=== PATIENT | female | born 1995 | race Caucasian/White ===

== ENCOUNTER 2022-05-08 18:12 | Observation (INO) | payer OTHER, SELFPAY ==
--- NOTE | 2022-05-08 16:06 | ECG_ITS ---
Measurements Intervals [place] Rate: 97 P: 42 FL: 131 QRS: 25 QRSD: 74 T: 20 QT: 316 QTc: 402 Interpretive Statements SINUS RHYTHM NORMAL ECG NO PREVIOUS ECG AVAILABLE FOR COMPARISON Electronically Signed On 05-08-2022 20:11:09 BLOOD BANK TECHNICIAN by Arian Hylton D.O.
[2022-05-08 16:32] VITALS: BP 130/77; PULSE 95; RESP 16; TEMP 36.9; O2SAT 99
[2022-05-08 16:59] LABS: Basophils Absolute Auto 0.1 K/mm3 (0.0-0.1); Basophils Percent Auto 0.6 % (0.2-1.2); Eosinophils Absolute Auto 0.1 K/mm3 (0-0.3); Eosinophils Percent Auto 0.9 % (0-4.4); Hematocrit 36.5 % (37.0-47.0); Hemoglobin 12.2 g/dL (12.0-15.0); Lymphocytes Absolute Auto 2.65 K/mm3 (0.9-3.2); Lymphocytes Percent Auto 27.7 % (18.3-44.2); Mean Corpuscular HGB Conc 33.4 g/dl (32-36); Mean Corpuscular Hemoglobin 27.8 pg (26-34); Mean Corpuscular Volume 83.1 fl (80-100); Mean Platelet Volume 10.2 fl (7.4-10.4); Monocytes Absolute Auto 0.6 K/mm3 (0.1-0.6); Monocytes Percent Auto 6.3 % (2.6-8.5); Neutrophils Absolute Auto 6.1 K/mm3 (1.3-6.7); Neutrophils Percent Auto 63.5 % (45.5-73.1); Platelet Count Result 309 k/mm3 (150-375); Red Blood Count 4.39 M/mm3 (4.2-5.4); Red Cell Distribution Width 12.6 % (11.5-14.5); White Blood Count 9.6 K/mm3 (4.5-10.0)
[2022-05-08 17:10] LABS: Potassium 4.2 mmol/L (3.4-5.0)
[2022-05-08 17:12] LABS: Appearance Urine Clear (Clear); Bilirubin Urine 1+ (Negative); Blood Urine Negative (Negative); Color Urine Yellow (Yellow); Glucose Urine UA Negative (Negative); Ketones Urine 1+ mg/dL (Negative); Leukocyte Esterase Ur Negative LEU/UL (Negative); Nitrate Urine Negative (Negative); Protein Urine 1+ mg/dL (Negative); Specific Grav Ur >= 1.030 (1.001-1.035); Urobilinogen Urine >=8.0 mg/dL (<2.0); pH Urine 5.5 (5.0-9.0)
[2022-05-08 17:12] LABS: Alanine Aminotransferase 29 U/L (6-35); Albumin Level 3.7 g/dL (3.5-5.1); Alkaline Phosphatase 167 U/L (38-126); Anion Gap 8 mmol/L (8-16); Aspartate Amino Transferase 26 U/L (14-36); Bilirubin,Total 0.4 mg/dL (0.2-1.3); Blood Urea Nitrogen 9 mg/dL (7-17); Calcium 9.3 mg/dL (8.4-10.2); Carbon Dioxide 22 mmol/L (22-30); Chloride 105 mmol/L (98-107); Estimated CRCL calculation 153 ml/min; Estimated Glomerular Filt Rate > 60; Glucose 92 mg/dL (65-110); Sodium 135 mmol/L (137-145)
[2022-05-08 17:18] LABS: Bacteria Urine Trace /hpf; Calcium Oxalate Crystals Urine Many /hpf; Mucus Urine Few /lpf; Squamous Epithelial Cell Urine Occasional /hpf (Few); WBC Urine 0-3 /hpf
[2022-05-08 17:28] LABS: Add Urine Microscopic? YES
[2022-05-08 18:27] VITALS: BP 123/71; PULSE 94
[2022-05-08 18:31] VITALS: BP 124/74; PULSE 93
[2022-05-08 18:46] VITALS: BP 127/78; PULSE 86
[2022-05-08] MEDS: LACTATED RINGERS 1,000 ML 999 ML IV CONT ×2 (19:02→20:40)
[2022-05-08 19:11] VITALS: BMI 36.1
--- NOTE | 2022-05-08 19:12 | OBADM ---
This patient, Luana Marrero, admitted to the OB room OB Post 113 for observation. Patient/family oriented to hospital policies and general routines including ID bracelet, bed and alarms, visiting hours, pain management, procedures, bathroom and other care routines, personal items, smoking policy, room service/diet, and visiting hours. Patient/Family are encouraged to report perceived risks to care and to ask questions if they do not understand what they are told or what they should do.
--- NOTE | 2022-05-08 19:16 | PC.NURSE ---
PT CAME FROM ER WITH C/O BEING DIZZY, LIGHTHEADED, ABDOMINAL CRAMPING-NO BLEEDING, RUQ PAIN, NO HEADACHE TODAY AND FOR THE LAST COUPLE DAYS. PT STATES THAT SHE HASN'T EATEN SINCE THIS AM AND HASN'T DRANK ALOT TODAY. 1841- SPOKE WITH DR. PAN IN L&D DEPT. INFORMED OF PT ADMISSION- LABS REVIEWED. VITALS REVIEWED. FHT REVIEWED. ORDER RECEIVED TO GIVE LR BOLUS AND MONITOR AND NST. WILL CONTINUE TO MONITOR PT AND CALL IF QUESTIONS/CONCERNS.
[2022-05-08 19:20] VITALS: PULSE 95
--- NOTE | 2022-05-08 20:24 | PC.NURSE ---
Called Dr. Wheeler- updated on pt status. UOP of 100 after 1 liter LR and 1 liter po fluids. order received to give another LR 500mL bolus and reevaluate after fluids are in . will continue to monitor and call if questions/concerns.
[2022-05-08 20:42] VITALS: TEMP 36.1
--- NOTE | 2022-05-08 21:19 | PC.NURSE ---
called Dr. Wheeler- after IV and po fluids and food pt states that she feels alot better and is wanting to d/c home. order received to d/c home with instructions on when to return to l&d.
--- NOTE | 2022-05-24 09:53 | PM.OBTRLD ---
OB - Triage/Final Diagnosis Visit Information Comments/Additional reasons for admission: I have assessed the risk for this patient, Luana Guevara, and determined that she would benefit from observation care. Evaluation Laboratory results: Laboratory Tests 05/08/22 05/08/22 05/08/22 16:50 16:50 17:03 WBC 9.6 RBC 4.39 Hgb 12.2 Hct 36.5 L MCV 83.1 MCH 27.8 MCHC 33.4 RDW 12.6 Plt Count 309 MPV 10.2 Immature Gran % (Auto) 1.0 H Neut % (Auto) 63.5 Lymph % (Auto) 27.7 [place] % (Auto) 6.3 Eos % (Auto) 0.9 Baso % (Auto) 0.6 Lymph # (Auto) 2.65 [place] # (Auto) 0.6 Eos # (Auto) 0.1 Baso # (Auto) 0.1 Abs Immat Gran (auto) 0.10 H Absolute Neuts (auto) 6.1 Absolute Nucleated RBC 0.0 Nucleated RBC % 0.0 Sodium 135 L Potassium 4.2 Chloride 105 Carbon Dioxide 22 Anion Gap 8 BUN 9 Creatinine 0.60 L Estim Creat Clear Calc 153 Estimated GFR > 60 Glucose 92 Calcium 9.3 Total Bilirubin 0.4 AST 26 ALT 29 Alkaline Phosphatase 167 H Total Protein 7.0 Albumin 3.7 Urine Color Yellow Urine Appearance Clear Urine pH 5.5 Ur Specific [place] >= 1.030 Urine Protein 1+ H Urine Glucose (UA) Negative Urine Ketones 1+ H Ur Blood (Man) Negative Urine Nitrate Negative Urine Bilirubin 1+ H Urine Urobilinogen >=8.0 Leukocyte Esterase Rfl Negative Urine RBC 6-10 H Urine WBC 0-3 Ur Squamous Epith Cells Occasional Calcium Oxalate Crystal Many Urine Bacteria Trace Urine Mucus Few H Final Diagnosis (1) Dizziness: Code(s): R42 - Dizziness and giddiness Status: Acute
== END 2022-05-08 21:36 | disposition home or self-care (01) ==
PROVIDERS: Emergency Medicine; Admitting Provider Obstetrics & Gynecology; Visit Provider Obstetrics & Gynecology
DX: O26.893 Other specified pregnancy related conditions, third trimester (principal); R42 Dizziness and giddiness; Z3A.34 34 weeks gestation of pregnancy
CPT/HCPCS: 36415; 59025; 80053; 81001; 85025; 93005; 96360; 96361; G0378; G0379; J7120

== ENCOUNTER 2022-05-12 19:53 | Observation (INO) | payer OTHER, SELFPAY ==
[2022-05-12] VITALS (12 sets, daily range): BP systolic 111; BP diastolic 73; PULSE 78–93; O2SAT 96–97
--- NOTE | 2022-05-12 20:00 | PC.NURSE ---
Pt arrived to unit with c/o lower back pain and pelvic pain that feels like strong period cramps . Pt denies any vaginal bleeding, leaking of fluid, or sexual intercourse in 24 hours and states she has been feeling movement. Pt states she has had 3 jugs of water to drink today and last ate at 1730 tonight.
[2022-05-12 20:41] LABS: Appearance Urine Clear (Clear); Bilirubin Urine Negative (Negative); Blood Urine Negative (Negative); Color Urine Yellow (Yellow); Glucose Urine UA Negative (Negative); Ketones Urine Negative (Negative); Leukocyte Esterase Ur Trace LEU/UL (Negative); Nitrate Urine Negative (Negative); Protein Urine Negative (Negative); Urobilinogen Urine 0.2 mg/dL (<2.0)
[2022-05-12 20:46] LABS: Amorphous Sediment Urine Few; Bacteria Urine 1+ /hpf; Mucus Urine Rare /lpf; RBC Urine 0-2 /hpf (0-2); Squamous Epithelial Cell Urine Occasional /hpf (Few)
[2022-05-12 20:47] LABS: Add Urine Microscopic? YES
--- NOTE | 2022-05-12 21:00 | PC.NURSE ---
Dr. Sinha called via freelance copywriter and informed of patient arrival and c/o strong period cramps, CAT1 tracing and no contractions on monitor with active movement. UA results given to MD. Orders received to discharge patient to home.
--- NOTE | 2022-05-17 07:17 | PM.OBTRLD ---
OB - Triage/Final Diagnosis Visit Information Comments/Additional reasons for admission: I have assessed the risk for this patient, Luana Guevara, and determined that she would benefit from observation care. Evaluation Laboratory results: Laboratory Tests 05/12/22 20:19 Urine Color Yellow Urine Appearance Clear Urine pH 7.0 Ur Specific [place] 1.010 Urine Protein Negative Urine Glucose (UA) Negative Urine Ketones Negative Ur Blood (Man) Negative Urine Nitrate Negative Urine Bilirubin Negative Urine Urobilinogen 0.2 Leukocyte Esterase Rfl Trace H Urine RBC 0-2 Urine WBC 4-6 H Ur Squamous Epith Cells Occasional Amorphous Sediment Few H Urine Bacteria 1+ H Urine Mucus Rare Final Diagnosis (1) contractions: Code(s): O47.00 - False labor before 37 completed weeks of gestation, unspecified trimester Status: Acute
== END 2022-05-12 21:20 | disposition home or self-care (01) ==
PROVIDERS: Admitting Provider Obstetrics & Gynecology; Visit Provider Obstetrics & Gynecology
DX: O47.00 False labor before 37 completed weeks of gestation, unspecified trimester (principal); Z3A.00 Weeks of gestation of pregnancy not specified
CPT/HCPCS: 59025; 81001; G0378; G0379

== ENCOUNTER 2022-06-06 06:28 | Inpatient (IN) | payer OTHER, SELFPAY ==
[2022-06-06] VITALS (145 sets, daily range): BP systolic 92–145; BP diastolic 44–117; PULSE 56–183; RESP 18; TEMP 36.2–36.9; O2SAT 95–100; BMI 35.2
--- NOTE | 2022-06-06 07:19 | LDADM ---
This patient, Luana Guevara, was admitted to Labor/Delivery/Recovery 108 on 06/06/22 at 06:28. Plans for labor, pain management and were discussed with patient. Patient/family oriented to hospital policies and general routines including ID bracelet, bed and alarms, visiting hours, pain management, procedures, bathroom and other care routines, personal items, smoking policy, room service/diet and guest tray routines, infant security routines, and visiting hours. Patient/Family are encouraged to report perceived risks to care and to ask questions if they do not understand what they are told or what they should do. See OBIX for further documentation.
[2022-06-06 07:49] LABS: Basophils Absolute Auto 0.1 K/mm3 (0.0-0.1); Basophils Percent Auto 0.9 % (0.2-1.2); Eosinophils Absolute Auto 0.1 K/mm3 (0-0.3); Eosinophils Percent Auto 0.5 % (0-4.4); Hematocrit 36.8 % (37.0-47.0); Hemoglobin 12.1 g/dL (12.0-15.0); Immature Granulocyte Percent A 0.9 % (0-0.5); Lymphocytes Absolute Auto 3.13 K/mm3 (0.9-3.2); Lymphocytes Percent Auto 29.6 % (18.3-44.2); Mean Corpuscular HGB Conc 32.9 g/dl (32-36); Mean Platelet Volume 10.7 fl (7.4-10.4); Monocytes Absolute Auto 0.7 K/mm3 (0.1-0.6); Monocytes Percent Auto 6.7 % (2.6-8.5); Neutrophils Absolute Auto 6.5 K/mm3 (1.3-6.7); Neutrophils Percent Auto 61.4 % (45.5-73.1); Platelet Count Result 291 k/mm3 (150-375); Red Blood Count 4.66 M/mm3 (4.2-5.4); Red Cell Distribution Width 12.7 % (11.5-14.5); White Blood Count 10.6 K/mm3 (4.5-10.0)
[2022-06-06] MEDS: LACTATED RINGERS 1,000 ML 125 ML IV CONT ×2 (08:06→15:40)
[2022-06-06] MEDS: OXYTOCIN 30 UNITS/NS 500 ML 30 UNITS/500 ML BAG 6 UNITS IV CONT (08:08)
[2022-06-06 10:33] LABS: Amphetamine Screen Urine Negative (Negative); Barbiturate Screen Urine Negative (Negative); Benzodiazepines Screen Urine Negative (Negative); Cannabinoid Screen Urine Negative (Negative); Cocaine Screen Urine Negative (Negative); Methadone Screen Urine Negative (Negative); Opiate Screen Urine Negative (Negative); Phencyclidine Screen Urine Negative (Negative)
--- NOTE | 2022-06-06 10:59 | WPDHPUPDATE1 ---
History and Physical Update Update Date/Time: 06/06/22 10:59 This patient is a 26-year-old 1 at term who presents for induction of labor. Elective. Artificial rupture membranes was performed. She has been receiving Pitocin IV for a few hours. IUPC was placed. The cervix is 3-1/2 cm / 50%/ -3. There is reassuring status. Expectant management. History and Physical has been reviewed, including an updated exam of the patient. There are NO changes in the patient's condition. Risks, benefits, and alternatives have been discussed and questions answered. Patient agrees to proceed with procedure.
[2022-06-06] MEDS: LACTATED RINGERS 1,000 ML 999 ML IV CONT ×2 (12:27→13:25)
[2022-06-06] MEDS: fentaNYL CITRATE INJ (*CRX) 100 MCG/2 ML VIAL IV PUSH (12:32)
--- NOTE | 2022-06-06 13:26 | WPDANESEPPF ---
Anes - Initial Pre Proc Eval Date/Time: 06/06/22 13:26 Surgeon: Garret Wheeler MD Pre Op Diagnosis: IOL Patient Data Age: 26 Gender: F Height: 1.7 m Weight: 102 kg Last Vital Signs Temp 36.4 C L 06/06/22 10:53 Pulse 86 06/06/22 13:16 BP 112/65 06/06/22 13:16 Allergies Allergy/AdvReac Type Severity Reaction Status Date / Time No Known Allergies Allergy Verified 05/08/22 16:35 Laboratory Tests 06/06/22 06/06/22 06/06/22 07:40 07:40 07:40 WBC 10.6 K/mm3 H K/mm3 (4.5-10.0) RBC 4.66 M/mm3 M/mm3 (4.2-5.4) Hgb 12.1 g/dL g/dL (12.0-15.0) Hct 36.8 % L % (37.0-47.0) MCV 79.0 fl L fl (80-100) MCH 26.0 pg pg (26-34) MCHC 32.9 g/dl g/dl (32-36) RDW 12.7 % % (11.5-14.5) Plt Count 291 k/mm3 k/mm3 (150-375) MPV 10.7 fl H fl (7.4-10.4) Immature Gran % (Auto) 0.9 % H % (0-0.5) Neut % (Auto) 61.4 % % (45.5-73.1) Lymph % (Auto) 29.6 % % (18.3-44.2) [place] % (Auto) 6.7 % % (2.6-8.5) Eos % (Auto) 0.5 % % (0-4.4) Baso % (Auto) 0.9 % % (0.2-1.2) Lymph # (Auto) 3.13 K/mm3 K/mm3 (0.9-3.2) [place] # (Auto) 0.7 K/mm3 H K/mm3 (0.1-0.6) Eos # (Auto) 0.1 K/mm3 K/mm3 (0-0.3) Baso # (Auto) 0.1 K/mm3 K/mm3 (0.0-0.1) Abs Immat Gran (auto) 0.10 K/mm3 H K/mm3 (0.00-0.031) Absolute Neuts (auto) 6.5 K/mm3 K/mm3 (1.3-6.7) Absolute Nucleated RBC 0.0 K/mm3 K/mm3 (0.0-0.012) Nucleated RBC % 0.0 % % (0.0-0.2) Urine Opiates Screen Urine Methadone Screen Ur Barbiturates Screen Ur Phencyclidine Scrn Ur Amphetamine Screen U Benzodiazepines Scrn Urine Cocaine Screen U Cannabinoids Screen RPR Pending Blood Type O Positive Antibody Screen Negative 06/06/22 09:59 WBC RBC Hgb Hct MCV MCH MCHC RDW Plt Count MPV Immature Gran % (Auto) Neut % (Auto) Lymph % (Auto) [place] % (Auto) Eos % (Auto) Baso % (Auto) Lymph # (Auto) [place] # (Auto) Eos # (Auto) Baso # (Auto) Abs Immat Gran (auto) Absolute Neuts (auto) Absolute Nucleated RBC Nucleated RBC % Urine Opiates Screen Negative (Negative) Urine Methadone Screen Negative (Negative) Ur Barbiturates Screen Negative (Negative) Ur Phencyclidine Scrn Negative (Negative) Ur Amphetamine Screen Negative (Negative) U Benzodiazepines Scrn Negative (Negative) Urine Cocaine Screen Negative (Negative) U Cannabinoids Screen Negative (Negative) RPR Blood Type Antibody Screen Patient hx anesthesia problems: none Family hx anesthesia problems: none Results Review: All pre-operative results and documents have been reviewed as part of the pre-operative evaluation. [facility] Social History Social History Years smoked: 9 Smoking status: Former smoker Additional smoking assessment comments: Pt. states she quit cigarettes 2 years ago and switched to vaping. Lack of Transportation: No Lack of Food: Sometimes True Current Housing: I Have Housing Concerned About Future Housing: No Difficulty Paying Gas/Electric Bills: No Difficulty Paying for Meds: No Currently Unemployed: No Education: High School Diploma/GED Difficulty w/ Childcare or Family Care: No Spiritual care concerns: No Anes - Eval Final PreProcedure Day of Procedure 06/06/22 13:26 Patient weight: obese Heart: regular rate and rhythm Lungs: clear to auscultation and normal air movement Airway: Mallampati scale class II Neurological: alert and oriented Last oral intake: >/= 8 hours
--- NOTE | 2022-06-06 18:47 | PM.OBPRVD ---
OB - Delivery Note Procedure Delivery date: 06/06/22 Procedure: vaginal delivery Induction method: AROM and Per Pitocin Protocol Delivery monitor: External FHT, External Uterine and Internal Uterine Route of delivery: Episiotomy description: None Laceration Description: None Delivery repair: vicryl Specimen: No Quantitative Blood Loss (ml): 90 Anesthesia type: Epidural Disposition: Floor Baby Date of : 06/06/22 Time of : 18:36 Weeks of gestation at delivery: 39 gender: Female Weight (pounds): 5 Weight (ounces): 7 presentation: vertex position: Left Occiput Anterior Placenta delivery description: Spontaneous Cord Vessel Description: 3 Vessels, Clamped/Cut and Delayed Cord Clamping score one minute: 9 score five minutes: 9 Narrative: mother and baby skin to skin in stable condition
[2022-06-06] MEDS: OXYTOCIN 30 UNITS/NS 500 ML 30 UNITS/500 ML BAG 125 UNITS IV CONT (18:58)
[2022-06-06] MEDS: IBUPROFEN 600 MG TABLET PO (21:59)
[2022-06-06] MEDS: WITCH HAZEL 40 PADS 1 PAD TOPICAL (22:00)
[2022-06-06] MEDS: BENZOCAINE 20% AER SPR (*SP) 56 GM CAN 1 SPRAY TOPICAL (22:00)
[2022-06-07] MEDS: ACETAMINOPHEN 325 MG TABLET 650 MG PO ×3 (01:44→16:53)
[2022-06-07 04:03] VITALS: BP 106/66; PULSE 66; RESP 20; TEMP 36.2; O2SAT 97
[2022-06-07 05:38] LABS: Hematocrit 33.1 % (37.0-47.0); Hemoglobin 10.6 g/dL (12.0-15.0)
--- NOTE | 2022-06-07 07:35 | PM.OBPNVD ---
OB - PN: Subj Subjective Date/time seen: 06/07/22 07:35 vaginal delivery day 1 OB - PN: Obj Data Labs 06/07/22 05:25 Labs: Laboratory Results - last 24 hr 06/06/22 06/06/22 06/06/22 07:40 07:40 09:59 WBC 10.6 H RBC 4.66 Hgb 12.1 Hct 36.8 L MCV 79.0 L MCH 26.0 MCHC 32.9 RDW 12.7 Plt Count 291 MPV 10.7 H Immature Gran % (Auto) 0.9 H Neut % (Auto) 61.4 Lymph % (Auto) 29.6 [place] % (Auto) 6.7 Eos % (Auto) 0.5 Baso % (Auto) 0.9 Lymph # (Auto) 3.13 [place] # (Auto) 0.7 H Eos # (Auto) 0.1 Baso # (Auto) 0.1 Abs Immat Gran (auto) 0.10 H Absolute Neuts (auto) 6.5 Absolute Nucleated RBC 0.0 Nucleated RBC % 0.0 Urine Opiates Screen Negative Urine Methadone Screen Negative Ur Barbiturates Screen Negative Ur Phencyclidine Scrn Negative Ur Amphetamine Screen Negative U Benzodiazepines Scrn Negative Urine Cocaine Screen Negative U Cannabinoids Screen Negative Blood Type O Positive Antibody Screen Negative 06/07/22 05:25 WBC RBC Hgb 10.6 L Hct 33.1 L MCV MCH MCHC RDW Plt Count MPV Immature Gran % (Auto) Neut % (Auto) Lymph % (Auto) [place] % (Auto) Eos % (Auto) Baso % (Auto) Lymph # (Auto) [place] # (Auto) Eos # (Auto) Baso # (Auto) Abs Immat Gran (auto) Absolute Neuts (auto) Absolute Nucleated RBC Nucleated RBC % Urine Opiates Screen Urine Methadone Screen Ur Barbiturates Screen Ur Phencyclidine Scrn Ur Amphetamine Screen U Benzodiazepines Scrn Urine Cocaine Screen U Cannabinoids Screen Blood Type Antibody Screen OB - PN A/P Plan day: 1 Time Spent With Patient Time: Total time spent is greater than 50% in coordination of care (as documented) at patient's floor/unit and/or counseling patient: Review of Systems Review of Systems: All systems reviewed & are unremarkable except as noted in HPI and below Exam Const: General: cooperative, healthy appearing and comfortable
--- NOTE | 2022-06-07 07:35 | WPDANLDPN2 ---
Anes-Prog Note L&D Date/Time: 06/07/22 07:35 Comfortable throughout: labor and delivery Neuraxial method: epidural Epidural/Spinal procedure site: clean & non-tender Neuro status: Neuro function grossly intact. Cardiovascular status: normal Respiratory status: normal Airway patency: baseline Mental status: baseline Post-Op hydration status: normal Vital Signs: Last Vital Signs Temp 36.2 C L 06/07/22 04:03 Pulse 66 06/07/22 04:03 Resp 20 06/07/22 04:03 BP 106/66 06/07/22 04:03 Pulse Ox 97 06/07/22 04:03 O2 Del Method Room Air 06/07/22 04:03 Pain score (VAS): 2 I/O: Intake & Output 06/06/22 06/06/22 06/07/22 15:59 23:59 07:59 Intake Total 3000 Output Total 90 Balance 3000 -90 Patient feedback: Patient satisfied with anesthetic care.
--- NOTE | 2022-06-07 07:45 | PC.NURSE ---
PT introductions made and plan of care discussed per post , pain management, breast/bottle feeding, daily care activities, and blood sugars. PT received such instructions per one to one discussion, mom baby care guide and demonstrations this shift. PT and significant other both recipients of such instructions and no barriers to learning identified at this time. PT verbalized understanding of such instructions.
[2022-06-07 09:00] VITALS: BP 99/76; PULSE 71; RESP 18; TEMP 36.7; O2SAT 98
[2022-06-07] MEDS: DOCUSATE SODIUM 100 MG CAPSULE PO ×2 (10:25→16:54)
[2022-06-07] MEDS: MULTIVIT/MIN/PREN/FOL AC/IRON TABLET 1 TAB PO (10:26)
[2022-06-07] MEDS: LANOLIN (LANSINOH) 7.5 GM CREAM 1 APPLIC TOPICAL (10:26)
[2022-06-07] MEDS: IBUPROFEN 600 MG TABLET PO ×2 (10:26→16:54)
[2022-06-07 10:27] VITALS: PULSE 79; RESP 16; O2SAT 98
[2022-06-07 12:05] VITALS: BP 106/63; PULSE 79; RESP 16; TEMP 36.8; O2SAT 98
--- NOTE | 2022-06-07 13:35 | PC.NURSE ---
[id number] Introductions were made, then consulted with patient to assess needs related to . Mother led the conversation with her?plans to feed?her infant and the?experience so far. Resources provided for inpatient using a mom/baby guide. Mother voiced understanding of information and requested assistance. Mother works well with her with encouragement and education. Encouraged understanding of the benefits of skin to skin (unwrapping infant and placing vertically on her chest), massage touch, responsive feeding, how to visualize early feeding signs, frequency of feeding on demand about every 8-12 times in 24 hours (every 2-3 hours), milk production, duration of feeding, signs of adequate intake/output and how to record on the feeding sheet. Reviewed positioning and ear, shoulder, hip alignment, supporting the breast, asymmetrical latch (off-center), and leading with the chin with a big open side gape. Infant latched optimally to the right breast in football position. Education given to mother of how to visualize suck/swallow ratios and drinking at the breast. Infant was unable to maintain latch for more than a few minutes at a time. was more eager after a few attempts working to encourage a big, open, wide latch. Nipple care reviewed with optimal latch and good positioning. Reviewed good handwashing when or touching the breast/nipples to prevent infection. Resources used to facilitate learning were used with the visual handouts, tool, mom and baby guide. Mother voiced understanding of responsive feedings, stimulating with skin to skin, hand expressed colostrum, massage touch, talking to infant to encourage if it has been 2 -3 hours since the start of the last , to call if infant does not latch or there is discomfort with . Reported to the primary RN. 1142 - Mother called for assistance with . Mother was encouraged to place infant upright skin to skin between her breast, massage touch, stimulating infant with changing position, talking and checking her diaper. 1144 -Blood sugar resulted at 95mg/dl Assisted mother with attempting to latch optimally with and without the nipple shield. Infant was able to latch without the nipple shield for several minutes on the left breast and demonstrates more eagerness than the earlier practice session. Mother is encouraged to keep working with practicing skin to skin and using the tips and techniques reviewed earlier. Mother voiced understanding to call for assistance with the next feeding, if infant doesn't wake to breastfeed, or if there's pain with and to practice responsive feedings every 2-3 hours or on demand when feeding cues are visualized. Reported to primary RN.
[2022-06-07 15:50] LABS: Rapid Plasma Reagin Non-Reactive (NonReactive)
--- NOTE | 2022-06-07 16:33 | PC.NURSE ---
[id number] Breast pump provided due to ineffective , inverted nipples and use of a nipple shield at times. Instructions given on cleaning, care, usage, that there should be no pain, pumping schedule for milk production, collection, and storage of human milk. Parents are encouraged to record pumping schedule on the feeding sheet. Patient was assessed for correct placement, flange size (21mm), to pump for comfort and nipple stretching/stimulation for adequate milk production every 3 hours (8 times in 24 hours) 1-2 times at night. Mother voiced understanding of the education shared along with mom and baby guide for additional resource information. Reported to the primary RN.
[2022-06-07 17:00] VITALS: BP 100/68; PULSE 82; RESP 20; TEMP 36.6; O2SAT 98
[2022-06-07 19:35] VITALS: BP 120/69; PULSE 72; RESP 20; TEMP 36.8; O2SAT 99
--- NOTE | 2022-06-08 06:14 | PM.OBPNVD ---
OB - PN: Subj Subjective Date/time seen: 06/08/22 06:14 vaginal delivery , day 2 OB - PN: Obj Data Labs 06/07/22 05:25 Labs: Laboratory Results - last 24 hr 06/06/22 07:40 RPR Non-reactive OB - PN A/P Plan day: 2 Plan: routine care and discharge home Time Spent With Patient Time: Total time spent is greater than 50% in coordination of care (as documented) at patient's floor/unit and/or counseling patient: Review of Systems Review of Systems: All systems reviewed & are unremarkable except as noted in HPI and below Exam Const: General: cooperative and healthy appearing Chest: Chest palpation & inspection: normal inspection of the chest Resp: Effort & Inspection: normal respiratory effort
--- NOTE | 2022-06-08 06:16 | P.DS_ITS ---
DS: Admitting Diagnosis Discharge Date 06/08/22 Admitting Diagnosis iol OB - DS: Summary OB Procedures : None OB Procedures Intrapartum: Spontaneous Vag Delivery OB Procedures: : None Time Spent with Patient Time attestation: Total time spent providing and/or coordinating discharge services: DS: Data Data Completed and Pending Labs on day of discharge: Labs from last 24 hours 06/06/22 07:40 RPR Non-reactive Discharge Plan Discharge Attending physician on discharge: Garret Wheeler Discharging Clinician: Svetlana Medrano Patient Disposition: Home, Self-Care Activity: pelvic rest Diet: regular Patient Instructions: Antibiotic Form Stand Alone Forms: General Discharge Information Follow-up/Referrals: Svetlana Medrano, ANTHONYM [Certified Nurse Cardiac/Vascular Sonographer] - 4 Weeks Discharge Medications: New ibuprofen 600 mg Tablet 600 mg PO Q6H PRN (Reason: Cramping) Qty: 30 0RF Date of admission: 06/06/22 06:28 Primary Care Provider: UNKNOWN,DOCTOR Admitting Provider: Garret Wheeler Attending physician on admission: Garret Wheeler Condition: Stable
[2022-06-08 08:00] VITALS: PULSE 73; RESP 16; O2SAT 98
--- NOTE | 2022-06-08 08:16 | PM.OBDSVD ---
DS: Admitting Diagnosis Discharge Date 06/08/22 Admitting Diagnosis term preg OB - DS: Summary OB Procedures : None OB Procedures Intrapartum: Spontaneous Vag Delivery OB Procedures: : None Time Spent with Patient Time attestation: Total time spent providing and/or coordinating discharge services: DS: Data Data Completed and Pending Labs on day of discharge: Labs from last 24 hours 06/06/22 07:40 RPR Non-reactive Discharge Plan Discharge Attending physician on discharge: Garret Wheeler Discharging Clinician: Svetlana Medrano Patient Disposition: Home, Self-Care Activity: pelvic rest Diet: regular Discharge Instructions: Education: Mom and Baby Guide Given to: Mother Follow-Up: Call your delivering provider's office for an appointment to be seen in: 6 Weeks Mom and baby should come to the [facility] for the follow-up appointment. Appointment Date/Time: June 09, 2022 at 8:00 am What to expect at your follow-up visit: Blood Pressure Check Call [phone] if you are unable to keep your appointment time. BREAST CARE: * Wear a snug supportive bra. * For engorgement discomfort: Bottle Feeding: * May apply ice packs PERINEAL CARE: * Until bleeding stops, use your rosetta bottle after urinating * Change your pad frequently throughout the day * You may take sitz baths several times a day (fill your bathtub with warm water and soak for 20 minutes.) Do NOT bathe in the water * No tub baths until seen by your physician - You may shower ACTIVITY: * Rest as much as possible. * Do not exercise or lift anything heavier than your baby (such as laundry or other children.) * Avoid stairs or driving as much as possible. * Do not put anything into the vagina. No douching, tampons, or sexual activity until seen by physician. NOTIFY PHYSICIAN IF YOU HAVE ANY QUESTIONS OR IF ANY OF THE FOLLOWING SYMPTOMS OCCUR: * If your perineum becomes red, swollen, or more painful than what you have experienced in the hospital. * If your vaginal bleeding becomes foul smelling. * If your vaginal bleeding becomes more heavy than a period or if your bleeding changes from pink to bright red. However, you may pass an occasional walnut- sized clot once or twice for the first week . * If you experience a sharp, shooting pain in you calves. * If you discover a hard, reddened area on your breast or if you experience flu-like symptoms. * If you have a fever of 100.4 or greater DIET: * Eat regular, well-balanced meals. * Drink plenty of fluids daily. If , drink to thirst. Patient Instructions: Antibiotic Form Stand Alone Forms: General Discharge Information Follow-up/Referrals: Svetlana Medrano CNM [Certified Nurse Solar Project Engineer] - 4 Weeks Discharge Medications: New ibuprofen 600 mg Tablet 600 mg PO Q6H PRN (Reason: Cramping) Qty: 30 0RF Date of admission: 06/06/22 06:28 Primary Care Provider: UNKNOWN,DOCTOR Admitting Provider: Garret Wheeler Attending physician on admission: Garret Wheeler Condition: Stable
[2022-06-08 08:50] VITALS: BP 100/62; PULSE 73; RESP 16; TEMP 37.1; O2SAT 98
[2022-06-08] MEDS: ACETAMINOPHEN 325 MG TABLET 650 MG PO ×2 (12:51→19:42)
[2022-06-08] MEDS: MULTIVIT/MIN/PREN/FOL AC/IRON TABLET 1 TAB PO (12:52)
[2022-06-08] MEDS: IBUPROFEN 600 MG TABLET PO ×2 (12:52→19:42)
[2022-06-08] MEDS: DOCUSATE SODIUM 100 MG CAPSULE PO (12:53)
--- NOTE | 2022-06-08 18:44 | PC.NURSE ---
Patients rubella status was verified in the record as being immune.
--- NOTE | 2022-06-08 19:45 | PC.NURSE ---
Patient viewed the discharge video Mother & Baby Care, The First Two Weeks . Patient was given the opportunity and encouraged to ask questions. Patient verbalized understanding of information shared and has been given the mother/baby guide for home reference.
--- NOTE | 2022-06-08 19:50 | PC.NURSE ---
Patient discharged to a no care bed. Supplies given.
[2022-06-10 10:01] VITALS: BP 114/75; PULSE 85; RESP 20; TEMP 36.8; O2SAT 98
== END 2022-06-08 19:50 | disposition home or self-care (01) | DRG 560 ==
LOC: ANHLDR 06:36 → ANHOB2 22:31
PROVIDERS: Advanced Practice Midwife; Admitting Provider Obstetrics & Gynecology; Visit Provider Obstetrics & Gynecology
DX: O36.5930 Maternal care for other known or suspected poor fetal growth, third trimester, not applicable or unspecified (principal); O32.6XX0 Maternal care for compound presentation, not applicable or unspecified; Z37.0 Single live birth; Z3A.39 39 weeks gestation of pregnancy
CPT/HCPCS: 36415; 80307; 85014; 85018; 85025; 86592; 86850; 86900; 86901; A9270; J2590; J2795; J3010; J7120

== ENCOUNTER 2024-02-21 15:58 | Emergency (ER) | payer OTHER, SELFPAY ==
--- NOTE | ~2024-02-21 | US_ITS ---
EXAMINATION: US OB <= 14 weeks fetus DATE: 02/21/2024 17:38 INDICATION: Right abdominal cramping. Vaginal bleeding. TECHNIQUE: Real-time transabdominal and transvaginal pelvic ultrasound was performed. COMPARISON: None. FINDINGS: TRANSABDOMINAL ULTRASOUND: The uterus measures 10.6 x 7.6 x 7.3 cm. TRANSVAGINAL ULTRASOUND: There is an intrauterine gestational sac. A yolk sac is identified. The fet al crown rump length measures 2.2 cm, which correlates with an estimated gestational age of 8 weeks a nd 6 days. heart motion is not identified by M-mode Doppler. The right ovary measures 3.0 x 3.1 x 2.2 cm. The left ovary is not well visualized. There is physiologic free fluid in the pelvis. IMPRESSION: 1. demise. Reviewed, dictated and finalized at location A. IMPRESSION: 1. demise.
[2024-02-21 16:04] VITALS: BP 116/78; PULSE 92; RESP 16; TEMP 36.8; O2SAT 98
--- NOTE | 2024-02-21 16:32 | ED.FEMALEGU ---
HPI - Female Genitourinary General Chief complaint: Vaginal Bleeding <Elmer Castillo PA-C - Last Filed: 02/21/24 16:38> Stated complaint: 12 weeks abd pain <Elmer Castillo PA-C - Last Filed: 02/21/24 16:38> Time Seen by Provider: 02/21/24 16:34 <Elmer Castillo PA-C - Last Filed: 02/21/24 16:38> Focused HPI: This is a 28-year-old female who is around 12 weeks , , and presents to the ED for chief complaint of abdominal pain and vaginal spotting. Reports over the past couple of days she has had right-sided abdominal cramps associated with brown vaginal discharge but no heavy bleeding. 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 Endorses nausea but no vomiting. Denies fevers, chills or any concern for STD. Endorses lightheadedness but denies syncope. Follows with Dr. Wheeler GENERAL: Well-appearing, well-nourished, and in no acute distress. HEAD: Normocephalic, atraumatic. CHEST: Clear to auscultation. No respiratory distress. HEART: Regular rate and rhythm. NEURO: Alert and oriented x3. Patient screened in triage and initial orders placed. Additional care and disposition to be based upon diagnostic testing and treatment. <Elmer Castillo PA-C - Last Filed: 02/21/24 16:38> Source: patient <Elmer Castillo PA-C - Last Filed: 02/21/24 16:38> Mode of arrival: EMS <Elmer Castillo PA-C - Last Filed: 02/21/24 16:38> Limitations: no limitations <Elmer Castillo PA-C - Last Filed: 02/21/24 16:38> History of Present Illness HPI Narrative: I agree with the note/assessment performed by Elmer Chow PA-C. <Maritza Stanley APRN - Last Filed: 02/21/24 21:52> Related Data Allergies/Adverse reactions: Allergies Allergy/AdvReac Type Severity Reaction Status Date / Time No Known Allergies Allergy Verified 05/08/22 16:35 <Elmer Castillo PA-C - Last Filed: 02/21/24 16:38> Review of Systems Review of Systems: All systems reviewed & are unremarkable except as noted in HPI and below <Maritza Stanley APRN - Last Filed: 02/21/24 21:52> [facility] Social History Social History: Social History Years smoked: 9 Smoking status: Former smoker Additional smoking assessment comments: Pt. states she quit cigarettes 2 years ago and switched to vaping. Lack of Transportation: No Lack of Food: Sometimes True Current Housing: I Have Housing Concerned About Future Housing: No Difficulty Paying Gas/Electric Bills: No Difficulty Paying for Meds: No Currently Unemployed: No Education: High School Diploma/GED Difficulty w/ Childcare or Family Care: No Spiritual care concerns: No <Elmer Castillo PA-C - Last Filed: 02/21/24 16:38> Exam Narrative: GENERAL: Well appearing, well-nourished, non-toxic, in no acute distress. HEAD: Normocephalic, atraumatic. NECK: Supple. No adenopathy, no masses. RESPIRATORY: Airway patent, respirations nonlabored. Clear to auscultation bilaterally, no rales, rhonchi, wheezing. CARDIOVASCULAR: Regular rate and rhythm without murmurs, rubs, or gallops. Peripheral pulses 2+ and equal bilaterally. ABDOMINAL: Soft, nontender, nondistended, no hepatosplenomegaly. Normoactive BS. MUSCULOSKELETAL: Moves all extremities. Strength/ROM intact without gross deformities. SKIN: Warm, dry, normal color. No rashes. NEURO: A&O X3. Speech clear. Cranial nerves II-XII grossly intact. Steady gait. No ataxic movements. PSYCHIATRIC: Appropriate mood and affect. Normal interaction. <Maritza Stanley APRN - Last Filed: 02/21/24 21:52> Course Consultations Consultation #1: Call placed to Dr. Wheeler, pt's OBGYN. He recommends pt follow-up with him in the office RAUDEL. <Maritza Stanley APRN - Last Filed: 02/21/24 21:52> Date: 02/21/24 <Maritza Stanley, HYDROELECTRIC OPERATOR - Last Filed: 02/21/24 21:52> Time: 21:31 <Maritza Stanley, DARRELL - Last
[2024-02-21 16:43] LABS: Basophils Percent Auto 0.6 % (0.2-1.2); Eosinophils Absolute Auto 0.1 K/mm3 (0-0.3); Eosinophils Percent Auto 1.5 % (0-4.4); Hematocrit 39.7 % (37.0-47.0); Hemoglobin 12.9 g/dL (12.0-15.0); Immature Granulocyte Absolute 0.03 K/mm3 (0.00-0.031); Immature Granulocyte Percent A 0.4 % (0-0.5); Lymphocytes Absolute Auto 1.53 K/mm3 (0.9-3.2); Lymphocytes Percent Auto 22.2 % (18.3-44.2); Mean Corpuscular HGB Conc 32.5 g/dl (32-36); Mean Corpuscular Hemoglobin 24.9 pg (26-34); Mean Corpuscular Volume 76.6 fl (80-100); Mean Platelet Volume 10.6 fl (7.4-10.4); Monocytes Absolute Auto 0.5 K/mm3 (0.1-0.6); Monocytes Percent Auto 6.7 % (2.6-8.5); Neutrophils Absolute Auto 4.7 K/mm3 (1.3-6.7); Neutrophils Percent Auto 68.6 % (45.5-73.1); Platelet Count Result 283 k/mm3 (150-375); Red Blood Count 5.18 M/mm3 (4.2-5.4); Red Cell Distribution Width 15.8 % (11.5-14.5); White Blood Count 6.9 K/mm3 (4.5-10.0)
[2024-02-21 16:57] LABS: Alanine Aminotransferase 14 U/L (6-35); Albumin Level 4.3 g/dL (3.5-5.1); Alkaline Phosphatase 57 U/L (38-126); Anion Gap 10 mmol/L (4-12); Aspartate Amino Transferase 19 U/L (14-36); Bilirubin,Total 0.5 mg/dL (0.2-1.3); Blood Urea Nitrogen 6 mg/dL (7-17); Calcium 9.5 mg/dL (8.4-10.2); Carbon Dioxide 22 mmol/L (22-30); Chloride 103 mmol/L (98-107); Estimated CRCL calculation 147 ml/min; Estimated Glomerular Filt Rate > 60; Glucose 92 mg/dL (65-110); INR 1.1; Potassium 3.7 mmol/L (3.4-5.0); Prothrombin Time 14.1 Seconds (11.1-14.7); Sodium 135 mmol/L (137-145)
[2024-02-21 16:58] LABS: Partial Thromboplastin Time 25.1 Seconds (22.3-36.8)
[2024-02-21 19:34] LABS: Add Urine Microscopic? YES; Appearance Urine Clear (Clear); Bacteria Urine None Seen /hpf; Bilirubin Urine Negative (Negative); Blood Urine Negative (Negative); Color Urine Yellow (Yellow); Glucose Urine UA Negative (Negative); Ketones Urine 2+ mg/dL (Negative); Leukocyte Esterase Ur Negative LEU/UL (Negative); Nitrate Urine Negative (Negative); Protein Urine 1+ mg/dL (Negative); RBC Urine 0-2 /hpf (0-2); Specific Grav Ur 1.017 (1.001-1.035); Squamous Epithelial Cell Urine None Seen /hpf (Few); WBC Urine 0-5 /hpf (0-3)
[2024-02-21] MEDS: ONDANSETRON INJ 4 MG/2 ML VIAL IV PUSH (20:34)
[2024-02-21] MEDS: SODIUM CHLORIDE 0.9% IV 1,000 ML 999 ML IV CONT (20:34)
[2024-02-21 20:36] VITALS: BP 115/77; PULSE 68; RESP 18; O2SAT 100
[2024-02-21] MEDS: HYDROcodone/acetaminophen (*CRX) 5-325 MG TABLET 1 TAB PO (21:49)
[2024-02-21 22:45] VITALS: BP 109/76; PULSE 62; RESP 18; O2SAT 99
== END 2024-02-21 22:45 | disposition home or self-care (01) ==
PROVIDERS: Physician Assistant; Emergency Provider Registered Nurse; Referring Provider Obstetrics & Gynecology
DX: O03.4 Incomplete spontaneous abortion without complication (principal); Z3A.12 12 weeks gestation of pregnancy; O99.331 Smoking (tobacco) complicating pregnancy, first trimester; F17.290 Nicotine dependence, other tobacco product, uncomplicated
CPT/HCPCS: 36415; 76801; 80053; 81001; 84702; 85025; 85461; 85610; 85730; 86850; 86900; 86901; 96361; 96374; 99284; A9270; J2405; J7030

== ENCOUNTER 2024-02-25 15:21 | Emergency (ER) | payer OTHER, SELFPAY ==
--- NOTE | ~2024-02-25 | US_ITS ---
US OB <=14 wk fetus w TV Ordering provider: Jeane Renee PA-C History: . bleeding, . Comparison: None. Technique: Transabdominal and endovaginal ultrasound of the pelvis (Doppler ultrasound interrogation techniques used as needed for this exam.) FINDINGS: CERVIX: Normal. UTERUS: Measures 10.9x 6.3x 7.5 cm in length which is within normal limits and is anteverted. No rose metrial masses. ENDOMETRIUM: Thickened endometrium with no yolk sac or pole seen. Minimal fluid is seen around the endometrial cavity. CUL DE SAC: Minimal free fluid. RIGHT OVARY: Normal in size measuring 2.8x 2.5x 2 cm. Normal echotexture. Doppler vascular flow prese nt. LEFT OVARY: Normal in size measuring 2.9x2.3x 2 cm. Normal echotexture. Doppler vascular flow present . ADNEXA: Normal. No mass. IMPRESSION: No retained products seen. Minimal fluid around the endometrial cavity. Slightly thickened endometriu m. Reviewed, dictated and finalized at location A. IMPRESSION: No retained products seen. Minimal fluid around the endometrial cavity. Slightl y thickened endometrium.
[2024-02-25 15:35] VITALS: BP 127/77; PULSE 107; RESP 18; TEMP 36.6; O2SAT 100
--- NOTE | 2024-02-25 15:37 | ED.RECABL ---
HPI - Recheck/Abnormal Lab/Rx General Chief Complaint: Recheck/Abnormal Lab/Rx <Jeane Renee PA-C - Last Filed: 02/25/24 19:19> Stated Complaint: SENT IN FOR ULTRASOUND <eJane Renee PA-C - Last Filed: 02/25/24 19:19> Time Seen by Provider: 02/25/24 15:37 <Jeane Renee PA-C - Last Filed: 02/25/24 19:19> Focused HPI: This is a 28-year-old female that presents to the emergency department for vaginal bleeding. Reports she is currently about 8 weeks . Was seen here a couple of days ago and told she was having a miscarriage. Has had worsening bleeding and pain today which prompted her to be seen. Her OB is Dr. Wheeler. GENERAL: Well-appearing, well-nourished, and in no acute distress. HEAD: Normocephalic, atraumatic. CHEST: Clear to auscultation. ?No respiratory distress. HEART: Regular rate and rhythm.? NEURO: ?Alert and oriented x3. Patient screened in triage and initial orders placed.? ?Additional care and disposition to be based upon?diagnostic testing and treatment. <Jeane Renee PA-C - Last Filed: 02/25/24 19:19> Related Data Allergies/Adverse Reactions: Allergies Allergy/AdvReac Type Severity Reaction Status Date / Time No Known Allergies Allergy Verified 05/08/22 16:35 <Jeane Renee PA-C - Last Filed: 02/25/24 19:19> Review of Systems Review of Systems: All systems reviewed & are unremarkable except as noted in HPI and below <Maritza Stanley APRN - Last Filed: 02/25/24 19:09> PMFSH Past Medical History Medical History: Medical History (Updated 02/25/24 @ 19:19 by Jeane Renee PA-C) No active medical problems <Jeane Renee PA-C - Last Filed: 02/25/24 19:19> Social History Social History: Social History Years smoked: 9 Smoking status: Former smoker Additional smoking assessment comments: Pt. states she quit cigarettes 2 years ago and switched to vaping. Lack of Transportation: No Lack of Food: Sometimes True Current Housing: I Have Housing Concerned About Future Housing: No Difficulty Paying Gas/Electric Bills: No Difficulty Paying for Meds: No Currently Unemployed: No Education: High School Diploma/GED Difficulty w/ Childcare or Family Care: No Spiritual care concerns: No <Jeane Renee PA-C - Last Filed: 02/25/24 19:19> Exam Narrative: GENERAL: Well appearing, well-nourished, non-toxic, in no acute distress. RESPIRATORY: Airway patent, respirations nonlabored. Clear to auscultation bilaterally, no rales, rhonchi, wheezing. CARDIOVASCULAR: Regular rate and rhythm without murmurs, rubs, or gallops. Peripheral pulses 2+ and equal bilaterally. ABDOMINAL: Soft, tender especially on LLQ, nondistended, no hepatosplenomegaly. Normoactive BS. MUSCULOSKELETAL: Moves all extremities. Strength/ROM intact without gross deformities. SKIN: Warm, dry, normal color. No rashes. NEURO: A&O X3. Speech clear. Cranial nerves II-XII grossly intact. PSYCHIATRIC: Appropriate mood and affect. Normal interaction. <Maritza Stanley, SUBSTATION SUPERINTENDENT - Last Filed: 02/25/24 19:09> Course Vital Signs Vital signs: Vital Signs Temperature 97.9 F 02/25/24 15:35 Pulse Rate 107 H 02/25/24 15:35 Respiratory Rate 18 02/25/24 15:35 Blood Pressure 127/77 02/25/24 15:35 Pulse Oximetry 100 02/25/24 15:35 Temperature 98.0 F 02/25/24 18:51 Pulse Rate 78 02/25/24 18:51 Respiratory Rate 14 02/25/24 18:51 Blood Pressure 129/71 02/25/24 18:51 Pulse Oximetry 97 02/25/24 18:51 <Jeane Renee PA-C - Last Filed: 02/25/24 19:19> Vital Signs Temperature 97.9 F 02/25/24 15:35 Pulse Rate 107 H 02/25/24 15:35 Respiratory Rate 18 02/25/24 15:35 Blood Pressure 127/77 02/25/24 15:35 Pulse Oximetry 100 02/25/24 15:35 Temperature 98.0 F 02/25/24 18:51 Pulse Rate 78 02/25/24 18:51 Respiratory Rate 14 02/25/24
--- NOTE | 2024-02-25 15:47 | PC.NURSE ---
Pt to U/S via w/c from w/r at this time.
[2024-02-25 16:22] LABS: Basophils Absolute Auto 0.1 K/mm3 (0.0-0.1); Basophils Percent Auto 0.5 % (0.2-1.2); Eosinophils Absolute Auto 0.1 K/mm3 (0-0.3); Eosinophils Percent Auto 0.9 % (0-4.4); Hematocrit 37.1 % (37.0-47.0); Immature Granulocyte Absolute 0.05 K/mm3 (0.00-0.031); Immature Granulocyte Percent A 0.4 % (0-0.5); Lymphocytes Absolute Auto 1.74 K/mm3 (0.9-3.2); Lymphocytes Percent Auto 14.9 % (18.3-44.2); Mean Corpuscular HGB Conc 32.3 g/dl (32-36); Mean Corpuscular Hemoglobin 24.8 pg (26-34); Mean Corpuscular Volume 76.8 fl (80-100); Mean Platelet Volume 10.4 fl (7.4-10.4); Monocytes Absolute Auto 0.6 K/mm3 (0.1-0.6); Monocytes Percent Auto 5.3 % (2.6-8.5); Neutrophils Absolute Auto 9.1 K/mm3 (1.3-6.7); Platelet Count Result 279 k/mm3 (150-375); Red Blood Count 4.83 M/mm3 (4.2-5.4); Red Cell Distribution Width 15.9 % (11.5-14.5); White Blood Count 11.7 K/mm3 (4.5-10.0)
[2024-02-25 16:33] LABS: Partial Thromboplastin Time 28.4 Seconds (22.3-36.8); Prothrombin Time 14.1 Seconds (11.1-14.7)
[2024-02-25 16:34] LABS: Alanine Aminotransferase 10 U/L (6-35); Alkaline Phosphatase 67 U/L (38-126); Anion Gap 9 mmol/L (4-12); Aspartate Amino Transferase 15 U/L (14-36); Bilirubin,Total 0.3 mg/dL (0.2-1.3); Blood Urea Nitrogen 6 mg/dL (7-17); Calcium 9.3 mg/dL (8.4-10.2); Carbon Dioxide 24 mmol/L (22-30); Chloride 99 mmol/L (98-107); Estimated CRCL calculation 127 ml/min; Estimated Glomerular Filt Rate > 60; Glucose 92 mg/dL (65-110); Potassium 3.8 mmol/L (3.4-5.0); Sodium 132 mmol/L (137-145)
[2024-02-25] MEDS: HYDROcodone/acetaminophen (*CRX) 5-325 MG TABLET 1 TAB PO (16:53)
[2024-02-25 16:54] VITALS: BP 128/75; PULSE 72; RESP 14; O2SAT 97
[2024-02-25] MEDS: SODIUM CHLORIDE 0.9% IV 1,000 ML 999 ML IV CONT (17:57)
[2024-02-25] MEDS: KETOROLAC 15 MG/ML VIAL (*BKC) IV PUSH (17:58)
[2024-02-25] MEDS: MORPHINE SULFATE (*CRX) 2 MG/ML INJ IV PUSH (17:58)
[2024-02-25 18:06] LABS: Add Urine Microscopic? YES; Appearance Urine Clear (Clear); Bacteria Urine None Seen /hpf; Bilirubin Urine Negative (Negative); Blood Urine 3+ (Negative); Color Urine Yellow (Yellow); Glucose Urine UA Negative (Negative); Ketones Urine Trace mg/dL (Negative); Leukocyte Esterase Ur Negative LEU/UL (Negative); Nitrate Urine Negative (Negative); Non Pathogenic Casts 0-2; Protein Urine Negative (Negative); RBC Urine >100 /hpf (0-2); Specific Grav Ur 1.011 (1.001-1.035); Squamous Epithelial Cell Urine None Seen /hpf (Few); WBC Urine 0-5 /hpf (0-3)
[2024-02-25 18:51] VITALS: BP 129/71; PULSE 78; RESP 14; TEMP 36.7; O2SAT 97
== END 2024-02-25 19:23 | disposition home or self-care (01) ==
PROVIDERS: Physician Assistant; Emergency Provider Registered Nurse
DX: O03.9 Complete or unspecified spontaneous abortion without complication (principal)
CPT/HCPCS: 36415; 76801; 76817; 80053; 81001; 84702; 85025; 85461; 85610; 85730; 86850; 86900; 86901; 96361; 96374; 96375; 99284; A9270; J1885; J2270; J7030

== ENCOUNTER 2024-02-27 22:44 | Emergency (ER) | payer OTHER, SELFPAY ==
--- NOTE | ~2024-02-27 | US_ITS ---
US OB transvaginal Ordering provider: Lizbeth Barahona PA-C History: . bleeding s/p miscarriage . Comparison: None. Technique: Transabdominal and endovaginal ultrasound of the pelvis (Doppler ultrasound interrogation techniques used as needed for this exam.) FINDINGS: CERVIX: Normal. UTERUS: Measures 10.3 cm in length which is within normal limits and is anteverted. No myometrial ma sses. Small hypoechoic area with increased vascularity is seen in the lower endometrium. ENDOMETRIUM: Normal in thickness measuring 10 mm.No cysts or fluid. Small hypoechoic area with increa sed vascularity is seen in the lower endometrium. CUL DE SAC: No free fluid. RIGHT OVARY: Normal in size measuring 2.7x 2 x 1.7 cm. Normal echotexture. Doppler vascular flow pres ent. LEFT OVARY: Normal in size measuring 2.4x 1.2x 1.6 cm. Normal echotexture. Doppler vascular flow pres ent. ADNEXA: Normal. No mass. IMPRESSION: Small hypoechoic area in the lower endometrium with increased vascularity. Differential include abort ion in progress versus retained products endometrial polyp. Further clinical evaluation advised. Othe rwise, normal pelvic ultrasound. Reviewed, dictated and finalized at location A. IMPRESSION: Small hypoechoic area in the lower endometrium with increased vascularity. Diff erential include in progress versus retained products endometrial poly p. Further clinical evaluation advised. Otherwise, normal pelvic ultrasound.
[2024-02-27 22:43] VITALS: BP 124/92; PULSE 94; RESP 18; TEMP 36.4; O2SAT 100
--- NOTE | 2024-02-27 23:15 | ED.PREGNANCY ---
HPI - General Chief complaint: Vaginal Bleeding Stated complaint: VAGINAL BLEEDING S/P MISCARRIAGE LAST WEEK. Time Seen by Provider: 02/27/24 22:56 Source: patient and old records reviewed Mode of arrival: EMS Limitations: no limitations History of Present Illness HPI Narrative: Patient is a 28 y/o female who presents to the ED via EMS with report of vaginal bleeding. Patient reports she was recently diagnosed with demise in the ED on 02/20. . Had been approximately 12 weeks gestation, was told the baby was measuring around 8 weeks. Was seen by Dr. Wheeler, given Cytotec. Has had appropriate bleeding since then. Was seen in the ED again on 02/24 for more heavy vaginal bleeding. Had repeat US which showed no evidence of retained POC. Patient was supposed to follow up with Dr. Wheeler in the office on 02/26, but had issues with transportation and was unable to make the appointment. Returns tonight with worsening vaginal bleeding, passing large clots. Patient also reports having worsening lower abdominal cramping. Took Tylenol this morning, but has not had anything since. Denies nausea, vomiting, dizziness, lightheadedness, fevers. Related Data Allergies Allergy/AdvReac Type Severity Reaction Status Date / Time No Known Allergies Allergy Verified 02/27/24 22:54 Review of Systems Review of Systems: All systems reviewed & are unremarkable except as noted in HPI. All systems reviewed & are unremarkable except as noted in HPI and below PMFSH Past Medical History Medical History No active medical problems Social History Social History Years smoked: 9 Smoking status: Former smoker Additional smoking assessment comments: Pt. states she quit cigarettes 2 years ago and switched to vaping. Lack of Transportation: No Lack of Food: Sometimes True Current Housing: I Have Housing Concerned About Future Housing: No Difficulty Paying Gas/Electric Bills: No Difficulty Paying for Meds: No Currently Unemployed: No Education: High School Diploma/GED Difficulty w/ Childcare or Family Care: No Spiritual care concerns: No Exam Narrative: GENERAL: Well appearing, well-nourished, non-toxic, in no acute distress. HEAD: Normocephalic, atraumatic. RESPIRATORY: Airway patent, respirations nonlabored. Clear to auscultation bilaterally, no rales, rhonchi, wheezing. CARDIOVASCULAR: Regular rate and rhythm without murmurs, rubs, or gallops. ABDOMINAL: Soft, diffuse lower abdominal tenderness. Nondistended. Normoactive BS. PELVIC: Normal external genitalia. Cervical os appears dilated with clot present in vaginal canal. Few small clots throughout vaginal vault. Mild amount of bleeding, dark red in color. No hemorrhage or pooling of fluid. MUSCULOSKELETAL: Moves all extremities. No gross deformities. SKIN: Warm, dry, normal color. NEURO: A&O X3. Speech clear. PSYCHIATRIC: Appropriate mood and affect. Normal interaction. Course Vital Signs Vital signs: Vital Signs Temperature 97.6 F 02/27/24 22:43 Pulse Rate 94 02/27/24 22:43 Respiratory Rate 18 02/27/24 22:43 Blood Pressure 124/92 H 02/27/24 22:43 Pulse Oximetry 100 02/27/24 22:43 Oxygen Delivery Room Air 02/27/24 22:43 Temperature 97.6 F 02/27/24 22:43 Pulse Rate 95 02/28/24 00:57 Respiratory Rate 18 02/28/24 00:57 Blood Pressure 131/88 02/28/24 00:57 Pulse Oximetry 99 02/28/24 00:57 Oxygen Delivery Room Air 02/27/24 22:43 MDM - OB/Uterine Contractions MDM Narrative Medical decision making narrative: Patient presented to ED with vaginal bleeding, recent diagnosis of demise/miscarriage, completed a course of Cytotec, now reporting worsening bleeding with clots. Vital signs are stable upon arrival. Patient in no acute distress. Records reviewed. Laboratory studies toda
[2024-02-27] MEDS: ACETAMINOPHEN 500 MG TABLET 1000 MG PO (23:39)
[2024-02-27] MEDS: KETOROLAC 30 MG/ML VIAL (*BKC) IV PUSH (23:40)
[2024-02-27] MEDS: SODIUM CHLORIDE 0.9% IV 1,000 ML 999 ML IV CONT (23:40)
[2024-02-27 23:51] LABS: Alanine Aminotransferase 11 U/L (6-35); Albumin Level 3.7 g/dL (3.5-5.1); Alkaline Phosphatase 53 U/L (38-126); Anion Gap 10 mmol/L (4-12); Aspartate Amino Transferase 17 U/L (14-36); Bilirubin,Total 0.2 mg/dL (0.2-1.3); Blood Urea Nitrogen 7 mg/dL (7-17); Carbon Dioxide 19 mmol/L (22-30); Chloride 107 mmol/L (98-107); Estimated CRCL calculation 166 ml/min; Estimated Glomerular Filt Rate > 60; Glucose 100 mg/dL (65-110); Potassium 3.6 mmol/L (3.4-5.0); Sodium 136 mmol/L (137-145)
[2024-02-28 00:10] LABS: Beta HCG Quantitative 700.11 mIU/ML
[2024-02-28 00:35] LABS: Basophils Absolute Auto 0.1 K/mm3 (0.0-0.1); Eosinophils Absolute Auto 0.1 K/mm3 (0-0.3); Eosinophils Percent Auto 1.6 % (0-4.4); Hematocrit 34.2 % (37.0-47.0); Immature Granulocyte Absolute 0.04 K/mm3 (0.00-0.031); Immature Granulocyte Percent A 0.5 % (0-0.5); Lymphocytes Absolute Auto 2.63 K/mm3 (0.9-3.2); Lymphocytes Percent Auto 31.7 % (18.3-44.2); Mean Corpuscular HGB Conc 32.2 g/dl (32-36); Mean Corpuscular Hemoglobin 25.1 pg (26-34); Mean Corpuscular Volume 78.1 fl (80-100); Mean Platelet Volume 10.4 fl (7.4-10.4); Monocytes Absolute Auto 0.6 K/mm3 (0.1-0.6); Monocytes Percent Auto 7.2 % (2.6-8.5); Neutrophils Absolute Auto 4.8 K/mm3 (1.3-6.7); Platelet Count Result 309 k/mm3 (150-375); Red Blood Count 4.38 M/mm3 (4.2-5.4); Red Cell Distribution Width 15.9 % (11.5-14.5); White Blood Count 8.3 K/mm3 (4.5-10.0)
[2024-02-28 00:57] VITALS: BP 131/88; PULSE 95; RESP 18; O2SAT 99
[2024-02-28 02:22] LABS: Add Urine Microscopic? YES; Appearance Urine Turbid (Clear); Bilirubin Urine Negative (Negative); Blood Urine 3+ (Negative); Color Urine Orange (Yellow); Glucose Urine UA Negative (Negative); Ketones Urine Negative (Negative); Leukocyte Esterase Ur 1+ LEU/UL (Negative); Nitrate Urine Negative (Negative); Protein Urine 1+ mg/dL (Negative); Specific Grav Ur 1.007 (1.001-1.035); Urobilinogen Urine 0.2 mg/dL (<2.0); pH Urine 5.5 (5.0-9.0)
== END 2024-02-28 02:43 | disposition home or self-care (01) ==
PROVIDERS: Emergency Provider Physician Assistant
DX: O03.4 Incomplete spontaneous abortion without complication (principal)
CPT/HCPCS: 36415; 76817; 80053; 81001; 84702; 85025; 87086; 96361; 96374; 99284; A9270; J1885; J7030

== ENCOUNTER 2024-08-18 13:32 | Outpatient (CLI) | payer OTHER, SELFPAY ==
[2024-08-18 13:57] LABS: Hemoglobin 10.9 g/dL (12.0-15.0); Mean Corpuscular HGB Conc 31.1 g/dl (32-36); Mean Corpuscular Hemoglobin 21.8 pg (26-34); Mean Platelet Volume 10.1 fl (7.4-10.4); Platelet Count Result 347 k/mm3 (150-375); Red Cell Distribution Width 17.2 % (11.5-14.5); White Blood Count 6.3 K/mm3 (4.5-10.0)
[2024-08-18 14:42] LABS: Hepatitis B Surface Antigen Negative (Negative); Rubella IgG Antibody 84.5 IU/ML
[2024-08-18 14:51] LABS: HIV 1/2 Ab P24 Ag Result Negative (Negative)
[2024-08-18 16:19] LABS: Syphilis IgG/IgM Antibody Negative (Negative)
[2024-08-19 08:34] LABS: CMV IgG Antibody <0.60 U/mL; Varicella IgG Antibody 1.34 S/CO
== END 2024-08-18 13:33 | disposition home or self-care (01) ==
LOC: ANHLAB 13:33
PROVIDERS: Visit Provider Obstetrics & Gynecology
DX: N91.2 Amenorrhea, unspecified (principal)
CPT/HCPCS: 36415; 84702; 85027; 86592; 86593; 86644; 86703; 86747; 86762; 86787; 86850; 86900; 86901; 87086; 87340; G0432

== ENCOUNTER 2024-09-24 10:15 | Outpatient (CLI) | payer OTHER, SELFPAY ==
--- NOTE | ~2024-09-24 | US_ITS ---
EXAMINATION: US OB <=14 wk fetus w TV DATE: 09/24/2024 11:48 CDT INDICATION: Pelvic and perineal pain COMPARISON: None TECHNIQUE: Real-time transabdominal obstetric ultrasound. FINDINGS: 6 para 1 Estimated date of delivery by last menstrual period is 03/18/2025). The uterus 10.1 x 9.9 x 12.3 cm. A gestational sac is identified within the uterus. A pole is identified, with a crown-rump length that measures 4.6 cm, corresponding to an approx imate gestational age of 11 weeks and 3 days. cardiac activity is identified at a rate of 166 bpm. The right ovary measures 3.5 x 1.7 x 1.9 cm. The left ovary measures 2.3 x 0.8 x 0.9 cm. Estimated date of delivery by ultrasound is 04/12/2025 IMPRESSION: Single intrauterine gestation with an approximate gestational age of 11 weeks and 3 days, with cardiac activity identified. Reviewed, dictated and finalized at location A. IMPRESSION: Single intrauterine gestation with an approximate gestational age of 11 weeks a nd 3 days, with cardiac activity identified.
--- OUTSIDE RECORDS SUMMARY | 2024-09-24 11:38 | XMS_ITS | Data Portability ---
Author Organization [facility] Address [address] [place] [address] [place] [address] Assessment No assessment recorded. Plan of Treatment Reminders Order Date Submit Date Provider Last Modified By Organization Details Last Modified Time Details Appointments None recorded. Lab test, urine 2023 024 [address], [address], [place], [address], 13:08:48 Referral None recorded. Procedures None recorded. Surgeries None recorded. Imaging US, obstetric, transvagina l [address], [address], [address], [place], [address], 23:33:04 US, obstetric, 1st trimester [address], [facility] [address], [place], [address], 21:14:04 Medication Orders Cytotec 200 mcg tablet 2023 024 [facility] [address] [place], [address], 4 12:50:32 promethazin e 25 mg tablet 2023 024 [facility] [address], [address] [place], [address], 12:50:42 Patient TargetsNo targets recorded. Patient InstructionsNo instructions recorded. Reason for Referral None Reported. Results Created Date Observation Date Name Description Value Unit Range Abnormal Flag Note LastModifiedBy Organization Detail LastModifiedTime 01/31/20 24 01/31/2024 CT/GC AND TRICH OMONA S VAGIN DIXON (RRNA ), URINE chlamydia trachomatis, PCR Negati ve negati ve Not Available [facility] (Lab) [address] [facility], [place], [address], 02/01/2024 12:53:19 01/31/20 24 01/31/2024 CT/GC AND TRICH OMONA S VAGIN DIXON (RRNA ), URINE neisseria gonorrhoeae, PCR Negati ve negati ve Not Available [facility] (Lab) [address] [facility] [facility], [place], [address], 02/01/2024 12:53:19 01/31/20 24 01/31/2024 CT/GC AND TRICH OMONA S VAGIN DIXON (RRNA ), URINE trichomonas vaginalis ribosomal RNA (rrna) Negati ve negati ve Not Available [facility] (Lab) [address] [facility] [facility], [place], [address], 02/01/2024 12:53:19 03/10/20 24 03/10/2024 BHCG, QUANT ITATI VE B-HCG 28.0 mIU/m L This assay was perfo rmed using [employer] ratio n reage nts and test kits. Value s obtai sherrill with other assay metho ds or kits canno t be used inter villasenor eably . Refer ence Range s: Non-p regna nt, preme nopau hansa women : 0.0-5 .3 mIU/m L Postm enopa usal women : 0.0-7 .0 mIU/m L Camryn l Pregn chelly: Gesta sophia l Age bHCG Conc. - mIU/m L 3 Weeks 5.8 - 71.7 4 Weeks 9.5 - 750 5 Weeks 217-7 138 6 Weeks 158 - 31,79 5 7 Weeks 3,697 - 162,5 63 8 Weeks 32,06 5 - 149,5 71 9 Weeks 63,80 3 - 151,4 10 10 Weeks 46,50 9 - 186,9 77 12 Weeks 27,83 2 - 210,6 12 14 Weeks 13,95 0 - 62,53 0 15 Weeks 12,03 9 - 70,97 1 16 Weeks 9,040 - 56,45 1 17 Weeks 8,175 - 55,86 8 18 Weeks 8,099 - 58,17 6 Not Available [facility] (Lab) [address] [facility], [place], [address], 03/11/2024 07:48:22 03/10/20 24 03/10/2024 LEAD, BLOOD (ADUL T/PED IATRI C) lead, whole blood <1.0 mcg/d L <3.5 See Note 1 James sis was perfo rmed by Yazan Leonard ed Plasm a Mass Spect romet ry (ICPM S) Note 1 This test was devel oped and its james tical perfo rmanc e roseanna cteri stics have been deter mined by [employer]. It has not been clear ed or appro mary kay by the FDA. This assay has been valid ated pursu ant to the CLIA regul ation s and is used for clini riya purpo ses. Ethni city: [facility] ontristin Perfo rming Organ izati on Infor fadijil n: Site ID: [id number] Name: [facility]orenzo deja Larry Addre ss: [address] [place] [address] Direc tor: Donna Alafro s Not Available [facility] (Lab) [address] [facility] [facility], [place], [address], 03/12/2024 10:05:19 03/18/20 24 03/18/2024 BHCG, QUANT ITATI VE B-HCG 8.4 mIU/m L This assay was perfo rmed using [employer] ratio n reage nts and test kits. Value s obtai sherrill with other assay metho ds or kits canno t be used inter villasenor eably . Refer ence Range s: Non-p regna nt, preme nopau hansa women : 0.0-5 .3 mIU/m L Postm enopa usal women : 0.0-7 .0 mIU/m L Camryn l Pregn chelly: Gesta sophia l Age bHCG Conc. - mIU/m L 3 Weeks 5.8 - 71.7 4 Weeks 9.5 - 750 5 Weeks 217-7 138 6 Weeks 158 - 31,79 5 7 Weeks 3,697 - 162,5 63 8 Weeks 32,06 5 - 149,5 71 9 Weeks 63,80 3 - 151,4 10 10 Weeks 46,50 9 - 186,9 77 12 Weeks 27,83 2 - 210,6 12 14 Weeks 13,95 0 - 62,53 0 15 Weeks 12,03 9 - 70,97 1 16 Weeks 9,040 - 56,45 1 17 Weeks 8,175 - 55,86 8 18 Weeks 8,099 - 58,17 6 Not Available [facility] (Lab) [address] [facility] [facility], [place], [address], 03/19/2024 05:47:33 03/18/20 24 03/18/2024 pregn chelly test, urine HCG positi ve Not Available [facility] [address], [place], [address], 03/18/2024 13:04:46 03/25/20 24 03/25/2024 BHCG, QUANT ITATI VE B-HCG 3.9 mIU/m L This assay was perfo rmed using [employer] n reage nts and test kits. Value s obtai sherrill with other assay metho ds or kits canno t be used inter villasenor eably . Refer ence Range s: Non-p regna nt, preme nopau hansa women : 0.0-5 .3 mIU/m L Postm enopa usal women : 0.0-7 .0 mIU/m L Camryn l Pregn chelly: Gesta sophia l Age bHCG Conc. - mIU/m L 3 Weeks 5.8 - 71.7 4 Weeks 9.5 - 750 5 Weeks 217-7 138 6 Weeks 158 - 31,79 5 7 Weeks 3,697 - 162,5 63 8 Weeks 32,06 5 - 149,5 71 9 Weeks 63,80 3 - 151,4 10 10 Weeks 46,50 9 - 186,9 77 12 Weeks 27,83 2 - 210,6 12 14 Weeks 13,95 0 - 62,53 0 15 Weeks 12,03 9 - 70,97 1 16 Weeks 9,040 - 56,45 1 17 Weeks 8,175 - 55,86 8 18 Weeks 8,099 - 58,17 6 Not Available [facility] (Lab) [address], [place], [address], 03/26/2024 14:43:06 01/31/20 24 01/31/2024 US, obste tric, 1st trime ster No observ ation record ed. [facility] [address], [place], [address], 01/31/2024 18:06:17 01/31/20 24 01/31/2024 US, obste tric, follo w-up No observ ation record ed. [email or web address] [facility] [address], [place], [address], 02/01/2024 14:53:55 02/22/20 24 02/25/2024 US, obste tric, trans vagin al No observ ation record ed. [email or web address] [facility] [address], [place], [address], 02/25/2024 11:46:34 02/22/20 24 02/22/2024 US, obste tric, trans vagin al No observ ation record ed. CHRISTIN [facility] [address], [place], [address], 02/25/2024 12:03:50 Result Notes None recorded. Problems Name Problem SNOMED Code Status Onset Date Resolution Date Notes Provider Name and Address Organization Details Recorded Time 53557683 Completed 202109/06/2022 Dorys dobson [place] - [facility] 03/22/202 3 22:58:54 Asthma 392071443 Completed very mild [facility] 3 22:58:48 Asperger's disorder 43163556 Completed [facility] 3 22:58:48 growth abnormality 517472983 Completed 4% on 04/10 [facility] 3 22:58:48 Problem Notes None recorded. Procedures Surgical History Date Name Laterality Status Provider Name and Address Organization Details Recorded Time 09/15/19 23 Date of Last Pap Smear completed [facility] 05/24/2023 10:42:30 06/18/19 05 Appendectomy completed [facility] 03/11/2022 10:33:48 Imaging Results Imaging Date Name Status LastModified by Organization Details LastModified Time 01/31/2024 [facility] obstetric, [facility]st [facility] [address], [place], [address], 01/31/2024 18:06:17 01/31/2024 US, obstetric, follow-up completed [email or web address] [facility] [address], [place], [address], 02/01/2024 14:53:55 02/25/2024 US, obstetric, transvaginal completed [address], [place], [address], 02/25/2024 11:46:34 02/22/2024 US, obstetric, transvaginal completed CHRISTIN [facility] [address], [place], [address], 02/25/2024 12:03:50 Procedure Notes None recorded. Medical Equipment None Reported. Allergies No known drug allergies Medications Name Sig Start Date Stop Date Status Note LastModified by Organization Details LastModified Time nystatin 100,000 unit/gram topical ointment APPLY OINTMENT TOPICALLY TO AFFECTED AREA TWICE DAILY 01/30 completed Not Available Not Available Not Available fluconazole 150 mg tablet Take 1 tablet every other day by oral route. 09/14 completed Not Available Not Available Not Available hydrocodone 5 mg-acetamin ophen 325 mg tablet TAKE 1 TABLET BY MOUTH EVERY 6 HOURS NEEDED 03/18 completed Not Available Not Available Not Available terconazole 0.8 % vaginal cream Insert 1 applicato rful every day by vaginal route as directed for 3 days. 09/14 completed Not Available Not Available Not Available ciprofloxac in 500 mg tablet TAKE 1 TABLET BY MOUTH EVERY 12 HOURS FOR 5 DAYS 01/30 completed Not Available Not Available Not Available ondansetron 8 mg disintegrat ing tablet DISSOLVE 1 TABLET IN MOUTH NEEDED EVERY 4 TO 6 HOURS 01/30 completed Not Available Not Available Not Available nystatin-tr iamcinolone 100,000 unit/gram-0 .1 % topical ointment Apply by topical route for 7 days. 01/30 completed Not Available Not Available Not Available triamcinolo ne acetonide 0.1 % topical ointment APPLY A THIN LAYER TO THE AFFECTED AREA(S) BY TOPICAL ROUTE 2 TIMES PER DAY 01/30 completed Not Available Not Available Not Available misoprostol 200 mcg tablet INSERT 5 TABLETS VAGINALLY 03/18 completed Not Available Not Available Not Available promethazin e 25 mg tablet TAKE 1 TABLET BY MOUTH EVERY 4 HOURS 03/18 completed Not Available Not Available Not Available methylpredn isolone 4 mg tablets in a dose pack TAKE BY MOUTH DIRECTED ON INSIDE OF PACKAGE 01/30 completed Not Available Not Available Not Available sertraline 50 mg tablet TAKE 1 TABLET BY MOUTH ONCE DAILY 01/30 completed Not Available Not Available Not Available amoxicillin 875 mg-potassiu m clavulanate 125 mg tablet TAKE 1 TABLET BY MOUTH TWICE DAILY 01/30 completed Not Available Not Available Not Available multivitami n 01/30 completed Not Available Not Available Not Available Vitals Date Recorded Body height Body mass index (BMI) Body weight Systolic blood pressure Diastolic blood pressure Provider Name and Address Organization Details Last Updated DateTime 01/31/2024 170.18 cm 34.8 kg/m2 759373.5 1 g 101 mm[Hg] 69 mm[Hg] Maribel Vazquez [facility] 4 12:11:04 Date Recorded Body height Body mass index (BMI) Body weight Body height Body mass index (BMI) Body weight Systolic blood pressure Diastolic blood pressure Systolic blood pressure Diastolic blood pressure Provider Name and Address Organization Details Last Updated DateTime 4 170.18 cm 34.1 kg/m2 92308.1 4 g 170.18 cm 34.1 kg/m2 54428.1 4 g 123 mm[Hg] 78 mm[Hg] 123 mm[Hg] 78 mm[Hg] Nadia Kaiser [facility] 4 17:28:20 Date Recorded Body height Body mass index (BMI) Body weight Systolic blood pressure Diastolic blood pressure Provider Name and Address Organization Details Last Updated DateTime 03/18/2024 170.18 cm 34 kg/m2 71444.98 g 106 mm[Hg] 84 mm[Hg] Lucie Slater [facility] 4 12:50:08 Social History Question Answer Notes LastModified by Organizat ion Details LastModified Time Tobacco Smoking Status Never Smoker [facility] 03/11/2022 12:22:10 What Is Your Level Of Alcohol Consumption? None Information not available 03/11/2022 If You Are , What Was Your Level Of Alcohol Consumption Prior To ? Occasional Information not available 03/11/2022 Are You Blind Or Do You Have Difficulty Seeing? No Information not available 03/11/2022 In The 14 Days Before Symptom Onset, Have You Had Close Contact With A Laboratory-confir med COVID-19 While That Case Was Ill? No Information not available 01/31/2024 In The 14 Days Before Symptom Onset, Have You Had Close Contact With A Person Who Is Under Investigation For COVID-19 While That Person Was Ill? No Information not available 01/31/2024 Have You Been To An Area Known To Be High Risk For COVID-19? No Information not available 01/31/2024 Are You Deaf Or Do You Have Serious Difficulty Hearing? No Information not available 03/11/2022 Do You Or Have You Ever Used E-cigarettes Or Vape? Current User Of Electronic Cigarettes Information not available 03/11/2022 Are You Sexually Active? Yes Information not available 03/11/2022 Do You Or Have You Ever Used Any Other Forms Of Tobacco Or Nicotine? Yes Information not available 03/11/2022 Sex: Female Functional Status Question Answer Note LastModified by Organizat ion Details LastModified Time Do you have difficulty walking or climbing stairs? No Information not available 03/11/2022 Are you able to walk? YESWOREST Information not available 03/11/2022 Are you able to care for yourself? Yes Information not available 03/11/2022 Do you have difficulty dressing or bathing? No Information not available 03/11/2022 Mental Status None recorded. Family History Relationship Description Onset Age of this Age Resolved Age Notes LastModified by Organization Details LastModified Time Mother Asthma Not available 03/11/2022 13:07:52 Mother Malignant tumor of breast Not available 2021 13:08:04 Mother Heart disease Not available 2021 13:08:31 Mother Hyperlipidem ia [email or web address] Not available 2023 10:47:22 Mother Hypertensive disorder Not available 2021 13:09:06 Mother Malignant tumor of ovary Not available 2021 13:09:18 Mother Cyst of ovary [email or web address] Not available 2023 10:47:22 Brother Asthma Not available 03/11/2022 13:07:52 Maternal Grandmother Heart disease Not available 2021 13:08:31 Maternal Grandfather Heart disease Not available 2021 13:08:31 Maternal Grandfather Hyperlipidem ia [email or web address] Not available 2023 10:47:22 Maternal Grandfather Hypertensive disorder Not available 2021 13:09:06 Father Seizure disorder [email or web address] Not available 2023 10:47:22 Medical History Condition Response Other Y Polycystic ovary syndrome Y Anxiety Disorder Y Asthma Y Depression/ depression Y Gynecological History Statement/Question Response Abnormal Pap N Flow Moderate Date of LMP 12/03/2023 On BCP's at Conception? Y Was last menstrual period normal Y STIs/STDs N HPV Vaccine Y Duration of Flow (days) 7 Current Control Method Age at First Child 26 Are cycles usually normal Y Frequency of Cycle (Q days) 30 Sexually Active? Y Menses Monthly Y Age of first menstrual cycle 10 Date of Last Pap Smear 09/14/2022 Sexual Problems? Y Desired Control Method None LMP Definite Obstetrics History GPAL:G 4 P 1 0 3 1 Type Value Full Term 1 Spontaneous 3 Living 1 Total 4 Past Encounters Encounter ID Performer Location Encounter Start Date Encounter Closed Date Diagnosis/Indication Diagnosis SNOMED-CT Code Diagnosis ICD10 Code Diagnosis Note [id number] Nereida Castellon [facility] [address] [address] 03/09/2022 11:00:19 03/09/2022 12:42:00 screening for malformation 774180366 Z36.3 [id number] Jose Wheeler MD [facility] [address],[place] [address] 03/11/2022 11:56:07 03/13/2022 15:33:14 Routine care 214681161 Z34.82 [id number] Jose Wheeler MD [facility] [address],[place] [address] 03/31/2022 10:57:44 03/31/2022 11:44:48 Routine care 073544173 Z34.82 [id number] Jose Wheeler MD [facility] [address],[place] [address] 04/14/2022 11:00:57 04/14/2022 12:20:56 Nausea and vomiting 51724219 R11.2 [id number] Jose Wheeler MD [facility] [address],[place] [address] 05/23/2022 11:16:08 05/23/2022 12:05:34 Vaginitis 40428913 N76.0 Routine an tenatal care 123338161 Z34.82 [id number] Jose Wheeler MD [facility] [address],[place] [address] 06/01/2022 15:15:04 06/01/2022 16:52:51 Routine care 485303092 Z34.82 [id number] Jose Wheeler MD [facility] [address],[place] [address] 07/07/2022 14:40:23 07/07/2022 16:19:52 care 433266045 Z39.2 patient is 26-year-ol d female who is 4 weeks from a vaginal . Is doing well. She stopped bleeding. Her mood is good. Her baby is good. She does not want any contracept ion at this time. She is bottle feeding. She has not had sex. She will follow-up in 2 months for well-woman exam. [id number] Jose Wheeler MD [facility] [address],[place] [address] 09/14/2022 15:47:01 09/14/2022 16:50:46 Gynecologic examination 84592339 Z01.419 Annual gynecologi riya exam performed. Patient will come back in a year unless there are new symptoms. Suggest Calcium with Vitamin D if not eating in diet. Patient advised to get annual flu shot. Recommend yearly physicals and preform monthly breast exams. Genetic testing is available for patients with family history of cancer. Engage in safe sexual practices, use condoms. Encouraged to have daily exercise. Avoid tobacco and illicit drugs, moderation of alcohol. If BMI greater than 25 dietary consult advised. If you have any questions please call or email. Cholestero l - orderedx Pap - today depression 58 173749 F53.0 [id number] ADRIANA Vela [facility] [address],[place] [address] 11/30/2022 12:19:29 11/30/2022 15:48:19 Vulval irritation 303213589 N90.89 Reviewed vulvar care guidelines - free and clear laundry products, avoiding scented soaps/vagi nal washes, cotton underwear only, sleep with no underwearv aginitis panel sentSTI endocervic al testing sentRx sent, R/B/A discussedr ecommended crisco to vulva twice dailyRTC in 1 month for f/u Time spent in visit is a total of 30 mins with at least 50% of visit consisting of counseling and review of plan of care. Venereal d isease screening 927321494 Z11.3 Contact dermatitis 67175 004 L25.9 [id number] [facility] [address],[place] [address] 01/31/2024 10:47:11 01/31/2024 11:53:42 Uterine size for dates discrepancy 485230292 O26.841 Z3A.01 [id number] Jose Wheeler MD [facility] [address],[place] [address] 01/31/2024 10:47:37 01/31/2024 12:52:11 Nausea and vomiting 67605426 R11.2 Amenorrhea 22452370 N91. 2 this patient is a 28-year-ol d female who presents for amenorrhea . She is a positive test. Ultrasound revealed a 1st trimester gestation. Patient has no complaints . We talked about early care. Talked about genetic screening. We talked about her ultrasound results. We talked about the 12 week ultrasound that has genetic screening components . She was given recommenda tions on exercise, diet, over-the-c ounter medication s. We reviewed her obstetric history. We reviewed her medical history. We reviewed her social history. She will begin routine care at her next visit. Previous growth restrictio n [id number] Nereida Castellon [facility] [address],[place] [address] 02/22/2024 17:01:45 02/25/2024 08:29:13 Missed miscarriage 47194400 O02.1 Z3A.00 [id number] Jose Wheeler MD [facility] [address],[place] [address] 02/22/2024 17:27:19 02/26/2024 02:59:46 Missed miscarriage 84942301 O02.1 Z3A.00 This patient is a 28 female who presents for missed discussed the etiology, frequency, natural history, and treatment of this condition. Spent more than 35 minutes talking about the above, as well as, her history, the particular findings of her case, and detail of her the treatment options. We discussed the risk benefits of each option. She understand s the risk include infection and hemorrhage . She understand s a D&C also holds the risk of injury. She understand s that waiting can result in a septic that is even more difficult to treat. We talked about signs and symptoms of infection. has decided do use Cytotec. She is given instructio ns, medication was prescribed . We talked about precaution s, instructio ns, we talked about risks, benefits, and alternativ es. I spent over 30 minutes on this patient's care. [id number] Jose Wheeler MD [facility] [address] [address] 03/18/2024 12:41:38 03/18/2024 13:16:30 Missed miscarriage 42141842 O02.1 Z3A.00 this patient is a 28-year-ol d female who presents for follow-up after missed miscarriag e. She was treated with Cytotec. She believed to passed the entire . She has a very faint positive test today. She had a very low HCG just 2 days ago. she will repeat urine test in 1 week. She has minimal bleeding. She denies any nausea, vomiting, fever, chills. She is going to try to get again shortly. She was given precaution s and instructio ns. Health Concerns Section Related Observation LastModified by Organization Detai ls LastModified Time None Recorded Concern Status LastModified by Organization Details LastModified Time None Recorded Advance Directives Directive None Recorded Payers Encounter Date Sequence Insurance Name Policy Number Policy Valladares Covered Member ID Valladares Member ID Guarantor Name 01/31/2024 1 [facility] (MEDICAID HMO) [id number] Luana Guevara [id number] Luana Woods Tellor 01/31/2024 1 [facility] (MEDICAID HMO) [id number] Luana Tellor [id number] Luana Woods Tellor 02/22/2024 1 [facility] (MEDICAID HMO) [id number] Luana Tellor [id number] Luana Woods Tellor 02/22/2024 1 [facility] (MEDICAID HMO) [id number] Luana Tellor [id number] Luana Woods Tellor 03/18/2024 1 [facility] (MEDICAID HMO) [id number] Luana Tellor [id number] Luana Woods Tellor Notes Date Note Type Note Provider Name and Address Organization Details Recorded Time 01/31/2024 text/html this patient is a 28-year-old female who presents for amenorrhea. She is a positive test. Ultrasound revealed a 1st trimester gestation. Patient has no complaints. We talked about early care. Talked about genetic screening. We talked about her ultrasound results. We talked about the 12 week ultrasound that has genetic screening components. She was given recommendations on exercise, diet, krmp-oaw-xlszowc medications. We reviewed her obstetric history. We reviewed her medical history. We reviewed her social history. She will begin routine care at her next visit. Previous growth restriction Jose Wheeelr MD [address], [place], [address], [facility] 01/31/2024 12:51:20 02/22/2024 text/html This patient is a 28 female who presents for missed discussed the etiology, frequency, natural history, and treatment of this condition. Spent more than 35 minutes talking about the above, as well as, her history, the particular findings of her case, and detail of her the treatment options. We discussed the risk benefits of each option. She understands the risk include infection and hemorrhage. She understands a D&C also holds the risk of injury. She understands that waiting can result in a septic that is even more difficult to treat. We talked about signs and symptoms of infection.has decided do use Cytotec. She is given instructions, medication was prescribed. We talked about precautions, instructions, we talked about risks, benefits, and alternatives. I spent over 30 minutes on this patient's care. Jose Wheeler MD [address], [place], [address], [facility] 02/24/2024 22:20:48 03/18/2024 text/html this patient is a 28-year-old female who presents for follow-up after missed miscarriage. She was treated with Cytotec. She believed to passed the entire . She has a very faint positive test today. She had a very low HCG just 2 days ago. she will repeat urine test in 1 week. She has minimal bleeding. She denies any nausea, vomiting, fever, chills. She is going to try to get again shortly. She was given precautions and instructions. Jose Wheeler MD [address], [place], [address], [facility] 03/18/2024 13:09:19 OBGyn Episode Ob Episode Information Episode Created Date Number of Fetuses Patient Bloodtype Patient rh Status Prepregnancy Weight lbs Domestic Partner Domestic Partner Phone Father Name Demolition Specialist Status 03/11/20 22 1 CLOSED Fetus Data First Name Last Name Admitted to NICU Weight (g) Sex Living Outcome Pediatric Complications Fetus ID Race Codes Race Delivery Type , Spontane ous [id number] Santana Calculation Initial Santana Date Initial Exam Date Initial Exam Provider Initial Ultrasound Date Last Menstrual Period Date Ultra Sound Weeks Gestation 0 Eighteen To Twenty Week Santana Update Ultra Sound Date Fundal Height At Umbil Quickening Date Ultra Sound Latest Weeks Gestation Final Santana Confirmed By Final Santana Confirmed Date Final Santana Date Ultra Sound Latest Days Gestation 0 0 Menstrual History Last Menstrual Date Menses Monthly On Bcp Conception Prior Menses Frequency Hcg Plus Date Menarche Onset Age Delivery Information Delivery Date Delivery Type Labor Anesthesia Weeks Gestation Incision Type Labor Labor Length Hrs Delivered By Post Complications Tubal Sterilization Discharge Date Comments 5 Discharge Information Feeding Method Contraceptive Method Maternal HG B and HCT Levels Ob Episode Information Episode Created Date Number of Fetuses Patient Bloodtype Patient rh Status Prepregnancy Weight lbs Domestic Partner Domestic Partner Phone Father Name Demolition Specialist Status 03/11/20 22 1 CLOSED Fetus Data First Name Last Name Admitted to NICU Weight (g) Sex Living Outcome Pediatric Complications Fetus ID Race Codes Race Delivery Type , Spontane ous [id number] Santana Calculation Initial Santana Date Initial Exam Date Initial Exam Provider Initial Ultrasound Date Last Menstrual Period Date Ultra Sound Weeks Gestation 0 Eighteen To Twenty Week Santana Update Ultra Sound Date Fundal Height At Umbil Quickening Date Ultra Sound Latest Weeks Gestation Final Santana Confirmed By Final Santana Confirmed Date Final Santana Date Ultra Sound Latest Days Gestation 0 0 Menstrual History Last Menstrual Date Menses Monthly On Bcp Conception Prior Menses Frequency Hcg Plus Date Menarche Onset Age Delivery Information Delivery Date Delivery Type Labor Anesthesia Weeks Gestation Incision Type Labor Labor Length Hrs Delivered By Post Complications Tubal Sterilization Discharge Date Comments 6 Discharge Information Feeding Method Contraceptive Method Maternal HG B and HCT Levels Ob Episode Information Episode Created Date Number of Fetuses Patient Bloodtype Patient rh Status Prepregnancy Weight lbs Domestic Partner Domestic Partner Phone Father Name Demolition Specialist Status 03/11/20 22 1 CLOSED Fetus Data First Name Last Name Admitted to NICU Weight (g) Sex Living Outcome Pediatric Complications Fetus ID Race Codes Race Delivery Type , [place]ane ous [id number] Santana Calculation Initial Santana Date Initial Exam Date Initial Exam Provider Initial Ultrasound Date Last Menstrual Period Date Ultra Sound Weeks Gestation 0 Eighteen To Twenty Week Santana Update Ultra Sound Date Fundal Height At Umbil Quickening Date Ultra Sound Latest Weeks Gestation Final Santana Confirmed By Final Santana Confirmed Date Final Santana Date Ultra Sound Latest Days Gestation 0 0 Menstrual History Last Menstrual Date Menses Monthly On Bcp Conception Prior Menses Frequency Hcg Plus Date Menarche Onset Age Delivery Information Delivery Date Delivery Type Labor Anesthesia Weeks Gestation Incision Type Labor Labor Length Hrs Delivered By Post Complications Tubal Sterilization Discharge Date Comments 6 Discharge Information Feeding Method Contraceptive Method Maternal HG B and HCT Levels Ob Episode Information Episode Created Date Number of Fetuses Patient Bloodtype Patient rh Status Prepregnancy Weight lbs Domestic Partner Domestic Partner Phone Father Name Demolition Specialist Status 03/11/20 22 1 O Positive CLOSED Fetus Data First Name Last Name Admitted to NICU Weight (g) Sex Living Outcome Pediatric Complications Fetus ID Race Codes Race Delivery Type true Full Term [id number] Vaginal Delivery Problems Problem Notes Per VIVIANA Desouza 05/19 - Pt is s cheduled weekly for BPP every Sunday until 06/05, will ONLY add on NST if growth drops below 5%, if above, NST is not warranted. VIVIANA HARTLEYNext appt: 05/29 u/s only 145PCMV NEGGBS NEG Problem Name Start Date End Date Resolution Snomed Code Not e Asthma [id number] very mild growth abnormality [id number] 4% on 04/10 Asperger's disorder [id number] Santana Calculation Initial Santana Date Initial Exam Date Initial Exam Provider Initial Ultrasound Date Last Menstrual Period Date Ultra Sound Weeks Gestation 06/14/2022 03/11/2022 11/03/2021 09/07/2021 8 Eighteen To Twenty Week Santana Update Ultra Sound Date Fundal Height At Umbil Quickening Date Ultra Sound Latest Weeks Gestation Final Santana Confirmed By Final Santana Confirmed Date Final Santana Date Ultra Sound Latest Days Gestation 0 [email or web address] 03/11/2022 06/13/20 22 0 Pre-maryann Flowsheet Flowsheet Date 03/11/2022 Romero Score Blood Edema Fundus Height Fundus Units Glucose Ketones Leukocytes Nitrite Labor Signs Protein Cervic Dilation Cervic Effacement Cervic Station 26 Type Weight in lbs Pre/Post Dialysis Refused Weight 226.952938677508 BP Diastolic BP Location Tested BP Systolic BP Type 76 R arm 116 sitting Fetus Heart Rate Present A 145 Fetus Movement Comments this patient is a 4 para 0030 at 26 weeks gestation who presents for transfer of care. She has no complaints today. She has an unremarkable medical, surgical, obstetric history. She is on vaccinated for COVID. She has never been infected with COVID. She is given vaccine recommendations. We reviewed her laboratory evaluation today. There are labs we may still need to obtain. She has diabetes testing coming up in 2 weeks. She does have early , 8 week, ultrasound that agrees with her last menstrual period. she will begin/continue routine care. Flowsheet Date 03/31/2022 Romero Score Blood Edema Fundus Height Fundus Units Glucose Ketones Leukocytes Nitrite Labor Signs Protein Cervic Dilation Cervic Effacement Cervic Station 31 Type Weight in lbs Pre/Post Dialysis Refused Weight 229.020872449365 BP Diastolic BP Location Tested BP Systolic BP Type 84 L arm 110 sitting Fetus Heart Rate Present A 126 Fetus Movement A Yes Comments not sleeping well, pinching discomfort in lower back, increase in vaginal d/c, clear and sometimes white. Flowsheet Date 04/14/2022 Romero Score Blood Edema Fundus Height Fundus Units Glucose Ketones Leukocytes Nitrite Labor Signs Protein Cervic Dilation Cervic Effacement Cervic Station 32 Type Weight in lbs Pre/Post Dialysis Refused Weight 227.116699442994 BP Diastolic BP Location Tested BP Systolic BP Type 74 R arm 109 sitting Fetus Heart Rate Present A 138 Fetus Movement Comments no problems, no complaints, mfm every sunday fir SGA Flowsheet Date 05/23/2022 Romero Score Blood Edema Fundus Height Fundus Units Glucose Ketones Leukocytes Nitrite Labor Signs Protein Cervic Dilation Cervic Effacement Cervic Station 1cm 50% -3 Type Weight in lbs Pre/Post Dialysis Refused Weight 223.522385424032 BP Diastolic BP Location Tested BP Systolic BP Type 80 R arm 122 sitting Fetus Heart Rate Present A 145 Fetus Movement A Yes Comments c/o of vaginal irritation an d itching , reasonable exam, cervix is open, need to induce at 39 weeks for growth restriction. Scheduling. Flowsheet Date 06/01/2022 Romero Score Blood Edema Fundus Height Fundus Units Glucose Ketones Leukocytes Nitrite Labor Signs Protein Cervic Dilation Cervic Effacement Cervic Station 2cm 40% Type Weight in lbs Pre/Post Dialysis Refused Weight 224.984839485839 BP Diastolic BP Location Tested BP Systolic BP Type 74 R arm 110 sitting Fetus Heart Rate Present A 145 Fetus Movement Comments increased lower back and pel mina pain/pressure. Flowsheet Date 07/07/2022 Romero Score Blood Edema Fundus Height Fundus Units Glucose Ketones Leukocytes Nitrite Labor Signs Protein Cervic Dilation Cervic Effacement Cervic Station Type Weight in lbs Pre/Post Dialysis Refused Weight 220.481185770204 BP Diastolic BP Location Tested BP Systolic BP Type 81 R arm 129 sitting Fetus Heart Rate Present Fetus Movement Comments Menstrual History Last Menstrual Date Menses Monthly On Bcp Conception Prior Menses Frequency Hcg Plus Date Menarche Onset Age 0309/07/2021 Genetic Screening And Infection History Question Response Note Mental Retardation/Autism false Patient's Age Will Be 35 Years Or Older At Estim ated Date of Delivery false Thalassemia (Guyanese, Djiboutian, Mediterranean, Or Background): MCV < 80 false Neural Tube Defect (Meningomyelocele, Spina Bifi da, Or Anencephaly) false Congenital Heart Defect false Down Syndrome false Patricio-Sachs (eg, Islam, Cajun, Yi-Cypriot) f alse Carlos Disease false Sickle Cell Disease Or Trait () false Hemophilia Or Other Blood Disorders false Muscular Dystrophy false Cystic Fibrosis false Knott's Chorea false Intellectual Disability/Autism false If Yes, Was Person Tested For Fragile X? false Other Inherited Genetic Or Chromosomal Disorder false Maternal Metabolic Disorder (eg, Type 1 Diabetes , PKU) false Patient Or Baby's Father Had A Child With Defects Not Listed Above false Recurrent Loss, Or A Stillbirth false Medications (including Suppl ements, Vitamins, Herbs, OTC Drugs), Illicit/Recreational Drugs, Alcohol false If Yes, Agent(s) And Strength/Dosage false Any Other Genetic History false Live With Someone With TB Or Exposed To TB false Patient Or Partner Has History Of Genital Herpes false Rash Or Viral Illness Since Last Menstrual Perio d false History Of STD, Gonorrhea, Chlamydia, HPV, Syphi lis false Other Infection History false History of HIV false History of Hepatitis false Prior GBS-infected child false Hemoglobinopathy Or Carrier false Other Structural Defect false Recent Travel History Outside of Country false Delivery Information Delivery Date Delivery Type Labor Anesthesia Weeks Gestation Incision Type Labor Labor Length Hrs Delivered By Post Complications Tubal Sterilization Discharge Date Comments 2 Induce d Regional-Ep idural 39 false Svetlana Medrano CNM SGA Discharge Information Feeding Method Contraceptive Method Maternal HG B and HCT Levels Ob Episode Information Episode Created Date Number of Fetuses Patient Bloodtype Patient rh Status Prepregnancy Weight lbs Domestic Partner Domestic Partner Phone Father Name Demolition Specialist Status 03/26/20 24 1 CLOSED Fetus Data First Name Last Name Admitted to NICU Weight (g) Sex Living Outcome Pediatric Complications Fetus ID Race Codes Race Delivery Type , [place]ane ous [id number] Santana Calculation Initial Santana Date Initial Exam Date Initial Exam Provider Initial Ultrasound Date Last Menstrual Period Date Ultra Sound Weeks Gestation 0 Eighteen To Twenty Week Santana Update Ultra Sound Date Fundal Height At Umbil Quickening Date Ultra Sound Latest Weeks Gestation Final Santana Confirmed By Final Santana Confirmed Date Final Santana Date Ultra Sound Latest Days Gestation 0 0 Menstrual History Last Menstrual Date Menses Monthly On Bcp Conception Prior Menses Frequency Hcg Plus Date Menarche Onset Age Delivery Information Delivery Date Delivery Type Labor Anesthesia Weeks Gestation Incision Type Labor Labor Length Hrs Delivered By Post Complications Tubal Sterilization Discharge Date Comments 0 Discharge Information Feeding Method Contraceptive Method Maternal HG B and HCT Levels Ob Episode Information Episode Created Date Number of Fetuses Patient Bloodtype Patient rh Status Prepregnancy Weight lbs Domestic Partner Domestic Partner Phone Father Name Demolition Specialist Status 03/26/20 24 1 CLOSED Fetus Data First Name Last Name Admitted to NICU Weight (g) Sex Living Outcome Pediatric Complications Fetus ID Race Codes Race Delivery Type , [place]ane o[place] [id number] Santana Calculation Initial Santana Date Initial Exam Date Initial Exam Provider Initial Ultrasound Date Last Menstrual Period Date Ultra Sound Weeks Gestation 0 Eighteen To Twenty Week Santana Update Ultra Sound Date Fundal Height At Umbil Quickening Date Ultra Sound Latest Weeks Gestation Final Santana Confirmed By Final Santana Confirmed Date Final Santana Date Ultra Sound Latest Days Gestation 0 0 Menstrual History Last Menstrual Date Menses Monthly On Bcp Conception Prior Menses Frequency Hcg Plus Date Menarche Onset Age Delivery Information Delivery Date Delivery Type Labor Anesthesia Weeks Gestation Incision Type Labor Labor Length Hrs Delivered By Post Complications Tubal Sterilization Discharge Date Comments 1 Discharge Information Feeding Method Contraceptive Method Maternal HG B and HCT Levels
--- OUTSIDE RECORDS SUMMARY | 2024-09-24 11:38 | XMS_ITS | Clinical Summary ---
Author Organization [facility] Address [address] [place] [address] Care Team Providers Care Senior Accounting Specialist Name Role Phone Nayely Villagran MD Primary Care Provider [phone] Source Comments [facility],non-owned Affiliates and Associated Physician Practices is amultiple site organization consisting of ambulatory clinics and hospital sitesin [place], [place], [place] and [place]. This disclosure is being madepursuant to the Care Everywhere program and may not contain all information available regarding this patient. Last updated 18.[facility] Allergies No known active allergies Medications * Be aware that medications may not be up to date on this document. Alwaysverify current medications with the patient. Medication Sig Dispensed Refills Start Date End Date Status famotidine (PEPCID) 20 MG tablet Take 20 mg by mouth 2 times daily. Active oxybutynin (DITROPAN) 5 MG tablet Take 1 Tab by mouth 3 times daily. 2 labeled bottles pls. 90 Tab 5 10/05/2014 Active Active Problems Problem Noted Date Diagnosed Date Obesity, Class II, BMI 35-39.9 04/04/2022 Sleep disorder 08/27/2014 Abnormal weight gain 08/27/2014 Voiding dysfunction 08/27/2014 Social History Tobacco Use Types Packs/Day Years Used Date Smoking Tobacco: Never Alcohol Use Standard Drinks/Week Comments Not Asked 0 (1 standard drink = 0.6 oz pur e alcohol) Sex and Gender Information Value Date Recorded Sex Assigned at Not on file Gender Identity Not on file Sexual Orientation Not on file Last Filed Vital Signs Vital Sign Reading Time Taken Comments Blood Pressure 112/66 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 75 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 Temperature - - Respiratory Rate - - Oxygen Saturation - - Inhaled Oxygen Concentration - - Weight 88 kg (193 lb 14.4 oz) 08/27/2014 11:23 A M CDT Height 169.1 cm (5' 6.58 ) 08/27/2014 11:23 AM C DT Body Mass Index 30.76 08/27/2014 11:23 AM CDT Plan of Treatment Health Maintenance Due Date Last Done Comments PAP SMEAR 1997 HEPATITIS C SCREENING 08/30/2015 DTAP/TDAP/TD VACCINES (1 - Tdap) 2016 HEPATITIS B VACCINE (1 of 3 - 19+ 3-dose series) 2016 COVID-19 VACCINE (1 - 2023-2 5 season) 2024 DEPRESSION SCREENING 06/18/2024 INFLUENZA VACCINE (Season Ended) 2025 ZOSTER VACCINE (1 of 2) 09/04/2047 HIV SCREENING Completed 03/31/2022 HIB VACCINE Aged Out No longer eligi ble based on patient's age to complete this topic HPV VACCINE Aged Out No longer eligi ble based on patient's age to complete this topic MENINGOCOCCAL (Group B) VACC INE SHARED DECISION-MAKING Aged Out No longer eligibl e based on patient's age to complete this topic MENINGOCOCCAL GROUPS A/C/Y/W VACCINE Aged Out No longer eligible b ased on patient's age to complete this topic PNEUMOCOCCAL VACCINE Aged Out No long er eligible based on patient's age to complete this topic Care Teams Senior Accounting Specialist Relationship Specialty Start Date End Date Nayely Villagran MD [id number] [place] [address] PCP - General Pediatrics 04/22/14
--- OUTSIDE RECORDS SUMMARY | 2024-09-24 11:38 | XMS_ITS | Clinical Summary ---
Author Organization [facility] Address [address] [place] [address] Phone Care Team Providers Care Research Professional Name Role Phone Provider, None Primary Care Provider Unavailabl e Allergies No known active allergies Medications ondansetron (ZOFRAN) 4 MG Tablet Take 1-2 Tabs by mouth every 8 hours as needed for Nausea. 10 Tab 7 Active azithromycin (ZITHROMAX) 250 MG Tablet 2 tab(s) daily for 1 day, then 1 tab(s) daily for days 2-5. 6 Tab 7 Active albuterol (PROVENTIL HFA, VENTOLIN HFA) 108 (90 Base) MCG/ACT Aerosol Solution take 2 Puffs by inhalation every 6 hours as needed for Wheezing. 1 Inhaler 7 Active ketorolac (TORADOL) 10 MG Tablet Take 1 Tab by mouth every 6 hours as needed for Pain. 20 Tab 8 Active Social History Tobacco Use Types Packs/Day Years Used Date Smoking Tobacco: Never Alcohol Use Standard Drinks/Week Comments No 0 (1 standard drink = 0.6 oz pur e alcohol) Estimated Date of Delivery Comme nts Yes 09/17/2024 Sex and Gender Information Value Date Recorded Sex Assigned at Not on file Legal Sex Female 9:46 PM CDT Gender Identity Not on file Sexual Orientation Not on file Last Filed Vital Signs Vital Sign Reading Time Taken Comments Blood Pressure 122/78 02/06/2024 12:27 AM CDT Pulse 74 02/05/2024 11:28 PM CDT Temperature 37.2 C (99 F) 02/05/2024 11:28 PM CDT Respiratory Rate 18 02/05/2024 11:28 PM CDT Oxygen Saturation 100% 02/05/2024 11:28 PM CDT Inhaled Oxygen Concentration - - Weight 100.7 kg (222 lb) 02/05/2024 11:28 PM CDT Height 170.2 cm (5' 7 ) 02/05/2024 11:28 PM CDT Body Mass Index 34.77 02/05/2024 11:28 PM CDT Plan of Treatment Health Maintenance Due Date Last Done Comments Hepatitis B Immunization (1 of 3 - 19+ 3-dose series) 2016 Pap Smear 2018 Hepatitis C Virus (HCV) Screening 10/17/2022 022 Influenza Immunization (#1) 2024 SARS-COV-2 Immunization ( season) 2024 DTaP/Tdap/Td Immunization Discontinued 10/30/2020 TdaP Immunization Completed 10/30/2020 Meningococcal Immunization (ACWY) Aged Out No longer eligible based on patient's age to complete this topic Pneumococcal Immunization Combined Aged Out No longer eligible b ased on patient's age to complete this topic Respiratory Syncytial Virus (RSV) Immunization (Adult) (No Doses Required) Completed Rotavirus Immunization Aged Out No lo nger eligible based on patient's age to complete this topic Insurance MEDICAID [place] Care Teams Research Professional Relationship Specialty Start Date End Date Provider, None [place] PCP - General 02/05/24
--- OUTSIDE RECORDS SUMMARY | 2024-09-24 11:38 | XMS_ITS | Data Portability ---
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 Plan of Treatment Reminders Order Date Submit Date Provider Last Modified By Organization Details Last Modified Time Details Appointments None recorded. Lab culture, urine 2018 019 [place] [facility], [address], [place], [address], 9 16:13:46 pap, IG + HPV, cervical 2018 019 [place] [facility], [address], [place], [address], 9 14:14:05 test, urine 2018 019 favio In-Office Order, Internal Use Only DO Not Attach Compendium DO Not Attach Compendium, Do Not Delete/merge, [id number] 9 14:31:53 urinalysi s, dipstick 2018 019 favio In-Office Order, Internal Use Only DO Not Attach Compendium DO Not Attach Compendium, Do Not Delete/merge, [id number] 9 14:31:53 bacterial vaginosis + vaginitis panel, vaginal - Z11.3, Z20.0 2018 019 [place] [facility], [address], [address], [place], [address], 9 20:09:05 HSV (1+2) DNA, qual, PCR, unspecifi ed specimen - Z11.3, Z20.2 2018 019 [facility], [address], [address], [place], [address], 9 20:09:05 culture, vaginal/r ectal, streptoco ccus group B - Z11.3, Z20.2 2018 019 [facility], [address], [address], [place], [address], 9 20:09:06 CBC w/ auto diff 2018 019 [facility], [address], [place], [address], 9 13:59:19 unlisted lab - CMP14+CBC /D/plt+TS [id number] 2018 019 [facility], [address], [place], [address], 9 06:36:07 lipid panel, serum 2018 019 [facility], [address], [place], [address], 9 06:36:08 culture, urine 2017 [address] [facility], [address], [place], [address], 8 16:08:09 urinalysi s, dipstick 2017 018 israel In-Office Order, Internal Use Only DO Not Attach Compendium DO Not Attach Compendium, Do Not Delete/merge, [id number] 8 16:07:10 test, urine 2017 018 [email or web address] In-Office Order, Internal Use Only DO Not Attach Compendium DO Not Attach Compendium, Do Not Delete/merge, [id number] 8 16:07:10 urinalysi s, dipstick 2017 018 [email or web address] In-Office Order, Internal Use Only DO Not Attach Compendium DO Not Attach Compendium, Do Not Delete/merge, [id number] 8 16:49:22 culture, urine 2017 018 [place] [facility], [address] [facility], [place], [address], 8 20:11:00 test, urine 2017 018 favio In-Office Order, Internal Use Only DO Not Attach Compendium DO Not Attach Compendium, Do Not Delete/merge, [id number] 8 13:49:54 Referral allergy referral - Please call patient to schedule appt. Thank you 2018 019 [email or web address] [facility], [address] [facility], [place], [address], 9 14:25:06 neurosurg steph referral - Please call patient to schedule appt. Thank you 2017 018 elton Marie MD, [address] [place], [address], 8 09:34:13 Procedures None recorded. Surgeries None recorded. Imaging holter monitor - 48 hour monitor 2018 [facility] (Cardiology [facility] Em[facility]), [address], [place], [address], 9 14:01:26 electroen cephalogr am 2018 019 [facility] (Cardiology [facility]), [address], [place], [address], 9 13:59:19 CT, brain, w/o contrast 2018 019 [facility] (Imaging), [address], [place], [address], 9 13:59:19 Medication Orders nitrofura ntoin monohydra te/macroc rystals 100 mg capsule 2018 019 [id number], [address] , [place], [place], [id number], 9 14:07:05 Nexplanon 68 mg subdermal implant 2018 019 [email or web address] Not available 9 18:09:21 Macrobid 100 mg capsule 2017 018 [facility] [facility] #[id number], [address] , [place], [place], [id number], 9 12:46:06 ibuprofen 800 mg tablet 2017 018 INTERFACE [id number], [address] [place], [place], [id number], 8 15:49:15 ibuprofen 800 mg tablet 2017 018 INTERFACE [facility] #85588, [address] [place], [place], [id number], 8 16:50:37 Macrobid 100 mg capsule 2017 018 [facility], [address] [place], [place], [id number], 9 12:46:06 Patient TargetsNo targets recorded. Patient Instructions Encounter Date Encounter Id Patient Instructions Last Modified By Organization Details Last Modified Time 03/04/2018 [id number] polycystic ovary syndrome: care instructions [email or web address] Not available 03/04/2018 16:56:28 05/06/2018 [id number] Urinary Tract Infection (UTI) in Women: Care Instructions [email or web address] Not available 05/06/2018 16:07:10 polycystic ovary syndrome: care instructions [email or web address] Not available 05/06/2018 15:49:10 10/25/2018 [id number] seasonal allergi es: care instructions [facility] Not available 10/25/2018 13:16:12 fainting: care instructions sieh Not available 10/25/2018 13:16:12 lightheadedness or faintness: care instructions si Not available 10/25/2018 13:16:12 Reason for Referral Neurosurgery Referral for Ac maris low back pain Please call patient to schedule appt. Thank you Referring Physician: Geoffrey Galo, Internal Medicine, Encounter Date: 04/15/2018 Allergy Referral for Seasona l allergy Please call patient to schedule appt. Thank you Referring Physician: Geoffrey Galo Internal Medicine, Encounter Date: 10/25/2018 Results Created Date Observation Date Name Description Value Unit Range Abnormal Flag Note LastModifiedBy Organization Detail LastModifiedTime 11/27/1911/26/2018 urina lysis , dipst ick Leukocytes Negati ve Not Available In-Office Order Internal Use Only DO Not Attach Compendium DO Not Attach Compendium, Do Not Delete/merge, [id number] 11/26/2018 13:13:30 11/27/1911/26/2018 urina lysis , dipst ick Nitrite positi ve Not Available In-Office Order Internal Use Only DO Not Attach Compendium DO Not Attach Compendium, Do Not Delete/merge, [id number] 11/26/2018 13:13:30 11/27/1911/26/2018 urina lysis , dipst ick Urobilinogen 1 Not Available In-Of fice Order Internal Use Only DO Not Attach Compendium DO Not Attach Compendium, Do Not Delete/merge, [id number] 11/26/2018 13:13:30 11/27/1911/26/2018 urina lysis , dipst ick Protein Negati ve Not Available In-Office Order Internal Use Only DO Not Attach Compendium DO Not Attach Compendium, Do Not Delete/merge, 11/26/2018 13:13:30 11/27/1911/26/2018 urina lysis , dipst ick pH 7.0 Not Available In-Office Order Internal Use Only DO Not Attach Compendium DO Not Attach Compendium, Do Not Delete/merge, 11/26/2018 13:13:30 11/27/1911/26/2018 urina lysis , dipst ick Blood Negati ve Not Available In-Office Order Internal Use Only DO Not Attach Compendium DO Not Attach Compendium, Do Not Delete/merge, 11/26/2018 13:13:30 11/27/19 19 11/26/2018 urina lysis , dipst ick Specific Union 1.020 Not Available In-Off ice Order Internal Use Only DO Not Attach Compendium DO Not Attach Compendium, Do Not Delete/merge, 11/26/2018 13:13:30 11/27/19 19 11/26/2018 urina lysis , dipst ick Ketone Negati ve Not Available In-Office Order Internal Use Only DO Not Attach Compendium DO Not Attach Compendium, Do Not Delete/merge, 11/26/2018 13:13:30 11/27/1911/26/2018 urina lysis , dipst ick Bilirubin Negati ve Not Available In-Office Order Internal Use Only DO Not Attach Compendium DO Not Attach Compendium, Do Not Delete/merge, 11/26/2018 13:13:30 11/27/19 19 11/26/2018 urina lysis , dipst ick Glucose Negati ve Not Available In-Office Order Internal Use Only DO Not Attach Compendium DO Not Attach Compendium, Do Not Delete/merge, 11/26/2018 13:13:30 11/27/1911/26/2018 pregn chelly test, urine HCG negati ve Not Available In-Office Order Internal Use Only DO Not Attach Compendium DO Not Attach Compendium, Do Not Delete/merge, [id number] 11/26/2018 13:13:29 05/06/20 18 05/06/2018 urina lysis , dipst ick Leukocytes Trace Not Available In-Offi ce Order Internal Use Only DO Not Attach Compendium DO Not Attach Compendium, Do Not Delete/merge, [id number] 05/06/2018 15:59:39 05/06/20 18 05/06/2018 urina lysis , dipst ick Nitrite positi ve Not Available In-Office Order Internal Use Only DO Not Attach Compendium DO Not Attach Compendium, Do Not Delete/merge, [id number] 05/06/2018 15:59:39 05/06/20 18 05/06/2018 urina lysis , dipst ick Urobilinogen .2 Not Available In-Of fice Order Internal Use Only DO Not Attach Compendium DO Not Attach Compendium, Do Not Delete/merge, [id number] 05/06/2018 15:59:39 05/06/20 18 05/06/2018 urina lysis , dipst ick Protein Negati ve Not Available In-Office Order Internal Use Only DO Not Attach Compendium DO Not Attach Compendium, Do Not Delete/merge, [id number] 05/06/2018 15:59:39 05/06/20 18 05/06/2018 urina lysis , dipst ick pH 5.5 Not Available In-Office Order Internal Use Only DO Not Attach Compendium DO Not Attach Compendium, Do Not Delete/merge, [id number] 05/06/2018 15:59:39 05/06/20 18 05/06/2018 urina lysis , dipst ick Blood Negati ve Not Available In-Office Order Internal Use Only DO Not Attach Compendium DO Not Attach Compendium, Do Not Delete/merge, [id number] 05/06/2018 15:59:39 05/06/20 18 05/06/2018 urina lysis , dipst ick Specific Union 1.025 Not Available In-Off ice Order Internal Use Only DO Not Attach Compendium DO Not Attach Compendium, Do Not Delete/merge, [id number] 05/06/2018 15:59:39 05/06/20 18 05/06/2018 urina lysis , dipst ick Ketone Negati ve Not Available In-Office Order Internal Use Only DO Not Attach Compendium DO Not Attach Compendium, Do Not Delete/merge, [id number] 05/06/2018 15:59:39 05/06/20 18 05/06/2018 urina lysis , dipst ick Bilirubin Negati ve Not Available In-Office Order Internal Use Only DO Not Attach Compendium DO Not Attach Compendium, Do Not Delete/merge, [id number] 05/06/2018 15:59:39 05/06/20 18 05/06/2018 urina lysis , dipst ick Glucose Negati ve Not Available In-Office Order Internal Use Only DO Not Attach Compendium DO Not Attach Compendium, Do Not Delete/merge, [id number] 05/06/2018 15:59:39 05/06/20 18 05/06/2018 urina lysis , dipst ick Appearance Slight ly Cloudy Not Available In-Office Order Internal Use Only DO Not Attach Compendium DO Not Attach Compendium, Do Not Delete/merge, [id number] 05/06/2018 15:59:39 05/06/20 18 05/06/2018 urina lysis , dipst ick Color Dark Yellow Not Available In-Office Order Internal Use Only DO Not Attach Compendium DO Not Attach Compendium, Do Not Delete/merge, [id number] 05/06/2018 15:59:39 05/06/20 18 05/06/2018 pregn chelly test, urine HCG negati ve Not Available In-Office Order Internal Use Only DO Not Attach Compendium DO Not Attach Compendium, Do Not Delete/merge, [id number] 05/06/2018 15:59:18 03/04/20 18 03/04/2018 pregn chelly test, urine HCG negati ve Not Available In-Office Order Internal Use Only DO Not Attach Compendium DO Not Attach Compendium, Do Not Delete/merge, [id number] 03/04/2018 16:31:45 03/04/20 18 03/04/2018 urina lysis , dipst ick Leukocytes Trace Not Available In-Offi ce Order Internal Use Only DO Not Attach Compendium DO Not Attach Compendium, Do Not Delete/merge, [id number] 03/04/2018 16:31:43 03/04/20 18 03/04/2018 urina lysis , dipst ick Nitrite positi ve Not Available In-Office Order Internal Use Only DO Not Attach Compendium DO Not Attach Compendium, Do Not Delete/merge, 03/04/2018 16:31:43 03/04/20 18 03/04/2018 urina lysis , dipst ick Urobilinogen 4 Not Available In-Of fice Order Internal Use Only DO Not Attach Compendium DO Not Attach Compendium, Do Not Delete/merge, 03/04/2018 16:31:43 03/04/20 18 03/04/2018 urina lysis , dipst ick Protein 30 Not Available In-Office Order Internal Use Only DO Not Attach Compendium DO Not Attach Compendium, Do Not Delete/merge, 03/04/2018 16:31:43 03/04/20 18 03/04/2018 urina lysis , dipst ick pH 7.0 Not Available In-Office Order Internal Use Only DO Not Attach Compendium DO Not Attach Compendium, Do Not Delete/merge, 03/04/2018 16:31:43 03/04/20 18 03/04/2018 urina lysis , dipst ick Blood Negati ve Not Available In-Office Order Internal Use Only DO Not Attach Compendium DO Not Attach Compendium, Do Not Delete/merge, 03/04/2018 16:31:43 03/04/20 18 03/04/2018 urina lysis , dipst ick Specific Union 1.025 Not Available In-Off ice Order Internal Use Only DO Not Attach Compendium DO Not Attach Compendium, Do Not Delete/merge, 03/04/2018 16:31:43 03/04/20 18 03/04/2018 urina lysis , dipst ick Ketone Trace Not Available In-Office Order Internal Use Only DO Not Attach Compendium DO Not Attach Compendium, Do Not Delete/merge, 03/04/2018 16:31:43 03/04/20 18 03/04/2018 urina lysis , dipst ick Bilirubin Small Not Available In-Offic e Order Internal Use Only DO Not Attach Compendium DO Not Attach Compendium, Do Not Delete/merge, 03/04/2018 16:31:43 03/04/20 18 03/04/2018 urina lysis , dipst ick Glucose Negati ve Not Available In-Office Order Internal Use Only DO Not Attach Compendium DO Not Attach Compendium, Do Not Delete/merge, [id number] 03/04/2018 16:31:43 03/04/20 18 03/07/2018 cultu re, urine urine culture, routine FINAL REPORT abnormal Not Available [facility] ([facility]) [address], [place], [address], 03/07/2018 20:11:00 03/04/20 18 03/07/2018 cultu re, urine result 1 ESCHER ICHIA COLI abnormal Great er than 100,0 00 colon y formi ng units per mL Cefaz lourdes <=4 ug/mL Cefaz lourdes with an ALTA <=16 predi cts susce ptibi lity to the oral agent s cefac barak, cefdi marty, cefpo doxim e, cefpr ozil, cefur oxime , cepha lexin , and lorac arbef when used for thera py of uncom plica graeme urina ry tract infec tions due to E. coli, Klebs iella pneum oniae , and Prote us mirab ilis. Not Available [facility] ([facility]) [address], [place], [address], 03/07/2018 20:11:00 03/04/20 18 03/07/2018 cultu re, urine antimicrobia l susceptibili ty COMMEN T S = Susce ptibl e; I = Inter media te; R = Resis tant P = Posit dheeraj; N = Negat dheeraj MICS are expre ssed in micro grams per mL Antib iotic RSLT# 1 RSLT# 2 RSLT# 3 RSLT# 4 Amoxi cilli n/Cla vulan ic Acid S Ampic illin R Cefep andreia S Ceftr iaxon e S Cefur oxime S Cipro floxa angie S Ertap enem S Genta micin S Imipe nem S Levof loxac in S Merop enem S Nitro furan toin S Piper acill in/Ta zobac scott S Tetra cycli ne S Tobra mycin S Trime thopr im/Daniel lfa R Not Available [facility] ([facility]) [address], [place], [address], 03/07/2018 20:11:00 05/06/20 18 05/09/2018 cultu re, urine urine culture, routine FINAL REPORT abnormal Not Available [facility] ([facility]) [address], [place], [address], 05/09/2018 16:08:09 05/06/20 18 05/09/2018 cultu re, urine result 1 ESCHER ICHIA COLI abnormal Great er than 100,0 00 colon y formi ng units per mL Cefaz lourdes <=4 ug/mL Cefaz lourdes with an ALTA <=16 predi cts susce ptibi lity to the oral agent s cefac barak, cefdi marty, cefpo doxim e, cefpr ozil, cefur oxime , cepha lexin , and lorac arbef when used for thera py of uncom plica graeme urina ry tract infec tions due to E. coli, Klebs iella pneum oniae , and Prote us mirab ilis. Not Available [facility] ([facility]) [address], [place], [address], 05/09/2018 16:08:09 05/06/20 18 05/09/2018 cultu re, urine antimicrobia l susceptibili ty COMMEN T S = Susce ptibl e; I = Inter media te; R = Resis tant P = Posit dheeraj; N = Negat dheeraj MICS are expre ssed in micro grams per mL Antib iotic RSLT# 1 RSLT# 2 RSLT# 3 RSLT# 4 Amoxi cilli n/Cla vulan ic Acid S Ampic illin R Cefep andreia S Ceftr iaxon e S Cefur oxime S Cipro floxa angie S Ertap enem S Genta micin S Imipe nem S Levof loxac in S Merop enem S Nitro furan toin S Piper acill in/Ta zobac scott S Tetra cycli ne S Tobra mycin S Trime thopr im/Daniel lfa R Not Available [facility] ([facility]) [address], [place], [address], 05/09/2018 16:08:09 05/06/20 18 05/06/2018 plemaria ines e note please note COMMEN T The date and/o r time of colle ction was not indic ated on the requi sitio n as requi red by state and [place] law. The date of recei pt of the speci men was used as the colle ction date if not suppl ied. Not Available [facility] ([facility]) [address], [place], [address], 05/09/2018 16:08:10 05/06/20 18 05/06/2018 one speci men ident ifier one specimen identifier COMMEN T The speci men recei mary kay inclu ded only one patie nt ident ifier on the prima ry colle ction conta iner. Our labor atory accre ditin g agenc y state s All prima ry speci men conta iners must be label ed with 2 ident ifier s at the time of colle ction . Not Available [facility] ([facility]) [address], [place], [address], 05/09/2018 16:08:10 05/06/20 18 05/09/2018 cultu re, urine urine culture, routine FINAL REPORT abnormal Not Available [facility] ([facility]) [address], [place], [address], 05/13/2018 11:35:26 05/06/20 18 05/09/2018 cultu re, urine result 1 ESCHER ICHIA COLI abnormal Great er than 100,0 00 colon y formi ng units per mL Cefaz lourdes <=4 ug/mL Cefaz lourdes with an ALTA <=16 predi cts susce ptibi lity to the oral agent s cefac barak, cefdi marty, cefpo doxim e, cefpr ozil, cefur oxime , cepha lexin , and lorac arbef when used for thera py of uncom plica graeme urina ry tract infec tions due to E. coli, Klebs iella pneum oniae , and Prote us mirab ilis. Not Available [facility] ([facility]) [address], [place], [address], 05/13/2018 11:35:26 05/06/20 18 05/09/2018 cultu re, urine antimicrobia l susceptibili ty COMMEN T S = Susce ptibl e; I = Inter media te; R = Resis tant P = Posit dheeraj; N = Negat dheeraj MICS are expre ssed in micro grams per mL Antib iotic RSLT# 1 RSLT# 2 RSLT# 3 RSLT# 4 Amoxi cilli n/Cla vulan ic Acid S Ampic illin R Cefep andreia S Ceftr iaxon e S Cefur oxime S Cipro floxa angie S Ertap enem S Genta micin S Imipe nem S Levof loxac in S Merop enem S Nitro furan toin S Piper acill in/Ta zobac scott S Tetra cycli ne S Tobra mycin S Trime thopr im/Daniel lfa R Not Available [facility] ([facility]) [address] [facility] [address], [place], [address], 05/13/2018 11:35:26 05/06/20 18 05/06/2018 one speci men ident ifier one specimen identifier COMMEN T The speci men recei mary kay inclu ded only one patie nt ident ifier on the prima ry colle ction conta iner. Our labor atory accre ditin g agenc y state s All prima ry speci men conta iners must be label ed with 2 ident ifier s at the time of colle ction . Not Available [facility] ([facility]) [address] [facility], [place], [address], 05/13/2018 11:35:27 10/26/19 19 10/26/2018 CMP14 +CBC/ D/plt +TSH- 42207 7-U glucose 82 mg/dL 65-99 Not Available [facility] ([facility]) [address] [facility] [facility], [place], [address], 10/26/2018 06:36:07 10/26/19 19 10/26/2018 CMP14 +CBC/ D/plt +TSH- 46990 7-U BUN 8 mg/dL 6-20 Not Available [facility] ([facility]) [address] [facility] [address], [place], [address], 10/26/2018 06:36:07 10/26/19 19 10/26/2018 CMP14 +CBC/ D/plt +TSH- 57524 7-U creatinine 0.82 mg/dL 0.57-1 .00 Not Available [facility] ([facility]) [address] [facility] [address], [place], [address], 10/26/2018 06:36:07 10/26/19 19 10/26/2018 CMP14 +CBC/ D/plt +TSH- 97331 7-U eGFR if nonafricn AM 103 mL/mi n/1.7 3 >59 Not Available [facility] ([facility]) [address] [place], [address], 10/26/2018 06:36:07 10/26/1910/26/2018 CMP14 +CBC/ D/plt +TSH- 13689 7-U eGFR if africn AM 118 mL/mi n/1.7 3 >59 Not Available [facility] ([facility]) [address] [place], [address], 10/26/2018 06:36:07 10/26/1910/26/2018 CMP14 +CBC/ D/plt +TSH- 20487 7-U BUN/creatini ne ratio 10 - Not Available [facility] ([facility]) [address] [place] [address], [address], 10/26/2018 06:36:07 10/26/1910/26/2018 CMP14 +CBC/ D/plt +TSH- 51336 7-U sodium 142 mmol/ L 134-14 4 Not Available [facility] ([facility]) [address] [place], [address], 10/26/2018 06:36:07 10/26/19 19 10/26/2018 CMP14 +CBC/ D/plt +TSH- 15436 7-U potassium 4.7 mmol/ L 3.5-5. 2 Not Available [facility] ([facility]) [address] [place], [address], 10/26/2018 06:36:07 10/26/1910/26/2018 CMP14 +CBC/ D/plt +TSH- 83298 7-U chloride 104 mmol/ L 96-106 Not Available [facility] ([facility]) [address] [place], [address], 10/26/2018 06:36:07 10/26/19 19 10/26/2018 CMP14 +CBC/ D/plt +TSH- 36942 7-U carbon dioxide, total 24 mmol/ L 20-29 Not Available [facility] ([facility]) [address] [place], [address], 10/26/2018 06:36:07 10/26/1910/26/2018 CMP14 +CBC/ D/plt +TSH- 34365 7-U calcium 9.5 mg/dL 8.7-10 .2 Not Available [facility] ([facility]) [address] [place], [address], 10/26/2018 06:36:07 10/26/1910/26/2018 CMP14 +CBC/ D/plt +TSH- 17845 7-U protein, total 6.8 g/dL 6.0-8. 5 Not Available [facility] ([facility]) [address] [place], [address], 10/26/2018 06:36:07 10/26/1910/26/2018 CMP14 +CBC/ D/plt +TSH- 32959 7-U albumin 4.2 g/dL 3.5-5. 5 Not Available [facility] ([facility]) [address] [place], [address], 10/26/2018 06:36:07 10/26/1910/26/2018 CMP14 +CBC/ D/plt +TSH- 51893 7-U globulin, total 2.6 g/dL 1.5-4. 5 Not Available [facility] ([facility]) [address] [facility] [address], [place], [address], 10/26/2018 06:36:07 10/26/1910/26/2018 CMP14 +CBC/ D/plt +TSH- 68178 7-U A/G ratio 1.6 1.2-2. 2 Not Available [facility] ([facility]) [address] [facility] [address], [place], [address], 10/26/2018 06:36:07 10/26/1910/26/2018 CMP14 +CBC/ D/plt +TSH- 39998 7-U bilirubin, total 0.3 mg/dL 0.0-1. 2 Not Available [facility] ([facility]) [address] [place], [address], 10/26/2018 06:36:07 10/26/1910/26/2018 CMP14 +CBC/ D/plt +TSH- 18680 7-U alkaline phosphatase 66 IU/L 39-117 Not Available [facility] ([facility]) [address] [place], [address], 10/26/2018 06:36:07 10/26/1910/26/2018 CMP14 +CBC/ D/plt +TSH- 89520 7-U AST (SGOT) 27 IU/L 0-40 Not Available [facility] ([facility]) [address] [place], [address], 10/26/2018 06:36:07 10/26/19 19 10/26/2018 CMP14 +CBC/ D/plt +TSH- 83057 7-U ALT (SGPT) 36 IU/L 0-32 above high normal Not Available [facility] ([facility]) [address] [place], [address], 10/26/2018 06:36:07 10/26/1910/26/2018 CMP14 +CBC/ D/plt +TSH- 05380 7-U TSH 1.030 uIU/m L 0.450- 4.500 Not Available [facility] ([facility]) [address] [place], [address], 10/26/2018 06:36:07 10/26/19 19 10/26/2018 CMP14 +CBC/ D/plt +TSH- 08584 7-U WBC 7.4 x10e3 /uL 3.4-10 .8 Not Available [facility] ([facility]) [address] [place], [address], 10/26/2018 06:36:07 10/26/1910/26/2018 CMP14 +CBC/ D/plt +TSH- 07337 7-U RBC 5.32 x10e6 /uL 3.77-5 .28 above high normal Not Available [facility] ([facility]) [address] [place], [address], 10/26/2018 06:36:07 10/26/1910/26/2018 CMP14 +CBC/ D/plt +TSH- 28684 7-U hemoglobin 14.6 g/dL 11.1-1 5.9 Not Available [facility] ([facility]) [address] [place], [address], 10/26/2018 06:36:07 10/26/1910/26/2018 CMP14 +CBC/ D/plt +TSH- 01717 7-U hematocrit 43.6 % 34.0-4 6.6 Not Available [facility] ([facility] [facility] [address] [place], [address], 10/26/2018 06:36:07 10/26/1910/26/2018 CMP14 +CBC/ D/plt +TSH- 77286 7-U MCV 82 fL 79-97 Not Available [facility] ([facility]) [address] [facility], [place], [address], 10/26/2018 06:36:07 10/26/1910/26/2018 CMP14 +CBC/ D/plt +TSH- 05105 7-U MCH 27.4 pg 26.6-3 3.0 Not Available [facility] ([facility]) [address] [facility], [place], [address], 10/26/2018 06:36:07 10/26/19 19 10/26/2018 CMP14 +CBC/ D/plt +TSH- 29990 7-U MCHC 33.5 g/dL 31.5-3 5.7 Not Available [facility] ([facility]) [address] [facility], [place], [address], 10/26/2018 06:36:07 10/26/1910/26/2018 CMP14 +CBC/ D/plt +TSH- 72233 7-U RDW 13.6 % 12.3-1 5.4 Not Available [facility] ([facility]) [address] [facility], [place], [address], 10/26/2018 06:36:07 10/26/1910/26/2018 CMP14 +CBC/ D/plt +TSH- 24589 7-U platelets 278 x10e3 /uL 150-37 9 Eff ectiv e November 04, 2018 the refer ence inter jocelyn for Plate lets will be villasenor ing to: 0 - 7 d 140 - 396 x10E3 /uL 8 - 30 d 139 - 531 x10E3 /uL 31 d - 999 yrs 150 - 450 x10E3 /uL Not Available [facility] ([facility]) [address] [facility], [place], [address], 10/26/2018 06:36:07 10/26/19 19 10/26/2018 CMP14 +CBC/ D/plt +TSH- 17079 7-U neutrophils 60 % not estab. Not Available [facility] ([facility]) [address] [facility], [place], [address], 10/26/2018 06:36:07 10/26/1910/26/2018 CMP14 +CBC/ D/plt +TSH- 67108 7-U lymphs 29 % not estab. Not Available [facility] ([facility]) [address] [facility], [place], [address], 10/26/2018 06:36:07 10/26/19 19 10/26/2018 CMP14 +CBC/ D/plt +TSH- 09052 7-U monocytes 8 % not estab. Not Available [facility] ([facility]) [address] [facility], [place], [address], 10/26/2018 06:36:07 10/26/1910/26/2018 CMP14 +CBC/ D/plt +TSH- 32795 7-U eos 2 % not estab. Not Available [facility] ([facility]) [address] [facility], [place], [address], 10/26/2018 06:36:07 10/26/1910/26/2018 CMP14 +CBC/ D/plt +TSH- 03044 7-U basos 1 % not estab. 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 0 Not Available [facility] ([facility]) [address] [place], [address], 10/26/2018 06:36:07 10/26/19 19 10/26/2018 CMP14 +CBC/ D/plt +TSH- 64118 7-U lymphs (absolute) 2.2 x10e3 /uL 0.7-3. 1 Not Available [facility] ([facility]) [address] [facility], [place], [address], 10/26/2018 06:36:07 10/26/1910/26/2018 CMP14 +CBC/ D/plt +TSH- 66045 7-U monocytes(ab solute) 0.6 x10e3 /uL 0.1-0. 9 Not Available [facility] ([facility]) [address] [facility], [place], [address], 10/26/2018 06:36:07 10/26/19 19 10/26/2018 CMP14 +CBC/ D/plt +TSH- 84290 7-U eos (absolute) 0.1 x10e3 /uL 0.0-0. 4 Not Available [facility] ([facility]) [address] [place], [address], 10/26/2018 06:36:07 10/26/1910/26/2018 CMP14 +CBC/ D/plt +TSH- 44717 7-U baso (absolute) 0.1 x10e3 /uL 0.0-0. 2 Not Available [facility] ([facility]) [address] [place], [address], 10/26/2018 06:36:07 10/26/1910/26/2018 CMP14 +CBC/ D/plt +TSH- 73440 7-U immature granulocytes 0 % not estab. Not Available [facility] ([facility]) [address] [place], [address], 10/26/2018 06:36:07 10/26/19 19 10/26/2018 CMP14 +CBC/ D/plt +TSH- 45425 7-U immature grans (abs) 0.0 x10e3 /uL 0.0-0. 1 Not Available [facility] ([facility]) [address] [facility], [place], [address], 10/26/2018 06:36:07 10/26/19 19 10/26/2018 CMP14 +CBC/ D/plt +TSH- 31842 7-U NRBC SECURITY SUPPORT ANALYST Not Available [facility] ([facility]) [address] [facility], [place], [address], 10/26/2018 06:36:07 10/26/19 19 10/26/2018 CMP14 +CBC/ D/plt +TSH- 75354 7-U hematology comments: SECURITY SUPPORT ANALYST Not Available [facility] ([facility]) [address] [facility], [place], [address], 10/26/2018 06:36:07 10/26/19 19 10/26/2018 lipid panel , serum cholesterol, total 166 mg/dL 100-19 9 Not Available [facility] ([facility]) [address] [facility], [place], [address], 10/26/2018 06:36:07 10/26/19 19 10/26/2018 lipid panel , serum triglyceride s 80 mg/dL 0-149 Not Available [facility] ([facility]) [address] [facility], [place], [address], 10/26/2018 06:36:07 10/26/1910/26/2018 lipid panel , serum HDL cholesterol 51 mg/dL >39 Not Available [facility] ([facility]) [address] [facility], [place], [address], 10/26/2018 06:36:07 10/26/19 19 10/26/2018 lipid panel , serum VLDL cholesterol riya 16 mg/dL 5-40 Not Available [facility] ([facility]) [address] [facility], [place], [address], 10/26/2018 06:36:07 10/26/1910/26/2018 lipid panel , serum LDL cholesterol calc 99 mg/dL 0-99 Not Available [facility] ([facility]) [address] [facility], [place], [address], 10/26/2018 06:36:07 10/26/1910/26/2018 lipid panel , serum comment: SECURITY SUPPORT ANALYST Not Available [facility] ([facility]) [address] [facility], [place], [address], 10/26/2018 06:36:07 10/31/1910/31/2018 hepat itis B surfa ce Ab, quali tativ e, serum hep B surface Ab, qual NON REACTI VE Non React dheeraj: Incon siste nt with immun ity, less than 10 mIU/m L React dheeraj: Consi stent with immun ity, great er than 9.9 mIU/m L Angelita ified by repea t james sis Not Available [facility] ([facility]) [address] [facility], [place], [address], 10/31/2018 15:10:12 10/31/1910/31/2018 hepat itis C Ab, signa l-to- cutof f, serum or plasm a HCV Ab 0.1 s/co_ ratio 0.0-0. 9 Not Available [facility] ([facility]) [address] [facility], [place], [address], 10/31/2018 15:10:12 10/31/1910/31/2018 hepat itis C Ab, signa l-to- cutof f, serum or plasm a comment: COMMEN T Non react dheeraj HCV antib t[place] scree n is consi stent with no HCV infec tion, unles s recen t infec tion is suspe cted or other evide nce exist s to indic ate HCV infec tion. Not Available [facility] ([facility]) [address] [place], [address], 10/31/2018 15:10:12 10/31/1910/31/2018 HBsAg (hepa titis B surfa ce Ag), EIA, serum HBsAg screen NEGATI VE negati ve Not Available [facility] ([facility]) [address] [place], [address], 10/31/2018 15:10:13 11/27/19 19 11/27/2018 CT + NG + TV, DNA, urine /swab chlamydia by NEHEMIAS Negati ve negati ve Not Available [facility] ([facility]) [address] [place], [address], 11/28/2018 11:35:50 11/27/19 19 11/27/2018 CT + NG + TV, DNA, urine /swab gonococcus by NEHEMIAS Negati ve negati ve Not Available [facility] ([facility]) [address] [place], [address], 11/28/2018 11:35:50 11/27/1911/27/2018 CT + NG + TV, DNA, urine /swab trich vag by NEHEMIAS Negati ve negati ve Not Available [facility] ([facility]) [address] [place], [address], 11/28/2018 11:35:50 11/27/1911/28/2018 pap, IG + HPV, cervi riya diagnosis: Commen t NEGAT DHEERAJ FOR INTRA EPITH ELIAL YURI N OR RENE CONTRERAS . Not Available [facility] ([facility]) [address] [place], [address], 11/28/2018 14:14:05 11/27/1911/28/2018 pap, IG + HPV, cervi riya specimen adequacy: Commen t Satis facto ry for evalu ation . Endoc ervic al and/o r squam ous metap lasti c cells (endo cervi riya compo nent) are prese nt. Not Available [facility] ([facility]) [address] [place], [address], 11/28/2018 14:14:05 11/27/19 19 11/28/2018 pap, IG + HPV, cervi riya clinician provided ICD10: Pratibha koch Z01.4 19 Not Available [facility] ([facility]) [address] [place], [address], 11/28/2018 14:14:05 11/27/19 19 11/28/2018 pap, IG + HPV, cervi riya performed by: Tu Tapia (ASCP ) Not Available [facility] ([facility]) [address] [facility], [place], [address], 11/28/2018 14:14:05 11/27/19 19 11/28/2018 pap, IG + HPV, cervi riya . . Not Available [facility] ([facility]) [address] [place], [address], 11/28/2018 14:14:11/27/1911/28/2018 pap, IG + HPV, cervi riya note: Pratibha koch The Pap smear is a scree robert test desig sherrill to aid in the detec tion of annmarie ligna nt and malig nant condi tions of the uteri ne cervi x. It is not a diagn ostic proce dure and shoul d not be used as the sole means of detec ting cervi riya cance r. Both false -posi tive and false -nega tive repor ts do occur . Not Available [facility] ([facility]) [address] [place], [address], 11/28/2018 14:14:05 11/27/19 19 11/28/2018 pap, IG + HPV, cervi riya test methodology: Pratibha koch This liqui d based ThinP rep(R ) pap test was scree sherrill with the use of an image guide deja cooper Not Available [facility] ([facility]) [address] [facility], [place], [address], 11/28/2018 14:14:05 11/27/19 19 11/28/2018 pap, IG + HPV, cervi riya HPV aptima Negati ve negati ve This test detec ts fourt een high- risk HPV types (16/1 8/31/ 33/35 /39/4 5/ 51/52 /56/5 8/59/ 66/68 ) witho ut diffe renti ation . Not Available [facility] ([facility]) [address] [facility], [place], [address], 11/28/2018 14:14:05 11/27/19 19 11/29/2018 cultu re, urine urine culture, routine Final report abnormal Not Available [facility] ([facility]) [address] [facility], [place], [address], 11/29/2018 16:13:46 11/27/19 19 11/29/2018 cultu re, urine result 1 Escher ichia coli abnormal Great er than 100,0 00 colon y formi ng units per mL Cefaz lourdes <=4 ug/mL Cefaz lourdes with an ALTA <=16 predi cts susce ptibi lity to the oral agent s cefac barak, cefdi marty, cefpo doxim e, cefpr ozil, cefur oxime , cepha lexin , and lorac arbef when used for thera py of uncom plica graeme urina ry tract infec tions due to E. coli, Klebs iella pneum oniae , and Prote us mirab ilis. Not Available [facility] ([facility]) [address] [facility], [place], [address], 11/29/2018 16:13:46 11/27/19 19 11/29/2018 cultu re, urine antimicrobia l susceptibili ty Commen t S = Susce ptibl e; I = Inter media te; R = Resis tant P = Posit dheeraj; N = Negat dheeraj MICS are expre ssed in micro grams per mL Antib iotic RSLT# 1 RSLT# 2 RSLT# 3 RSLT# 4 Amoxi cilli n/Cla vulan ic Acid S Ampic illin R Cefep andreia S Ceftr iaxon e S Cefur oxime S Cipro floxa angie S Ertap enem S Genta micin S Imipe nem S Levof loxac in S Merop enem S Nitro furan toin S Piper acill in/Ta zobac scott S Tetra cycli ne S Tobra mycin S Trime thopr im/Daniel lfa R Not Available [facility] ([facility]) [address] [place], [address], 11/29/2018 16:13:46 11/27/19 19 11/29/2018 bacte rial vagin osis + vagin itis panel , vagin al trich vag by NEHEMIAS Negati ve negati ve Not Available [facility] ([facility]) [address] [place], [address], 12/03/2018 20:09:05 11/27/19 19 11/29/2018 bacte rial vagin osis + vagin itis panel , vagin al chlamydia trachomatis, NEHEMIAS Negati ve negati ve Not Available [facility] ([facility]) [address] [place], [address], 12/03/2018 20:09:05 11/27/19 19 11/29/2018 bacte rial vagin osis + vagin itis panel , vagin al neisseria gonorrhoeae, NEHEMIAS Negati ve negati ve Not Available [facility] ([facility]) [address] [place], [address], 12/03/2018 20:09:05 11/27/19 19 11/30/2018 bacte rial vagin osis + vagin itis panel , vagin al atopobium vaginae Low - 0 score Not Available [facility] ([facility]) [address] [place], [address], 12/03/2018 20:09:05 11/27/19 19 11/30/2018 bacte rial vagin osis + vagin itis panel , vagin al bvab 2 Low - 0 score Not Available [facility] ([facility]) [address] [facility], [place], [address], 12/03/2018 20:09:05 11/27/19 19 11/30/2018 bacte rial vagin osis + vagin itis panel , vagin al megasphaera 1 Low - 0 score Calcu late total score by kandis warren the 3 indiv idual bacte rial vagin osis (BV) marke r score s toget her. Total score is inter prete d as follo ws: Total score 0-1: Indic ates the absen ce of BV. Total score 2: Indet ermin ate for BV. Addit ional clini riya data shoul d be evalu ated to estab suellen a diagn osis. Total score 3-6: Indic ates the prese nce of BV. This test was devel oped and its perfo rmanc e roseanna cteri stics deter mined by [facility]. It has not been clear ed or appro mary kay by the Food and Drug Admin istra tion. The FDA has deter mined that such clear ance or appro jocelyn is not neces lula. Not Available [facility] ([facility]) [address] [facility], [place], [address], 12/03/2018 20:09:05 11/27/1911/30/2018 bacte rial vagin osis + vagin itis panel , vagin al louise albicans, NEHEMIAS Negati ve negati ve Not Available [facility] ([facility]) [address] [facility], [place], [address], 12/03/2018 20:09:05 11/27/19 19 11/30/2018 bacte rial vagin osis + vagin itis panel , vagin al louise glabrata, NEHEMIAS Negati ve negati ve This test was devel oped and its perfo rmanc e roseanna cteri stics deter mined by [facility]. It has not been clear ed or appro mary kay by the Food and Drug Admin istra tion. The FDA has deter mined that such clear ance or appro jocelyn is not tao cotton. Not Available [facility] ([facility]) [address] [place], [address], 12/03/2018 20:09:05 11/27/1912/03/2018 HSV (1+2) DNA, qual, PCR, unspe cifie d speci men hsv 1 NEHEMIAS Negati ve negati ve Not Available [facility] ([facility]) [address] [place], [address], 12/03/2018 20:09:05 11/27/19 19 12/03/2018 HSV (1+2) DNA, qual, PCR, unspe cifie d speci men hsv 2 NEHEMIAS Negati ve negati ve Not Available [facility] ([facility]) [address] [facility], [place], [address], 12/03/2018 20:09:05 11/27/1911/28/2018 cultu re, vagin al/re ctal, strep tococ cus group B strep gp B NEHEMIAS Negati ve negati ve Cente rs for Disea se Contr ol and Preve ntion (CDC) and Ameri can Congr ess of Obste trici ans and Gynec ologi sts (ACOG ) guide lines for preve ntion of perin atal group B strep tococ riya (GBS) disea se speci fy co-co llect ion of a vagin al and recta l swab speci men to maxim ize sensi tivit y of GBS detec tion. Per the CDC and ACOG, swabb ing both the lower vagin a and rectu m subst antia lly incre ases the yield of detec tion abebe red with sampl ing the vagin a alone . Penic illin G, ampic illin , or cefaz lourdes are indic ated for intra partu m proph ylaxi s of perin atal GBS colon izati on. Refle x susce ptibi lity testi ng shoul d be perfo rmed prior to use of clind amyci n only on GBS isola yoon from penic illin -rabia rgic women who are consi dered a high risk for anaph ylaxi s. Treat ment with vanco mycin witho ut addit ional testi ng is warra nted if resis tance to clind amyci n is noted . Not Available [facility] ([facility]) [address] [facility], [place], [address], 12/03/2018 20:09:06 01/02/20 19 01/02/2019 HCG, intac t + beta subun it, quant , serum or plasm a HCG,beta subunit,qnt, serum <1 mIU/m L Femal e (Non- pregn ant) 0 - 5 (Post menop ausal ) 0 - 8 Femal e (Preg nant) Weeks of Gesta tion 3 6 - 71 4 10 - 750 5 217 - 1938 6 158 - 02489 7 0497 -2906 63 8 86089 -3437 71 9 62546 -0534 10 10 75105 -9973 77 12 22990 -1686 12 14 62305 - 82618 15 99489 - 79204 16 8009 - 33056 17 2180 - 03996 18 9872 - 08818 Kelsey ECLIA metho dolog y Not Available [facility] ([facility]) [address] [facility], [place], [address], 01/02/2019 06:19:18 01/02/20 19 01/02/2019 proge stero ne, serum progesterone 0.1 NG/mL Folli cular phase 0.1 - 0.9 Lutea l phase 1.8 - 23.9 Ovula tion phase 0.1 - 12.0 Pregn ant First trime ster 11.0 - 44.3 Secon d trime ster 25.4 - 83.3 Third trime ster 58.7 - 214.0 Postm enopa usal 0.0 - 0.1 Not Available [facility] ([facility]) [address] [facility], [place], [address], 01/02/2019 06:19:19 05/23/20 18 05/22/2018 XR, chest No observ ation record ed. [facility] (Imaging) [address] [place], [address], 11/26/2018 13:59:17 11/12/19 19 11/11/2018 XR, foot No observ ation record ed. [facility] ([facility]) [address] [place], [address], 11/26/2018 13:59:17 12/02/19 19 12/01/2018 XR, kidne y + urete r + bladd er No observ ation record ed. [facility] Not Available 2018 14:24:09 11/17/19 24 11/16/2023 CT, abdom en + pelvi s, w/ contr ast No observ ation record ed. [email or web address] [facility] [address] [place], [address], 11/19/2023 10:11:22 Result Notes None recorded. Problems Name Problem SNOMED Code Status Onset Date Resolution Date Notes Provider Name and Address Organization Details Recorded Time Polycystic ovaries Active 018 Keyana Enriquez MD Attn: Accounting, [address] [place], [address], [facility] 8 12:49:56 Problem Notes None recorded. Procedures Surgical History Date Name Laterality Status Provider Name and Address Organization Details Recorded Time 11/27/19 19 Control Implant Replacement completed Sandy Gonzalez MA [place] - [facility] 11/26/2018 18:09:52 05/19/20 16 Control Implant Insertion completed Keyana Enriquez MD Attn: Accounting[address] [place], [address], [place] - [facility] 05/19/2016 11:41:25 Appendectomy completed Jamila Rodas MA [place] - [facility] 05/01/2016 14:36:53 Imaging Results Imaging Date Name Status LastModified by Organiz ation Details LastModified Time 05/22/2018 XR, chest completed [facility] (Im[facility]) [address] [place], [address], 11/26/2018 13:59:17 11/11/2018 XR, foot completed [facility] (Im[facility]) [address] [place], [address], 11/26/2018 13:59:17 12/01/2018 XR, kidney + ureter + bladder completed [facility] Information not available 12/03/2018 14:24:09 11/16/2023 CT, abdomen + pelvis, w/ contrast completed [address] [place], [address], 11/19/2023 10:11:22 Procedure Notes None recorded. Medical Equipment None Reported. Allergies No known drug allergies Medications Name Sig Start Date Stop Date Status Note LastModified by Organization Details LastModified Time metformin 500 mg tablet Take 1 tablet twice a day by oral route. 09/05 completed Not Available Not Available Not Available gabapentin 600 mg tablet active Not Available Not Available Not Available Stool Softener 100 mg capsule active Not Available Not Available Not Available ibuprofen 800 mg tablet 1 PO every 6 hours 2018 active Not Available Not Available Not Avai lable citalopram 10 mg tablet active Not Available Not Available Not Available prazosin 1 mg capsule active Not Available Not Available N ot Available ondansetron HCl 8 mg tablet active Not Available Not Available Not Available prednisone 20 mg tablet active Not Available Not Available Not Available dextroamphe tamine-amph etamine 10 mg tablet active Not Available Not Available No t Available metronidazo le 500 mg tablet Take 1 tablet twice a day by oral route for 7 days. 09/05 completed Not Available Not Available Not Available lamotrigine 25 mg tablet active Not Available Not Available Not Available ketorolac 10 mg tablet 12/31 completed Not Available Not Available Not Available meloxicam 7.5 mg tablet 03/04 completed Not Available Not Available Not Available terbinafine HCl 250 mg tablet active Not Available Not Available Not Available citalopram 20 mg tablet active Not Available Not Available Not Available topiramate 25 mg sprinkle capsule active Not Available Not Available Not Available dicyclomine 20 mg tablet 10/25 completed Not Available Not Available Not Available divalproex 125 mg tablet,fanny yed release active Not Available Not Available Not Available dalila n microsize 125 mg/5 mL oral suspension 12/31 completed Not Available Not Available Not Available montelukast 10 mg tablet active Not Available Not Available Not Available ibuprofen 600 mg tablet 12/31 completed Not Available Not Available Not Available polyethylen e glycol 3350 17 gram/dose oral powder active Not Available Not Available Not Available methylpredn isolone 4 mg tablets in a dose pack 10/25 completed Not Available Not Available Not Available albuterol sulfate HFA 90 mcg/actuati on aerosol inhaler active Not Available Not Available Not Available hydrocortis one 2.5 % topical ointment 07/16 completed Not Available Not Available Not Available ondansetron 4 mg disintegrat ing tablet 10/25 completed Not Available Not Available Not Available fluticasone propionate 50 mcg/actuati on nasal spray,suspe nsion active Not Available Not Available Not Available clotrimazol e 1 % topical cream active Not Available Not Available Not Available naproxen 500 mg tablet 10/25 completed Not Available Not Available Not Available hydroxyzine pamoate 25 mg capsule active Not Available Not Available N ot Available nitrofurant oin monohydrate /macrocryst als 100 mg capsule Take 1 capsule every 12 hours by oral route for 7 days. 2018 active Not Available Not Available Not Avai lable Nexplanon 68 mg subdermal implant Inject 1 implant by subcutane ous route. 2018 active Not Available Not Available Not Avai lable Vitals Date Recorded Body height Body mass index (BMI) Body weight Systolic blood pressure Diastolic blood pressure Provider Name and Address Organization Details Last Updated DateTime 03/04/2018 170.18 cm 34 kg/m2 55274.54 g 112 mm[Hg] 60 mm[Hg] Kate Valdez MA [place] - [facility] 8 16:31:03 Date Recorded Body height Body mass index (BMI) Body weight Heart rate Oxygen saturation Oxygen saturation in Arterial blood by Pulse oximetry Body temperature Systolic blood pressure Diastolic blood pressure Provider Name and Address Organization Details Last Updated DateTime 8 170.18 cm 34.2 kg/m2 14230.8 6 g 83 /min 99 % 99 % 98.4 [degF] 110 mm[Hg] 64 mm[Hg] Jamila YoderPRATIK moore [facility] 8 13:09:14 Date Recorded Body height Body mass index (BMI) Body weight Systolic blood pressure Diastolic blood pressure Provider Name and Address Organization Details Last Updated DateTime 05/06/2018 170.18 cm 34.2 kg/m2 06968.5 7 g 90 mm[Hg] 64 mm[Hg] Eduardvanessajt PRATIK Purvis [facility] 8 15:39:57 Date Recorded Body height Provider Name an d Address Organization Details Last Updated DateTime 10/25/2018 170.18 cm Anuel Hutton MA [facility] 2018 12:33:15 Date Recorded Body mass index (BMI) Body weight Body temperature Oxygen saturation Oxygen saturation in Arterial blood by Pulse oximetry Heart rate Systolic blood pressure Diastolic blood pressure Provider Name and Address Organization Details Last Updated DateTime 9 35.7 kg/m2 498724. 34 g 98 [degF] 98 % 98 % 91 /min 88 mm[Hg] 66 mm[Hg] Geoffrey Galo MD Attn: [address] [place], [address], [facility] 9 12:56:16 Date Recorded Body height Body mass index (BMI) Body weight Systolic blood pressure Diastolic blood pressure Provider Name and Address Organization Details Last Updated DateTime 11/26/2018 170.18 cm 35.2 kg/m2 721434.2 8 g 100 mm[Hg] 62 mm[Hg] Sandy Gonzalez MA [facility] 9 13:14:28 Social History Question Answer Notes LastModified by Organizat ion Details LastModified Time Tobacco Smoking Status Former Smoker Anuel Hutton MA null, [facility] 12/31/2017 14:52:43 Do You Have An Advance Directive? No Information not available 05/01/2016 What Is Your Level Of Alcohol Consumption? None Information not available 05/01/2016 Is Blood Transfusion Acceptable In An Emergency? Yes Information not available 05/01/2016 What Is Your Level Of Caffeine Consumption? Occasional Information not available 05/01/2016 How Much Tobacco Do You Chew? None Information not available 05/01/2016 Are You Currently Employed? No Information not available 05/01/2016 What Type Of Diet Are You Following? REGULAR Information not available 05/01/2016 Which Illicit Or Recreational Drugs Have You Used? 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 Student Information not available 05/01/2016 Live Alone Or With Others? With Others Information not available 05/01/2016 What Was The Date Of Your Most Recent Tobacco Screening? 05/06/2018 Information not available 01/09/2019 How Many Children Do You Have? 0 Information not available 05/01/2016 Performs Monthly Self-breast Exam? Yes Information no t available 05/01/2016 Do You Use Protection During Sex? Always Information not available 05/01/2016 What Is Your Relationship Status? Single Information not available 05/01/2016 Seat Belts Used Routinely Yes Information not available 05/01/2016 Are You Sexually Active? Yes Information not available 05/01/2016 At What Age Did You Start Smoking Tobacco? 0 Information not available 05/01/2016 General Stress Level High Information not available 05/01/2016 Do You Use Sunscreen Routinely? Yes Information not available 05/01/2016 How Many Years Have You Smoked Tobacco? 1 [email or web address] Information not available 12/31/2017 Sex: Unknown Functional Status Question Answer Note LastModified by Organization D etails LastModified Time What is your exercise level? Moderate Information not available 05/01/2016 Mental Status None recorded. Family History Relationship Description Onset Age of this Age Resolved Age Notes LastModified by Organization Details LastModified Time Mother Asthma [email or web address] Not available 05/01/2016 14:34:57 Mother Hypertensive disorder [email or web address] Not available 2015 14:35:25 Mother Depressive disorder [email or web address] Not available 12/31 14:50:20 Mother Disorder of thyroid gland [email or web address] Not available 12/31 14:50:28 Mother Heart disease [email or web address] Not available 12/31 14:50:38 Mother Malignant tumor of ovary [email or web address] Not available 12/31 14:51:59 Brother Attention deficit hyperactivit y disorder [email or web address] Not available 05/01 14:35:12 Sister Attention deficit hyperactivit y disorder [email or web address] Not available 12/16 14:49:58 Father Depressive disorder [email or web address] Not available 12/31 14:50:20 Father Hypercholest erolemia [email or web address] Not available 12/31 14:51:08 Medical History Condition Response Other N High Blood Pressure N Breast Cancer N Lung Disease N Depression Y Blood Clots N Breast Problem N Anesthesia Complications N Headaches/Migraines Y Anxiety Disorder N Muscle, Joint, or Bone Problems Y Polyps N Infertility N Acid Reflux (GERD) Y Cancer N Endometriosis N High Cholesterol N Liver Disease N Headaches Y Thyroid Problems N Kidney or Bladder Problems Y GI Problems N Acne Y Eating Disorder N Skin Problems Y Anemia N Diabetes N Ovarian Cancer N Blood Transfusions N Seizures/Epilepsy N Abuse/Domestic Violence N Asthma Y Allergies Y Hepatitis N Heart Disease N Pre-Eclampsia N Osteoporosis N Gynecological History Statement/Question Response Flow Light Date of LMP 09/23/2018 STIs/STDs N HPV Vaccine Y Age at Menarche 13 Current Control Method Implant Age at First Child 2 Sexually Active? Y Menses Monthly No Sexual Problems? N LMP Unknown Desired Control Method Implant Obstetrics History GPAL:G 0 P 0 0 0 0 Type Value Multiple Births 0 Full Term 0 Induced 0 Spontaneous 0 Premature 0 Living 0 Ectopics 0 Total 0 Past Encounters Encounter ID Performer Location Encounter Start Date Encounter Closed Date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
== END 2024-09-24 10:16 | disposition home or self-care (01) ==
PROVIDERS: Visit Provider Obstetrics & Gynecology
DX: Z34.00 Encounter for supervision of normal first pregnancy, unspecified trimester (principal); Z3A.00 Weeks of gestation of pregnancy not specified
CPT/HCPCS: 76801; 76817

== ENCOUNTER 2024-12-24 17:54 | Observation (INO) | payer MEDICAID, SELFPAY ==
[2024-12-24] VITALS (21 sets, daily range): BP systolic 89–109; BP diastolic 55–71; PULSE 67–84; TEMP 36.1; O2SAT 98–100; BMI 30.4
--- OUTSIDE RECORDS SUMMARY | 2024-12-24 18:02 | XMS_ITS | Clinical Summary ---
Author Organization [facility] Address [address] [place] 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 This disclosure is being madepursuant to the Care Everywhere program and may not contain all information available regarding this patient. Last updated 18.[facility] Allergies No known active allergies Medications * Be aware that medications may not be up to date on this document. Alwaysverify current medications with the patient. 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 Gender Identity Not on file Sexual Orientation Not on file Last Filed Vital Signs Vital Sign Reading Time Taken Comments Blood Pressure 112/66 05/01/2022 3:49 PM PURCHASING ASSOCIATE Pulse 75 05/01/2022 3:49 PM PURCHASING ASSOCIATE Temperature - - Respiratory Rate - - Oxygen Saturation - - Inhaled Oxygen Concentration - - Weight 88 kg (193 lb 14.4 oz) 08/27/2014 11:23 A M CDT Height 169.1 cm (5' 6.58) 08/27/2014 11:23 AM C DT Body Mass Index 30.76 08/27/2014 11:23 AM CDT Plan of Treatment Health Maintenance Due Date Last Done Comments HEPATITIS C SCREENING 08/30/2015 DTAP/TDAP/TD VACCINES (1 - Tdap) 2016 HEPATITIS B VACCINE (1 of 3 - 19+ 3-dose series) 2016 PAP SMEAR 2018 COVID-19 VACCINE (1 - 2023-2 5 season) 2024 DEPRESSION SCREENING 06/18/2024 INFLUENZA VACCINE (#1) 2025 ZOSTER VACCINE (1 of 2) 09/04/2047 [...] patient's age to complete this topic Insurance [facility] [place]
--- OUTSIDE RECORDS SUMMARY | 2024-12-24 18:02 | XMS_ITS | Data Portability ---
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 Plan of Treatment Reminders Order Date Submit Date Provider Last Modified By Organization Details Last Modified Time Details Appointments None recorded. Lab culture, urine 2018 019 THIELLS [facility], [address], [place], [address], 9 16:13:46 pap, IG + HPV, cervical 2018 019 [facility]IE[facility]S [facility], [address], [place], [address], 9 14:14:05 test, urine 2018 019 favio In-Office Order, Internal Use Only DO Not Attach Compendium DO Not Attach Compendium, Do Not Delete/merge, 9 14:31:53 urinalysi s, dipstick 2018 019 favio In-Office Order, Internal Use Only DO Not Attach Compendium DO Not Attach Compendium, Do Not Delete/merge, [id number] 9 14:31:53 bacterial vaginosis + vaginitis panel, vaginal - Z11.3, Z20.0 2018 019 THIELLS [facility], [address] [place] [address] [address], [place], [address], 9 20:09:05 HSV (1+2) DNA, qual, PCR, unspecifi ed specimen - Z11.3, Z20.2 2018 019 [facility], [address], [address], [place], [address], 9 20:09:05 culture, vaginal/r ectal, streptoco ccus group B - Z11.3, Z20.2 2018 019 [facility], [address] [place] [address], [address], [place], [address], 9 20:09:06 CBC w/ auto diff 2018 019 [facility], [address], [place], [address], 9 13:59:19 unlisted lab - CMP14+CBC /D/plt+TS [id number] 2018 019 [facility], [address], [place], [address], 9 06:36:07 lipid panel, serum 2018 019 [facility], [address], [place], [address], 9 06:36:08 culture, urine 2017 018 [facility], [address], [place], [address], 8 16:08:09 urinalysi s, dipstick 2017 018 [email or web address] In-Office Order, Internal Use Only DO Not Attach Compendium DO Not Attach Compendium, Do Not Delete/merge, [id number] 8 16:07:10 test, urine 2017 018 [email or web address] In-Office Order, Internal Use Only DO Not Attach Compendium DO Not Attach Compendium, Do Not Delete/merge, [id number] 8 16:07:10 urinalysi s, dipstick 2017 018 [email or web address] In-Office Order, Internal Use Only DO Not Attach Compendium DO Not Attach Compendium, Do Not Delete/merge, [id number] 8 16:49:22 culture, urine 2017 018 THIELLS [facility], [address] [address], [place], [address], 8 20:11:00 test, urine 2017 018 favio In-Office Order, Internal Use Only DO Not Attach Compendium DO Not Attach Compendium, Do Not Delete/merge, [id number] 8 13:49:54 Referral allergy referral - Please call patient to schedule appt. Thank you 2018 019 [email or web address] [facility], [address] [facility], [address], [place], [address], 9 14:25:06 neurosurg steph referral - Please call patient to schedule appt. Thank you 2017 018 elton Marie MD, [address] [place], [address], 8 09:34:13 Procedures None recorded. Surgeries None recorded. Imaging holter monitor - 48 hour monitor 2018 019 [facility] (Cardiology & Emg), [address] [facility] [address] [address], [place], [address], 9 14:01:26 electroen cephalogr am 2018 019 [facility] (Cardiology & Emg), [address] [facility] [address], [place], [address], 9 13:59:19 CT, brain, w/o contrast 2018 019 [facility] (Imaging), [address] [facility] [address], [place], [address], 9 13:59:19 Medication Orders nitrofura ntoin monohydra te/macroc rystals 100 mg capsule 2018 019 [facility], [address] , [place], [place], [id number], 9 14:07:05 Nexplanon 68 mg subdermal implant 2018 019 [email or web address] Not available 9 18:09:21 Macrobid 100 mg capsule 2017 018 [facility], [address] , [place], [place], [id number], 9 12:46:06 ibuprofen 800 mg tablet 2017 018 [facility]FACE [facility]14[facility], [address] , [place], [place], [id number], 8 15:49:15 ibuprofen 800 mg tablet 2017 018 INTERFACE [facility] #30333, [address], [place], [id number], 8 16:50:37 Macrobid 100 mg capsule 2017 018 [facility], [address], [place], [id number], 9 12:46:06 Patient TargetsNo targets recorded. Patient Instructions Encounter Date Encounter Id Patient Instructions Last Modified By Organization Details Last Modified Time 03/04/2018 [id number] polycystic ovary syndrome: care instructions [email or web address] Not available 03/04/2018 16:56:28 05/06/2018 [id number] Urinary Tract Infection (UTI) in Women: Care Instructions [email or web address] Not available 05/06/2018 16:07:10 polycystic ovary syndrome: care instructions [email or web address] Not available 05/06/2018 15:49:10 10/25/2018 [id number] seasonal allergi es: care instructions [facility] Not available 10/25/2018 13:16:12 fainting: care instructions [facility] Not available 10/25/2018 13:16:12 lightheadedness or faintness: care instructions si Not available 10/25/2018 13:16:12 Reason for Referral Neurosurgery Referral for Ac chitimacha low back pain Please call patient to [...] DO Not Attach Compendium, Do Not Delete/merge, [id number] 11/26/2018 13:13:30 11/27/1911/26/2018 urina lysis , dipst ick Nitrite positi ve Not Available In-Office Order Internal Use Only DO Not Attach Compendium DO Not Attach Compendium, Do Not Delete/merge, [id number] 11/26/2018 13:13:30 11/27/1911/26/2018 urina lysis , dipst ick Urobilinogen 1 Not Available In-Of fice Order Internal Use Only DO Not Attach Compendium DO Not Attach Compendium, Do Not Delete/merge, [id number] 11/26/2018 13:13:30 11/27/1911/26/2018 urina lysis , dipst ick Protein Negati ve Not Available In-Office Order Internal Use Only DO Not Attach Compendium DO Not Attach Compendium, Do Not Delete/merge, [facility] 11/26/2018 13:13:30 11/27/1911/26/2018 urina lysis , dipst ick pH 7.0 Not Available In-Office Order Internal Use Only DO Not Attach Compendium DO Not Attach Compendium, Do Not Delete/merge, [facility] 11/26/2018 13:13:30 11/27/1911/26/2018 urina lysis , dipst ick Blood Negati ve Not Available In-Office Order Internal Use Only DO Not Attach Compendium DO Not Attach Compendium, Do Not Delete/merge, [facility] 11/26/2018 13:13:30 11/27/1911/26/2018 urina lysis , dipst ick Specific [place] 1.020 Not Available In-Off ice Order Internal Use Only DO Not Attach Compendium DO Not Attach Compendium, Do Not Delete/merge, [facility] 11/26/2018 13:13:30 11/27/1911/26/2018 urina lysis , dipst ick Ketone Negati ve Not Available In-Office Order Internal Use Only DO Not Attach Compendium DO Not Attach Compendium, Do Not Delete/merge, [facility] 11/26/2018 13:13:30 11/27/1911/26/2018 urina lysis , dipst ick Bilirubin Negati ve Not Available In-Office Order Internal Use Only DO Not Attach Compendium DO Not Attach Compendium, Do Not Delete/merge, [facility] 11/26/2018 13:13:30 11/27/1911/26/2018 urina lysis , dipst ick Glucose Negati ve Not Available In-Office Order Internal Use Only DO Not Attach Compendium DO Not Attach Compendium, Do Not Delete/merge, [facility] 11/26/2018 13:13:30 11/27/1911/26/2018 pregn chelly test, urine HCG negati ve Not Available In-Office Order Internal Use Only DO Not Attach Compendium DO Not Attach Compendium, Do Not Delete/merge, [id number] 11/26/2018 13:13:29 05/06/20 18 05/06/2018 urina lysis , dipst ick Leukocytes Trace Not Available In-Offi ce Order Internal Use Only DO Not Attach Compendium DO Not Attach Compendium, Do Not Delete/merge, [id number] 05/06/2018 15:59:39 05/06/20 18 05/06/2018 urina lysis , dipst ick Nitrite positi ve Not Available In-Office Order Internal Use Only DO Not Attach Compendium DO Not Attach Compendium, Do Not Delete/merge, [id number] 05/06/2018 15:59:39 05/06/20 18 05/06/2018 urina lysis , dipst ick Urobilinogen .2 Not Available In-Of fice Order Internal Use Only DO Not Attach Compendium DO Not Attach Compendium, Do Not Delete/merge, 05/06/2018 15:59:39 05/06/20 18 05/06/2018 urina lysis , dipst ick Protein Negati ve Not Available In-Office Order Internal Use Only DO Not Attach Compendium DO Not Attach Compendium, Do Not Delete/merge, 05/06/2018 15:59:39 05/06/20 18 05/06/2018 urina lysis , dipst ick pH 5.5 Not Available In-Office Order Internal Use Only DO Not Attach Compendium DO Not Attach Compendium, Do Not Delete/merge, 05/06/2018 15:59:39 05/06/20 18 05/06/2018 urina lysis , dipst ick Blood Negati ve Not Available In-Office Order Internal Use Only DO Not Attach Compendium DO Not Attach Compendium, Do Not Delete/merge, 05/06/2018 15:59:39 05/06/20 18 05/06/2018 urina lysis , dipst ick Specific [place] 1.025 Not Available In-Off ice Order Internal Use Only DO Not Attach Compendium DO Not Attach Compendium, Do Not Delete/merge, 05/06/2018 15:59:39 05/06/20 18 05/06/2018 urina lysis , dipst ick Ketone Negati ve Not Available In-Office Order Internal Use Only DO Not Attach Compendium DO Not Attach Compendium, Do Not Delete/merge, [id number] 05/06/2018 15:59:39 05/06/20 18 05/06/2018 urina lysis , dipst ick Bilirubin Negati ve Not Available In-Office Order Internal Use Only DO Not Attach Compendium DO Not Attach Compendium, Do Not Delete/merge, [id number] 05/06/2018 15:59:39 05/06/20 18 05/06/2018 urina lysis , dipst ick Glucose Negati ve Not Available In-Office Order Internal Use Only DO Not Attach Compendium DO Not Attach Compendium, Do Not Delete/merge, [facility] 05/06/2018 15:59:39 05/06/20 18 05/06/2018 urina lysis , dipst ick Appearance Slight ly Cloudy Not Available In-Office Order Internal Use Only DO Not Attach Compendium DO Not Attach Compendium, Do Not Delete/merge, [facility] 05/06/2018 15:59:39 05/06/20 18 05/06/2018 urina lysis , dipst ick Color Dark Yellow Not Available In-Office Order Internal Use Only DO Not Attach Compendium DO Not Attach Compendium, Do Not Delete/merge, [facility] 05/06/2018 15:59:39 05/06/20 18 05/06/2018 pregn chelly test, urine HCG negati ve Not Available In-Office Order Internal Use Only DO Not Attach Compendium DO Not Attach Compendium, Do Not Delete/merge, [id number] 05/06/2018 15:59:18 03/04/20 18 03/04/2018 pregn chelly test, urine HCG negati ve Not Available In-Office Order Internal Use Only DO Not Attach Compendium DO Not Attach Compendium, Do Not Delete/merge, [id number] 03/04/2018 16:31:45 03/04/20 18 03/04/2018 urina lysis , dipst ick Leukocytes Trace Not Available In-Offi ce Order Internal Use Only DO Not Attach Compendium DO Not Attach Compendium, Do Not Delete/merge, [id number] 03/04/2018 16:31:43 03/04/20 18 03/04/2018 urina lysis , dipst ick Nitrite positi ve Not Available In-Office Order Internal Use Only DO Not Attach Compendium DO Not Attach Compendium, Do Not Delete/merge, [facility] 03/04/2018 16:31:43 03/04/20 18 03/04/2018 urina lysis , dipst ick Urobilinogen 4 Not Available In-Of fice Order Internal Use Only DO Not Attach Compendium DO Not Attach Compendium, Do Not Delete/merge, [facility] 03/04/2018 16:31:43 03/04/20 18 03/04/2018 urina lysis , dipst ick Protein 30 Not Available In-Office Order Internal Use Only DO Not Attach Compendium DO Not Attach Compendium, Do Not Delete/merge, [facility] 03/04/2018 16:31:43 03/04/20 18 03/04/2018 urina lysis , dipst ick pH 7.0 Not Available In-Office Order Internal Use Only DO Not Attach Compendium DO Not Attach Compendium, Do Not Delete/merge, [facility] 03/04/2018 16:31:43 03/04/20 18 03/04/2018 urina lysis , dipst ick Blood Negati ve Not Available In-Office Order Internal Use Only DO Not Attach Compendium DO Not Attach Compendium, Do Not Delete/merge, [facility] 03/04/2018 16:31:43 03/04/20 18 03/04/2018 urina lysis , dipst ick Specific [place] 1.025 Not Available In-Off ice Order Internal Use Only DO Not Attach Compendium DO Not Attach Compendium, Do Not Delete/merge, [facility] 03/04/2018 16:31:43 03/04/20 18 03/04/2018 urina lysis , dipst ick Ketone Trace Not Available In-Office Order Internal Use Only DO Not Attach Compendium DO Not Attach Compendium, Do Not Delete/merge, [facility] 03/04/2018 16:31:43 03/04/20 18 03/04/2018 urina lysis , dipst ick Bilirubin Small Not Available In-Offic e Order Internal Use Only DO Not Attach Compendium DO Not Attach Compendium, Do Not Delete/merge, [facility] 03/04/2018 16:31:43 03/04/20 18 03/04/2018 urina lysis , dipst ick Glucose Negati ve Not Available In-Office Order Internal Use Only DO Not Attach Compendium DO Not Attach Compendium, Do Not Delete/merge, [id number] 03/04/2018 16:31:43 03/04/20 18 03/07/2018 cultu re, urine urine culture, routine FINAL REPORT abnormal Not Available [facility] ([facility]) [address] [facility], [place], [address], 03/07/2018 20:11:00 03/04/20 18 03/07/2018 cultu re, [...] Prote us mirab ilis. Not Available [facility] ([facility]) [address] [facility], [place], [address], 03/07/2018 20:11:00 03/04/20 18 03/07/2018 cultu re, [...] thopr im/Daniel lfa R Not Available [facility] ([facility]) [address] [facility], [place], [address], 03/07/2018 20:11:00 05/06/20 18 05/09/2018 cultu re, urine urine culture, routine FINAL REPORT abnormal Not Available [facility] ([facility]) [address] [facility], [place], [address], 05/09/2018 16:08:09 05/06/20 18 05/09/2018 cultu re, [...] Prote us mirab ilis. Not Available [facility] ([facility]) [address] [facility], [place], [address], 05/09/2018 16:08:09 05/06/20 18 05/09/2018 cultu re, [...] thopr im/Daniel lfa R Not Available [facility] ([facility]) [address] [facility], [place], [address], 05/09/2018 16:08:09 05/06/20 18 05/06/2018 pleas e note please note COMMEN T The date and/o r time of colle ction was not indic ated on the requi sitio n as requi red by state and [place] law. The date of recei pt of the speci men was used as the colle ction date if not suppl ied. Not Available [facility] ([facility]) [address] [facility], [place], [address], 05/09/2018 16:08:10 05/06/20 18 05/06/2018 one speci [...] of colle ction . Not Available [facility] ([facility]) [address] [facility], [place], [address], 05/09/2018 16:08:10 05/06/20 18 05/09/2018 cultu re, urine urine culture, routine FINAL REPORT abnormal Not Available [facility] ([facility]) [address] [facility], [place], [address], 05/13/2018 11:35:26 05/06/20 18 05/09/2018 cultu re, [...] Prote us mirab ilis. Not Available [facility] ([facility]) [address] [facility], [place], [address], 05/13/2018 11:35:26 05/06/20 18 05/09/2018 cultu re, [...] thopr im/Daniel lfa R Not Available [facility] ([facility]) [address] [facility], [place], [address], 05/13/2018 11:35:26 05/06/20 18 05/06/2018 one speci [...] of colle ction . Not Available [facility] ([facility]) [address] [facility], [place], [address], 05/13/2018 11:35:27 10/26/19 19 10/26/2018 CMP14 +CBC/ D/plt +TSH- 28251 7-U glucose 82 mg/dL 65-99 Not Available [facility] ([facility]) [address] [facility], [place], [address], 10/26/2018 06:36:07 10/26/19 19 10/26/2018 CMP14 +CBC/ D/plt +TSH- 27637 7-U BUN 8 mg/dL 6-20 Not Available [facility] ([facility]) [address] [facility], [place], [address], 10/26/2018 06:36:07 10/26/1910/26/2018 CMP14 +CBC/ D/plt +TSH- 13598 7-U creatinine 0.82 mg/dL 0.57-1 .00 Not Available [facility] ([facility]) [address] [facility], [place], [address], 10/26/2018 06:36:07 10/26/19 19 10/26/2018 CMP14 +CBC/ D/plt +TSH- 18474 7-U eGFR if nonafricn AM 103 mL/mi n/1.7 3 >59 Not Available [facility] ([facility]) [address] [facility], [place], [address], 10/26/2018 06:36:07 10/26/19 19 10/26/2018 CMP14 +CBC/ D/plt +TSH- 35672 7-U eGFR if africn AM 118 mL/mi n/1.7 3 >59 Not Available [facility] ([facility]) [address] [place], [address], 10/26/2018 06:36:07 10/26/1910/26/2018 CMP14 +CBC/ D/plt +TSH- 71650 7-U BUN/creatini ne ratio 10 9-23 Not Available [facility] ([facility]) [address] [place] [address], [address], 10/26/2018 06:36:07 10/26/1910/26/2018 CMP14 +CBC/ D/plt +TSH- 16125 7-U sodium 142 mmol/ L 134-14 4 Not Available [facility] ([facility]) [address] [place], [address], 10/26/2018 06:36:07 10/26/1910/26/2018 CMP14 +CBC/ D/plt +TSH- 69284 7-U potassium 4.7 mmol/ L 3.5-5. 2 Not Available [facility] ([facility]) [address] [facility], [place], [address], 10/26/2018 06:36:07 10/26/1910/26/2018 CMP14 +CBC/ D/plt +TSH- 86275 7-U chloride 104 mmol/ L 96-106 Not Available [facility] ([facility]) [address] [place], [address], 10/26/2018 06:36:07 10/26/1910/26/2018 CMP14 +CBC/ D/plt +TSH- 72927 7-U carbon dioxide, total 24 mmol/ L 20-29 Not Available [facility] ([facility]) [address] [place], [address], 10/26/2018 06:36:07 10/26/1910/26/2018 CMP14 +CBC/ D/plt +TSH- 08062 7-U calcium 9.5 mg/dL 8.7-10 .2 Not Available [facility] ([facility]) [address] [place], [address], 10/26/2018 06:36:07 10/26/1910/26/2018 CMP14 +CBC/ D/plt +TSH- 37404 7-U protein, total 6.8 g/dL 6.0-8. 5 Not Available [facility] ([facility]) [address] [place], [address], 10/26/2018 06:36:07 10/26/1910/26/2018 CMP14 +CBC/ D/plt +TSH- 39161 7-U albumin 4.2 g/dL 3.5-5. 5 Not Available [facility] ([facility]) [address] [facility] [place], [address], 10/26/2018 06:36:07 10/26/19 19 10/26/2018 CMP14 +CBC/ D/plt +TSH- 24550 7-U globulin, total 2.6 g/dL 1.5-4. 5 Not Available [facility] ([facility]) [address] [facility], [place], [address], 10/26/2018 06:36:07 10/26/1910/26/2018 CMP14 +CBC/ D/plt +TSH- 35160 7-U A/G ratio 1.6 1.2-2. 2 Not Available [facility] ([facility]) [address] [facility], [place], [address], 10/26/2018 06:36:07 10/26/19 19 10/26/2018 CMP14 +CBC/ D/plt +TSH- 10858 7-U bilirubin, total 0.3 mg/dL 0.0-1. 2 Not Available [facility] ([facility]) [address] [facility], [place], [address], 10/26/2018 06:36:07 10/26/1910/26/2018 CMP14 +CBC/ D/plt +TSH- 37391 7-U alkaline phosphatase 66 IU/L 39-117 Not Available [facility] ([facility]) [address] [facility], [place], [address], 10/26/2018 06:36:07 10/26/1910/26/2018 CMP14 +CBC/ D/plt +TSH- 98230 7-U AST (SGOT) 27 IU/L 0-40 Not Available [facility] ([facility]) [address] [place], [address], 10/26/2018 06:36:07 10/26/19 19 10/26/2018 CMP14 +CBC/ D/plt +TSH- 70176 7-U ALT (SGPT) 36 IU/L 0-32 above high normal Not Available [facility] ([facility]) [address] [facility], [place], [address], 10/26/2018 06:36:07 10/26/19 19 10/26/2018 CMP14 +CBC/ D/plt +TSH- 98615 7-U TSH 1.030 uIU/m L 0.450- 4.500 Not Available [facility] ([facility]) [address] [place], [address], 10/26/2018 06:36:07 10/26/19 19 10/26/2018 CMP14 +CBC/ D/plt +TSH- 15571 7-U WBC 7.4 x10e3 /uL 3.4-10 .8 Not Available [facility] ([facility]) [address] [facility], [place], [address], 10/26/2018 06:36:07 10/26/19 19 10/26/2018 CMP14 +CBC/ D/plt +TSH- 20879 7-U RBC 5.32 x10e6 /uL 3.77-5 .28 above high normal Not Available [facility] ([facility]) [address] [place], [address], 10/26/2018 06:36:07 10/26/1910/26/2018 CMP14 +CBC/ D/plt +TSH- 05065 7-U hemoglobin 14.6 g/dL 11.1-1 5.9 Not Available [facility] ([facility]) [address] [place], [address], 10/26/2018 06:36:07 10/26/19 19 10/26/2018 CMP14 +CBC/ D/plt +TSH- 04657 7-U hematocrit 43.6 % 34.0-4 6.6 Not Available [facility] ([facility]) [address] [facility], [place], [address], 10/26/2018 06:36:07 10/26/1910/26/2018 CMP14 +CBC/ D/plt +TSH- 90716 7-U MCV 82 fL 79-97 Not Available [facility] ([facility]) [address] [facility], [place], [address], 10/26/2018 06:36:07 10/26/19 19 10/26/2018 CMP14 +CBC/ D/plt +TSH- 36335 7-U MCH 27.4 pg 26.6-3 3.0 Not Available [facility] ([facility]) [address] [facility], [place], [address], 10/26/2018 06:36:07 10/26/19 19 10/26/2018 CMP14 +CBC/ D/plt +TSH- 54391 7-U MCHC 33.5 g/dL 31.5-3 5.7 Not Available [facility] ([facility]) [address] [facility], [place], [address], 10/26/2018 06:36:07 10/26/1910/26/2018 CMP14 +CBC/ D/plt +TSH- 71565 7-U RDW 13.6 % 12.3-1 5.4 Not Available [facility] ([facility]) [address] [facility], [place], [address], 10/26/2018 06:36:07 10/26/1910/26/2018 CMP14 +CBC/ D/plt +TSH- 56052 7-U platelets 278 x10e3 /uL 150-37 9 Eff ectiv e November 04, 2018 the refer ence inter jocelyn for Plate lets will be villasenor ing to: 0 - 7 d 140 - 396 x10E3 /uL 8 - 30 d 139 - 531 x10E3 /uL 31 d - 999 yrs 150 - 450 x10E3 /uL Not Available [facility] ([facility]) [address] [facility], [place], [address], 10/26/2018 06:36:07 10/26/19 19 10/26/2018 CMP14 +CBC/ D/plt +TSH- 16348 7-U neutrophils 60 % not estab. Not Available [facility] ([facility]) [address] [facility], [place], [address], 10/26/2018 06:36:07 10/26/19 19 10/26/2018 CMP14 +CBC/ D/plt +TSH- 99230 7-U lymphs 29 % not estab. Not Available [facility] ([facility]) [address] [facility], [place], [address], 10/26/2018 06:36:07 10/26/19 19 10/26/2018 CMP14 +CBC/ D/plt +TSH- 36727 7-U monocytes 8 % not estab. Not Available [facility] ([facility]) [address] [facility], [place], [address], 10/26/2018 06:36:07 10/26/1910/26/2018 CMP14 +CBC/ D/plt +TSH- 31415 7-U eos 2 % not estab. Not Available [facility] ([facility]) [address] [facility], [place], [address], 10/26/2018 06:36:07 10/26/1910/26/2018 CMP14 +CBC/ D/plt +TSH- 90287 7-U basos 1 % not estab. Not Available [facility] ([facility]) [address] [facility], [place], [address], 10/26/2018 06:36:07 10/26/1910/26/2018 CMP14 +CBC/ D/plt +TSH- 40455 7-U immature cells ANALYT[employer] CONSULTANT Not Available [facility] ([facility]) [address] [facility], [place], [address], 10/26/2018 06:36:07 10/26/1910/26/2018 CMP14 +CBC/ D/plt +TSH- 41587 7-U neutrophils (absolute) 4.4 x10e3 /uL 1.4-7. 0 Not Available [facility] ([facility]) [address] [place], [address], 10/26/2018 06:36:07 10/26/19 19 10/26/2018 CMP14 +CBC/ D/plt +TSH- 07236 7-U lymphs (absolute) 2.2 x10e3 /uL 0.7-3. 1 Not Available [facility] ([facility]) [address] [place], [address], 10/26/2018 06:36:07 10/26/1910/26/2018 CMP14 +CBC/ D/plt +TSH- 16452 7-U monocytes(ab solute) 0.6 x10e3 /uL 0.1-0. 9 Not Available [facility] ([facility] [facility]) [address] [place], [address], 10/26/2018 06:36:07 10/26/19 19 10/26/2018 CMP14 +CBC/ D/plt +TSH- 71295 7-U eos (absolute) 0.1 x10e3 /uL 0.0-0. 4 Not Available [facility] ([facility]) [address] [place], [address], 10/26/2018 06:36:07 10/26/1910/26/2018 CMP14 +CBC/ D/plt +TSH- 18678 7-U baso (absolute) 0.1 x10e3 /uL 0.0-0. 2 Not Available [facility] ([facility]) [address] [place], [address], 10/26/2018 06:36:07 10/26/1910/26/2018 CMP14 +CBC/ D/plt +TSH- 71807 7-U immature granulocytes 0 % not estab. Not Available [facility] ([facility]) [address] [place], [address], 10/26/2018 06:36:07 10/26/1910/26/2018 CMP14 +CBC/ D/plt +TSH- 35892 7-U immature grans (abs) 0.0 x10e3 /uL 0.0-0. 1 Not Available [facility] ([facility]) [address] [facility], [place], [address], 10/26/2018 06:36:07 10/26/1910/26/2018 CMP14 +CBC/ D/plt +TSH- 96977 7-U NRBC ANALYTICS CONSULTANT Not Available [facility] ([facility]) [address] [facility], [place], [address], 10/26/2018 06:36:07 10/26/1910/26/2018 CMP14 +CBC/ D/plt +TSH- 41103 7-U hematology comments: ANALYTICS CONSULTANT Not Available [facility] ([facility]) [address] [facility], [place], [address], 10/26/2018 06:36:07 10/26/1910/26/2018 lipid panel , serum cholesterol, total 166 mg/dL 100-19 9 Not Available [facility] ([facility]) [address] [facility], [place], [address], 10/26/2018 06:36:07 10/26/1910/26/2018 lipid panel , serum triglyceride s 80 mg/dL 0-149 Not Available [facility] ([facility]) [address] [facility], [place], [address], 10/26/2018 06:36:07 10/26/1910/26/2018 lipid panel , serum HDL cholesterol 51 mg/dL >39 Not Available [facility] ([facility]) [address] [facility], [place], [address], 10/26/2018 06:36:07 10/26/19 19 10/26/2018 lipid panel , serum VLDL cholesterol riya 16 mg/dL 5-40 Not Available [facility] ([facility]) [address] [facility], [place], [address], 10/26/2018 06:36:07 10/26/1910/26/2018 lipid panel , serum LDL cholesterol calc 99 mg/dL 0-99 Not Available [facility] ([facility]) [address] 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) [address] [facility], [place], [address], 10/26/2018 06:36:07 10/31/1910/31/2018 hepat itis B surfa ce Ab, quali tativ e, serum hep B surface Ab, qual NON REACTI VE Non React dheeraj: Incon siste nt with immun ity, less than 10 mIU/m L React dheeraj: Consi stent with immun ity, great er than 9.9 mIU/m L Angelita ified by repea t james sis Not Available [facility] ([facility]) [address] [facility], [place], [address], 10/31/2018 15:10:12 10/31/19 19 10/31/2018 hepat itis C Ab, signa l-to- cutof f, serum or plasm a HCV Ab 0.1 s/co_ ratio 0.0-0. 9 Not Available [facility] ([facility]) [address] [facility], [place],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
--- OUTSIDE RECORDS SUMMARY | 2024-12-24 18:02 | XMS_ITS | Data Portability ---
Author Organization [facility] [place] Address [address] [place] [address] [place] [address] Assessment No assessment recorded. Plan of Treatment Reminders Order Date Submit Date Provider Last Modified By Organization Details Last Modified Time Details Appointments None recorded. Lab test, urine 2023 024 [address], [address], [place], [address], 13:08:48 Referral None recorded. Procedures None recorded. Surgeries None recorded. Imaging US, obstetric, transvagina l [address], [address], [address], [place], [address], 4 23:33:04 US, obstetric, 1st trimester [address], [facility] [address], [place], [address], 21:14:04 Medication Orders Cytotec 200 mcg tablet 2023 024 [facility] [address] [place], [address], 4 12:50:32 promethazin e 25 mg tablet 2023 024 [facility] [address] [place], [address], 12:50:42 Patient TargetsNo targets recorded. Patient InstructionsNo instructions recorded. Reason for Referral None Reported. Results Created Date Observation Date Name Description Value Unit Range Abnormal Flag Note LastModifiedBy Organization Detail LastModifiedTime 01/31/20 24 01/31/2024 CT/GC AND TRICH OMONA S VAGIN DIXON (RRNA ), URINE chlamydia trachomatis, PCR Negati ve negati ve Not Available [facility] (Lab) [address], [place], [address], 02/01/2024 12:53:19 01/31/20 24 01/31/2024 CT/GC AND TRICH OMONA S VAGIN DIXON (RRNA ), URINE neisseria gonorrhoeae, PCR Negati ve negati ve Not Available [facility] (Lab) [address], [place], [address], 02/01/2024 12:53:19 01/31/20 24 01/31/2024 CT/GC AND TRICH OMONA S VAGIN DIXON (RRNA ), URINE trichomonas vaginalis ribosomal RNA (rrna) Negati ve negati ve Not Available [facility] (Lab) [address], [place], [address], 02/01/2024 12:53:19 03/10/20 24 03/10/2024 BHCG, QUANT [...] Weeks 8,099 - 58,17 6 Not Available [facility] (Lab) [address], [place], [address], 03/11/2024 07:48:22 03/10/20 24 03/10/2024 LEAD, BLOOD (ADUL T/PED IATRI C) lead, whole blood <1.0 mcg/d L <3.5 See Note 1 James sis was perfo rmed by Yazan Leonard ed Plasm a Mass Spect romet ry (ICPM S) Note 1 This test was devel oped and its james tical perfo rmanc e roseanna cteri stics have been deter mined by [employer] [facility]. It has not been clear ed or appro mary kay by the FDA. This assay has been valid ated pursu ant to the CLIA regul ation s and is used for clini riya purpo ses. Ethni city: [facility] onian Perfo rming Organ izati on Infor fadijil n: Site ID: CB Name: [employer]Lorenzosean Juarez Addre ss: [address] [place] [address] Direc tor: Donna Alfaro s Not Available [facility] (Lab) [address], [place], [address], 03/12/2024 10:05:19 03/18/20 24 03/18/2024 BHCG, QUANT [...] Weeks 8,099 - 58,17 6 Not Available [facility] (Lab) [address], [place], [address], 03/19/2024 05:47:33 03/18/20 24 03/18/2024 pregn chelly test, urine HCG positi ve Not Available Patrick [address], [place], [address], 03/18/2024 13:04:46 03/25/20 24 03/25/2024 BHCG, QUANT [...] Weeks 8,099 - 58,17 6 Not Available [facility] (Lab) [address], [place], [address], 03/26/2024 14:43:06 01/31/20 24 01/31/2024 US, obste tric, 1st trime ster No observ ation record ed. [facility] [address], [place], [address], 01/31/2024 18:06:17 01/31/20 24 01/31/2024 US, obste tric, follo w-up No observ ation record ed. [address]ia [address], [place], [address], 02/01/2024 14:53:55 02/22/20 24 02/25/2024 US, obste tric, trans vagin al No observ ation record ed. [email or web address] Patrick [address], [place], [address], 02/25/2024 11:46:34 02/22/20 24 02/22/2024 US, obste tric, trans vagin al No observ ation record ed. CHRISTIN [address], [place], [address], 02/25/2024 12:03:50 Result Notes None recorded. Problems Name Problem SNOMED Code Status Onset Date Resolution Date Notes Provider Name and Address Organization Details Recorded Time 57577051 Completed 202109/06/2022 Dorys dobson [place] - [facility] 3 22:58:54 Asthma 927317061 Completed very mild [facility] 3 22:58:48 Asperger's disorder 97803486 Completed [facility] 3 22:58:48 growth abnormality 976820829 Completed 4% on 04/10 [facility] 3 22:58:48 Problem Notes None recorded. Procedures Surgical History Date Name Laterality Status Provider Name and Address Organization Details Recorded Time 09/15/19 23 Date of Last Pap Smear completed [facility] 05/24/2023 10:42:30 06/18/19 05 Appendectomy completed [facility] 03/11/2022 10:33:48 Imaging Results None recorded. Procedure Notes None [...] Updated DateTime 01/31/2024 170.18 cm 34.8 kg/m2 464914.51 g 101/69 mm[Hg] Maribel Vazquez [facility] 01/31/2024 12:11:04 Date Recorded Body height Body mass index (BMI) Body weight Body height Body mass index (BMI) Body weight Systolic And Diastolic Systolic And Diastolic Provider Name and Address Organization Details Last Updated DateTime 170.18 cm 34.1 kg/m2 69609.1 4 g 170.18 cm 34.1 kg/m2 98638.1 4 g 123/78 mm[Hg] 123/78 mm[Hg] Nadia Kaiser [facility] 17:28:20 Date Recorded Body height Body mass index (BMI) Body weight Systolic And Diastolic Provider Name and Address Organization Details Last Updated DateTime 03/18/2024 170.18 cm 34 kg/m2 62932.98 g 106/84 mm[Hg] Lucie Slater [facility] 03/18/2024 12:50:08 Social History Question Answer Notes LastModified by Organizat ion Details LastModified Time Tobacco Smoking Status Never Smoker Dorys Butt [facility] 03/11/2022 12:22:10 If You Are , What Was Your Level Of Alcohol Consumption Prior To ? Occasional Information not available 03/11/2022 Are You Blind Or Do You Have Difficulty Seeing? No Information n ot available 03/11/2022 In The 14 Days Before Symptom Onset, Have You Had Close Contact With A Laboratory-confirm ed COVID-19 While That Case Was Ill? No Information n ot available 01/31/2024 In The 14 Days Before [...] Difficulty Hearing? No Information not available 03/11/2022 Are You Sexually Active? Yes Information not available 03/11/2022 Do You Have Difficulty Walking Or Climbing Stairs? No Information not available 03/11/2022 Sex: Female Functional Status Question Answer Note LastModified by Organizat ion Details LastModified Time Do you or have you ever used any other forms of tobacco or nicotine? Yes Information not available 03/11/2022 What is your level of alcohol consumption? None Information not available 03/11/2022 Are you able to walk? YESWOREST Information not available 03/11/2022 Are you able to care for yourself? Yes Information not available 03/11/2022 Do you have difficulty dressing or bathing? No Information not available 03/11/2022 Do you or have you ever used e-cigarettes or vape? Current user of electronic cigarettes Information not available 03/11/2022 Mental Status None recorded. Family History Relationship Description Onset Age of this Age Resolved Age Notes LastModified by Organization Details LastModified Time Mother Asthma Not available 03/11/2022 13:07:52 Mother Malignant tumor of breast Not available 2021 13:08:04 Mother Heart disease Not available 2021 13:08:31 Mother Hyperlipidem ia Not available 2023 10:47:22 Mother Hypertensive disorder Not available 2021 13:09:06 Mother Malignant neoplasm of ovary Not available 2021 13:09:18 Mother Cyst of ovary [email or web address] Not available 2023 10:47:22 Brother Asthma Not available 03/11/2022 13:07:52 Maternal Grandmother Heart disease Not available 2021 13:08:31 Maternal Grandfather Heart disease Not available 2021 13:08:31 Maternal Grandfather Hyperlipidem ia [email or web address] Not available 2023 10:47:22 Maternal Grandfather Hypertensive disorder Not available 2021 13:09:06 Father Seizure disorder [email or web address] Not available 2023 10:47:22 Medical History Condition Response Other Y Anxiety Disorder Y Asthma Y Polycystic ovary syndrome Y Depression/ depression Y Gynecological History Statement/Question [...] SNOMED-CT Code Diagnosis ICD10 Code Diagnosis Note [id number] Jose Wheeler MD Patrick [address] [address] 03/09/2022 11:00:19 03/09/2022 12:42:00 screening for malformation 318782742 Z36.3 [id number] Jose Wheeler MD Patrick [address],[place] [address] 03/11/2022 11:56:07 03/13/2022 15:33:14 Routine care 566335265 Z34.82 [id number] MD Lester Espinal [address] [address] 03/31/2022 10:57:44 03/31/2022 11:44:48 Routine care 706018101 Z34.82 [id number] MD Lester Espinal [address],[place] [address] 04/14/2022 11:00:57 04/14/2022 12:20:56 Nausea and vomiting 58415555 R11.2 [id number] MD Lester Espinal [address],[place] [address] 05/23/2022 11:16:08 05/23/2022 12:05:34 Vaginitis 71603499 N76.0 Routine an tenatal care 790757888 Z34.82 [id number] MD Lester Espinal [address],[place] [address] 06/01/2022 15:15:04 06/01/2022 16:52:51 Routine care 730091449 Z34.82 [id number] MD Lester Espinal [address],[place] [address] 07/07/2022 14:40:23 07/07/2022 16:19:52 care 193896523 Z39.2 patient is 26-year-ol d female who is 4 weeks from a vaginal . Is doing well. She stopped bleeding. Her mood is good. Her baby is good. She does not want any contracept ion at this time. She is bottle feeding. She has not had sex. She will follow-up in 2 months for well-woman exam. [id number] Jose Wheeler MD Patrick [address],[place] [address] 09/14/2022 15:47:01 09/14/2022 16:50:46 Gynecologic examination 91699680 Z01.419 Annual gynecologi riya exam performed. Patient [...] - orderedx Pap - today depression 58 264581 F53.0 [id number] ADRIANA Vela Patrick [address],[place] [address] 11/30/2022 12:19:29 11/30/2022 15:48:19 Vulval irritation 183086790 N90.89 Reviewed vulvar care guidelines - free [...] plan of care. Venereal d isease screening 045541135 Z11.3 Contact dermatitis 76256 004 L25.9 [id number] Jose Wheeler MD Patrick [address],[facility] [place] [address] 01/31/2024 10:47:11 01/31/2024 11:53:42 Uterine size for dates discrepancy 675567789 O26.841 Z3A.01 [id number] Jose Wheeler MD Patrick [address],[facility] [place] [address] 01/31/2024 10:47:37 01/31/2024 12:52:11 Nausea and vomiting 34485293 R11.2 Amenorrhea 13989165 N91. 2 this patient is a 28-year-ol [...] her next visit. Previous growth restrictio n [id number] Jose Wheeler MD Patrick [address],[place] [address] 02/22/2024 17:01:45 02/25/2024 08:29:13 Missed miscarriage 95478192 O02.1 Z3A.00 [id number] Jose Wheeler MD Patrick [address],[place] [address] 02/22/2024 17:27:19 02/26/2024 02:59:46 Missed miscarriage 55146879 O02.1 Z3A.00 This patient is a 28 [...] over 30 minutes on this patient's care. [id number] Jose Wheeler MD Patrick [address],[place] [address] 03/18/2024 12:41:38 03/18/2024 13:16:30 Missed miscarriage 25796927 O02.1 Z3A.00 this patient is a 28-year-ol [...] Recorded Advance Directives Directive None Recorded Payers Insurance Date Sequence Insurance Name Policy Number Policy Valladares Covered Member ID Valladares Member ID Guarantor Name 04/10/2024 1 [place] [facility] Luana Sorianoginna [id number] Luana Kay Tellor 04/18/2024 1 [employer] [place] (MEDICAID HMO) [id number] Luana Tellor [id number] Luana Woods Tellginna Notes Date Note Type Note Provider Name [...] She was given recommendations on exercise, diet, pxxk-jgv-[id number] medications. We reviewed her obstetric history. We reviewed her medical history. We reviewed her social history. She will begin routine care at her next visit. Previous growth restriction Jose Wheeler MD [address], [place], [address], [facility] 01/31/2024 12:51:20 02/22/2024 text/html This patient [...] care. Jose Wheeler MD [address], [place], [address], [facility] 02/24/2024 22:20:48 [...] given precautions and instructions. Jose Wheeler MD [address], [place], [address], [facility] 03/18/2024 13:09:19 OBGyn Episode Ob Episode Information Episode Created Date Number of Fetuses Patient Bloodtype Patient rh Status Prepregnancy Weight lbs Domestic Partner Domestic Partner Phone Father Name Operating Room Coordinator Status 03/11/20 22 1 CLOSED Fetus Data First Name Last Name Admitted to NICU Weight (g) Sex Living Outcome Pediatric Complications Fetus ID Race Codes Race Delivery Type , Spontane ous [id number] Santana Calculation Initial Santana Date Initial Exam [...] Domestic Partner Domestic Partner Phone Father Name Operating Room Coordinator Status 03/11/20 22 1 CLOSED Fetus Data First Name Last Name Admitted to NICU Weight (g) Sex Living Outcome Pediatric Complications Fetus ID Race Codes Race Delivery Type , Spontane ous [id number] Santana Calculation Initial Santana Date Initial Exam [...] Domestic Partner Domestic Partner Phone Father Name Operating Room Coordinator Status 03/11/20 22 1 CLOSED Fetus Data First Name Last Name Admitted to NICU Weight (g) Sex Living Outcome Pediatric Complications Fetus ID Race Codes Race Delivery Type , Spontane ous [id number] Santana Calculation Initial Santana Date Initial Exam [...] Domestic Partner Domestic Partner Phone Father Name Operating Room Coordinator Status 03/11/20 22 1 O Positive CLOSED Fetus Data First Name Last Name Admitted to NICU Weight (g) Sex Living Outcome Pediatric Complications Fetus ID Race Codes Race Delivery Type true Full Term [id number] Vaginal Delivery Problems Problem Notes Per VIVIANA Desouza 05/19 - Pt is s cheduled weekly for BPP every Sunday until 06/05, will ONLY add on NST if growth drops below 5%, if above, NST is not warranted. VIVIANA HARTLEYNext appt: 05/29 u/s only 145PCMV NEGGBS NEG Problem Name Start Date End Date Resolution Snomed Code Not e Asthma 976349808 very mild growth abnormality 40359 4007 4% on 04/10 Asperger's disorder 87447629 Santana Calculation Initial Santana Date Initial Exam [...] Gestation 0 [email or web address] 03/11/2022 06/13/20 22 0 Pre- Flowsheet Flowsheet Date 03/11/2022 Romero Score Blood Edema Fundus Height Fundus Units Glucose Ketones Leukocytes Nitrite Labor Signs Protein Cervic Dilation Cervic Effacement Cervic Station 26 Type Weight in lbs Pre/Post Dialysis Refused Weight 226.345076029340 BP Diastolic BP Location Tested BP Systolic [...] Weight in lbs Pre/Post Dialysis Refused Weight 229.968085337188 BP Diastolic BP Location Tested BP Systolic [...] Weight in lbs Pre/Post Dialysis Refused Weight 227.685571333325 BP Diastolic BP Location Tested BP Systolic [...] Weight in lbs Pre/Post Dialysis Refused Weight 223.915136892986 BP Diastolic BP Location Tested BP Systolic [...] Weight in lbs Pre/Post Dialysis Refused Weight 224.425975270302 BP Diastolic BP Location Tested BP Systolic BP Type 74 R arm 110 sitting Fetus Heart Rate Present A 145 Fetus Movement Comments increased lower back and pel mina pain/pressure. Flowsheet Date 07/07/2022 Romero Score Blood Edema Fundus Height Fundus Units Glucose Ketones Leukocytes Nitrite Labor Signs Protein Cervic Dilation Cervic Effacement Cervic Station Type Weight in lbs Pre/Post Dialysis Refused Weight 220.742676429744 BP Diastolic BP Location Tested BP Systolic [...] Estim ated Date of Delivery false Thalassemia (Nepalese, Khmer, Mediterranean, Or Background): MCV < 80 false Neural Tube Defect (Meningomyelocele, Spina Bifi da, Or Anencephaly) false Congenital Heart Defect false Down Syndrome false Patricio-Sachs (eg, Samaritan, Cajun, Angolan-[place]) f alse Carlos Disease false Sickle Cell Disease Or Trait () false Hemophilia Or Other Blood Disorders false Muscular Dystrophy false Cystic Fibrosis false Fadi's Chorea false Intellectual Disability/Autism false If Yes, [...] d Regional-Ep idural 39 false Svetlana Medrano ANTHONYLincoln SGA Discharge Information Feeding Method Contraceptive Method Maternal HG B and HCT Levels Ob Episode Information Episode Created Date Number of Fetuses Patient Bloodtype Patient rh Status Prepregnancy Weight lbs Domestic Partner Domestic Partner Phone Father Name Operating Room Coordinator Status 03/26/20 24 1 CLOSED Fetus Data First Name Last Name Admitted to NICU Weight (g) Sex Living Outcome Pediatric Complications Fetus ID Race Codes Race Delivery Type , Spontane ous [id number] Santana Calculation Initial Santana Date Initial Exam [...] Domestic Partner Domestic Partner Phone Father Name Operating Room Coordinator Status 03/26/20 24 1 CLOSED Fetus Data First Name Last Name Admitted to NICU Weight (g) Sex Living Outcome Pediatric Complications Fetus ID Race Codes Race Delivery Type , Spontane ous [id number] Santana Calculation Initial Santana Date Initial Exam [...]
--- OUTSIDE RECORDS SUMMARY | 2024-12-24 18:02 | XMS_ITS | Clinical Summary ---
Author Organization [facility] Address [address] [place] [address] Phone Care Team Providers Care Control Room Agent Name Role Phone Provider, None Primary Care [...] = 0.6 oz pur e alcohol) Comments Unknown Sex and Gender Information Value Date Recorded [...] 11:28 PM CDT Height 170.2 cm (5' 7) 02/05/2024 11:28 PM CDT Body Mass Index 34.77 02/05/2024 11:28 PM CDT Plan of Treatment Health Maintenance Due Date Last Done Comments Human Papillomavirus (HPV) Immunization (1 - 3-dose series) 2012 Hepatitis B Immunization (1 of 3 - 19+ 3-dose series) 2016 Pap Smear 2018 SARS-COV-2 Immunization ( - 2023- season) 2024 Influenza Immunization (#1) 2025 Respiratory Syncytial Virus (RSV) Immunization (Adult) (1 - 1-dose 75+ series) 2072 DTaP/Tdap/Td Immunization Discontinued 10/30/2020 TdaP Immunization Completed 10/30/2020 Hepatitis C Virus (HCV) Screening Completed 022 Meningococcal Immunization (ACWY) Aged Out No longer eligible based on patient's age to complete this topic Pneumococcal Immunization Combined Aged Out No longer eligible based on patient's age to complete this topic Rotavirus Immunization Aged Out No lo nger eligible based on patient's age to complete this topic Insurance MEDICAID [place] Care Teams Control Room Agent Relationship Specialty Start Date End Date Provider, None [place] PCP - General 02/05/24
[2024-12-24 19:01] LABS: Add Urine Microscopic? YES; Appearance Urine Cloudy (Clear); Glucose Urine UA Negative (Negative); Leukocyte Esterase Ur Trace LEU/UL (Negative); Nitrate Urine Negative (Negative); Non Pathogenic Casts 0-2; Specific Grav Ur 1.009 (1.001-1.035)
--- NOTE | 2024-12-24 19:21 | OBADM ---
This patient, Luana Guevara, admitted to the OB room OB Post 115 for observation. Patient/family oriented to hospital policies and general routines including ID bracelet, bed and alarms, visiting hours, pain management, procedures, bathroom and other care routines, personal items, smoking policy, room service/diet, and visiting hours. Patient/Family are encouraged to report perceived risks to care and to ask questions if they do not understand what they are told or what they should do.
--- NOTE | 2024-12-24 19:30 | PC.NURSE ---
Called Dr. Espinosa, update on pt, sharp lower abdominal pain left to right side 9 out of 10, nausea, no vaginal bleeding or leaking, and tracing. Orders received to perform cervical exam, instruct pt to take Tylenol 1000 mg, and discharge pt with instructions to keep next scheduled appointment and when to return to the unit.
--- NOTE | 2024-12-24 20:01 | PC.NURSE ---
Pt discharged with instructions to take Tylenol 1000 mg, keep next scheduled appointment, and when to return to the unit, pt verbalizes understanding.
--- NOTE | 2025-01-14 08:33 | PM.OBTRLD ---
OB - Triage/Final Diagnosis Visit Information Comments/Additional reasons for admission: I have assessed the risk for this patient, Luana Guevara, and determined that she would benefit from observation care. Evaluation Laboratory results: Laboratory Tests 12/24/24 18:30 Urine Color Yellow Urine Appearance Cloudy H Urine pH 7.0 Ur Specific [place] 1.009 Urine Protein Negative Urine Glucose (UA) Negative Urine Ketones Negative Ur Blood (Man) Negative Urine Nitrate Negative Urine Bilirubin Negative Urine Urobilinogen 1.0 Leukocyte Esterase Rfl Trace H Urine RBC 0-2 Urine WBC 0-5 Ur Squamous Epith Cells None seen Urine Bacteria None seen Urine Casts 0-2 Final Diagnosis (1) Abdominal pain: Code(s): R10.9 - Unspecified abdominal pain Status: Acute
== END 2024-12-24 20:01 | disposition home or self-care (01) ==
PROVIDERS: Admitting Provider Obstetrics & Gynecology; Visit Provider Obstetrics & Gynecology
DX: O26.892 Other specified pregnancy related conditions, second trimester (principal); R10.9 Unspecified abdominal pain; Z3A.24 24 weeks gestation of pregnancy
CPT/HCPCS: 81001; G0378; G0379

== ENCOUNTER 2025-02-03 21:40 | Observation (INO) | payer OTHER, SELFPAY ==
[2025-02-03] VITALS (21 sets, daily range): BP systolic 97–106; BP diastolic 67–69; PULSE 69–95; O2SAT 96–99; BMI 31.2
--- NOTE | 2025-02-03 21:40 | PC.NURSE ---
Pt arrives to unit via EMS with back and abdominal pain 8 out of 10.
--- OUTSIDE RECORDS SUMMARY | 2025-02-03 21:49 | XMS_ITS | Clinical Summary ---
Author Organization [facility] [employer] Address [address] [place] [address] Care Team Providers Care Bingo Attendant Name Role Phone Unavailable Primary Care Provider Unavailabl e Source Comments [facility] [employer],non-owned Affiliates and Associated Physician Practices is amultiple site organization consisting of ambulatory clinics and hospital sitesin [place], [place], [place] and [place]. This disclosure is being madepursuant to the Care Everywhere program and may not contain all information available regarding this patient. Last updated 18.[facility] [employer] Allergies No known active allergies Medications * [...] on file Legal Sex Female 5:38 AM [employer] Gender Identity Not on file Sexual Orientation Not on file Last Filed Vital Signs Vital Sign Reading Time Taken Comments Blood Pressure 112/66 05/01/2022 3:49 PM [employer] PAT[employer]OL Pulse 75 05/01/2022 3:49 PM [employer]OL Temperature - - Respiratory Rate - - [...] 2023-2 5 season) 2024 DEPRESSION SCREENING 06/18/2024 HPV VACCINE (1 - 3-dose SCDM series) 2024 INFLUENZA VACCINE (#1) 2025 ZOSTER VACCINE (1 [...] patient's age to complete this topic Insurance [facility] [place]
--- OUTSIDE RECORDS SUMMARY | 2025-02-03 21:49 | XMS_ITS | Clinical Summary ---
Author Organization [facility] Address [address] [place] [address] Phone Care Team Providers Care Float Nurse Name Role Phone Provider, None Primary Care [...] SARS-COV-2 Immunization ( - 2023- season) 2024 Human Papillomavirus (HPV) Immunization (1 - 3-dose SCDM series) 2024 Influenza Immunization (#1) 2025 Respiratory Syncytial [...] this topic Insurance MEDICAID [place] Care Teams Float Nurse Relationship Specialty Start Date End Date Provider, None [place] PCP - General 02/05/24
--- NOTE | 2025-02-03 22:23 | OBADM ---
This patient, Luana Guevara, admitted to the OB room OB Post 116 for observation. Patient/family oriented to hospital policies and general routines including ID bracelet, bed and alarms, visiting hours, pain management, procedures, bathroom and other care routines, personal items, smoking policy, room service/diet, and visiting hours. Patient/Family are encouraged to report perceived risks to care and to ask questions if they do not understand what they are told or what they should do.
--- NOTE | 2025-02-03 22:31 | PC.NURSE ---
Dr. Horne at nurses station, update on pt and back and abdominal pain radiating to vagina and pelvis 8 out of 10. Orders received for 28 week labs and bile acids, tylenol 1000 mg every six hours as needed for pain and zofran 4mg.
[2025-02-03 22:59] LABS: Add Urine Microscopic? YES; Appearance Urine Cloudy (Clear); Glucose Urine UA Negative (Negative); Leukocyte Esterase Ur 3+ LEU/UL (Negative); Need Manual Microscopic Reviewed; Nitrate Urine Negative (Negative); Specific Grav Ur 1.012 (1.001-1.035)
[2025-02-03] MEDS: ONDANSETRON HCL ODT 4 MG TABLET PO (23:10)
[2025-02-03] MEDS: ACETAMINOPHEN 500 MG TABLET 1000 MG PO (23:13)
[2025-02-03 23:37] LABS: Hematocrit 29.7 % (37.0-47.0); Hemoglobin 9.1 g/dL (12.0-15.0); Mean Corpuscular HGB Conc 30.6 g/dl (32-36); Mean Corpuscular Hemoglobin 22.9 pg (26-34); Mean Corpuscular Volume 74.6 fl (80-100); Platelet Count Result 295 k/mm3 (150-375); Red Blood Count 3.98 M/mm3 (4.2-5.4); White Blood Count 10.9 K/mm3 (4.5-10.0)
[2025-02-04] VITALS (7 sets, daily range): BP systolic 107; BP diastolic 62; PULSE 71–78; TEMP 35.8; O2SAT 98–100
[2025-02-04 00:01] LABS: Alanine Aminotransferase 8 U/L (6-35); Albumin Level 3.2 g/dL (3.5-5.1); Alkaline Phosphatase 117 U/L (38-126); Anion Gap 6 mmol/L (4-12); Aspartate Amino Transferase 17 U/L (14-36); Bilirubin,Total 0.3 mg/dL (0.2-1.3); Blood Urea Nitrogen 4 mg/dL (7-17); Calcium 8.8 mg/dL (8.4-10.2); Carbon Dioxide 21 mmol/L (22-30); Chloride 106 mmol/L (98-107); Estimated CRCL calculation 150 ml/min; Estimated Glomerular Filt Rate > 60; Glucose 85 mg/dL (65-110); Potassium 3.6 mmol/L (3.4-5.0); Sodium 133 mmol/L (137-145); Total Protein 6.5 g/dL (6.3-8.2)
--- NOTE | 2025-02-04 00:07 | PC.NURSE ---
Dr. Horne called, update on pt, labs, and pain slightly better after Tylenol. Orders received to discharge pt with instructions to orally hydrate, keep next scheduled appointment, and when to return to the unit.
[2025-02-04 00:28] LABS: Syphilis IgG/IgM Antibody Non-Reactive (Nonreactive)
[2025-02-04 00:57] LABS: HIV 1/2 Ab P24 Ag Result Negative (Negative)
--- NOTE | 2025-02-04 01:00 | PC.NURSE ---
Pt discharged with instructions to orally hydrate, keep next scheduled appointment, and when to return to the unit, pt verbalizes understanding.
--- NOTE | 2025-02-05 08:43 | PM.OBTRLD ---
OB - Triage/Final Diagnosis Visit Information Comments/Additional reasons for admission: I have assessed the risk for this patient, Luana Guevara, and determined that she would benefit from observation care. Evaluation Laboratory results: Laboratory Tests 02/03/25 02/03/25 22:16 23:16 WBC 10.9 H RBC 3.98 L Hgb 9.1 L Hct 29.7 L MCV 74.6 L MCH 22.9 L MCHC 30.6 L RDW 13.3 Plt Count 295 MPV 10.1 Sodium 133 L Potassium 3.6 Chloride 106 Carbon Dioxide 21 L Anion Gap 6 BUN 4 L Creatinine 0.55 L Estim Creat Clear Calc 150 Estimated GFR > 60 Glucose 85 Calcium 8.8 Total Bilirubin 0.3 AST 17 ALT 8 Alkaline Phosphatase 117 Total Protein 6.5 Albumin 3.2 L Urine Color Yellow Urine Appearance Cloudy H Urine pH 7.5 Ur Specific [place] 1.012 Urine Protein Trace Urine Glucose (UA) Negative Urine Ketones 1+ H Ur Blood (Man) Negative Urine Nitrate Negative Urine Bilirubin Negative Urine Urobilinogen 1.0 Add Ur Microanalysis Reviewed Leukocyte Esterase Rfl 3+ H Urine RBC 0-2 Urine WBC 21-50 H Ur Squamous Epith Cells Occasional Urine Bacteria 4+ H Urine Casts 3-5 Syphilis IgG/IgM Ab Non-reactive HIV 1&2 Ab/P24 Ag 4thGn Negative Final Diagnosis (1) Abdominal pain affecting : Code(s): O26.899 - Other specified related conditions, unspecified trimester; R10.9 - Unspecified abdominal pain Status: Acute
[2025-02-07 18:08] LABS: Total Bile Acids 2.3 umol/L (.)
== END 2025-02-04 01:00 | disposition home or self-care (01) ==
PROVIDERS: Admitting Provider Obstetrics & Gynecology; PCP Internal Medicine; Visit Provider Obstetrics & Gynecology
DX: O26.893 Other specified pregnancy related conditions, third trimester (principal); R10.9 Unspecified abdominal pain; Z3A.30 30 weeks gestation of pregnancy
CPT/HCPCS: 36415; 80053; 81001; 82542; 85027; 86593; 86703; 87086; A9270; G0378; G0379; G0432

== ENCOUNTER 2025-02-13 10:58 | Outpatient (CLI) | payer OTHER, SELFPAY ==
--- OUTSIDE RECORDS SUMMARY | 2025-02-13 11:02 | XMS_ITS | Clinical Summary ---
Author Organization [facility] [employer] Address [address] 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 This disclosure is being madepursuant to the Care Everywhere program and may not contain all information available regarding this patient. 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
--- OUTSIDE RECORDS SUMMARY | 2025-02-13 11:02 | XMS_ITS | Clinical Summary ---
Author Organization [facility] Address [address] [place] [address] Phone Care Team Providers Care Music Educator Name Role Phone Provider, None Primary Care [...] this topic Insurance MEDICAID [place] Care Teams Music Educator Relationship Specialty Start Date End Date Provider, None [facility] PCP - General 02/05/24
[2025-02-13 12:07] LABS: Hematocrit 33.0 % (37.0-47.0); Hemoglobin 9.9 g/dL (12.0-15.0); Immature Granulocyte Percent A 1.4 % (0-0.5); Lymphocytes Absolute Auto 1.92 K/mm3 (0.9-3.2); Mean Corpuscular HGB Conc 30.0 g/dl (32-36); Mean Corpuscular Hemoglobin 22.6 pg (26-34); Mean Corpuscular Volume 75.3 fl (80-100); Nucleated Red Blood Cells Absolute Auto 0.000 K/mm3 (0.0-0.012); Nucleated Red Blood Cells Perc 0.0 % (0.0-0.2); Platelet Count Result 323 k/mm3 (150-375); Red Blood Count 4.38 M/mm3 (4.2-5.4); White Blood Count 9.4 K/mm3 (4.5-10.0)
[2025-02-13 12:31] LABS: Glucose 1 Hour PP 50gm Dose 109 mg/dL
[2025-02-13 12:59] LABS: Syphilis IgG/IgM Antibody Non-Reactive (Nonreactive)
[2025-02-13 13:11] LABS: HIV 1/2 Ab P24 Ag Result Negative (Negative)
== END 2025-02-13 10:59 | disposition home or self-care (01) ==
LOC: ANHLAB 10:59
PROVIDERS: PCP Internal Medicine; Visit Provider Obstetrics & Gynecology
DX: Z34.90 Encounter for supervision of normal pregnancy, unspecified, unspecified trimester (principal)
CPT/HCPCS: 36415; 82947; 85025; 86593; 86703; G0432

== ENCOUNTER 2025-03-26 20:49 | Inpatient (IN) | payer OTHER, SELFPAY ==
[2025-03-26] VITALS (38 sets, daily range): BP systolic 104–135; BP diastolic 65–91; PULSE 70–135; TEMP 36.6; O2SAT 92–100; BMI 34.5
[2025-03-26 21:53] LABS: Hematocrit 27.7 % (37.0-47.0); Hemoglobin 8.4 g/dL (12.0-15.0); Immature Granulocyte Percent A 0.9 % (0-0.5); Lymphocytes Absolute Auto 2.41 K/mm3 (0.9-3.2); Mean Corpuscular HGB Conc 30.3 g/dl (32-36); Mean Corpuscular Hemoglobin 20.5 pg (26-34); Mean Corpuscular Volume 67.6 fl (80-100); Nucleated Red Blood Cells Absolute Auto 0.000 K/mm3 (0.0-0.012); Nucleated Red Blood Cells Perc 0.0 % (0.0-0.2); Platelet Count Result 282 k/mm3 (150-375); Red Blood Count 4.10 M/mm3 (4.2-5.4); White Blood Count 9.5 K/mm3 (4.5-10.0)
[2025-03-26] MEDS: LACTATED RINGERS 1,000 ML 125 ML IV CONT ×2 (22:00→23:00)
[2025-03-26 22:04] LABS: Anisocytosis 1+; Microcytosis 1+ (NORMAL)
[2025-03-26 22:05] LABS: Ovalocytes 1+; Schistocytes None Seen
--- NOTE | 2025-03-26 22:16 | LDADM ---
This patient, Luana Guevara, was admitted to Labor/Delivery/Recovery 105 on 03/26/25 at 20:49. Plans for labor, pain management and were discussed with patient. Patient/family oriented to hospital policies and general routines including ID bracelet, bed and alarms, visiting hours, pain management, procedures, bathroom and other care routines, personal items, smoking policy, room service/diet and guest tray routines, infant security routines, and visiting hours. Patient/Family are encouraged to report perceived risks to care and to ask questions if they do not understand what they are told or what they should do. See OBIX for further documentation.
[2025-03-26 22:47] LABS: Syphilis IgG/IgM Antibody Non-Reactive (Nonreactive)
--- NOTE | 2025-03-26 23:09 | WPDANESEPP ---
Anes - Eval Pre Procedure Procedure: Labor Epidural Date/Time: 03/26/25 23:09 Surgeon: Arvin Preop Diagnosis: Labor Pain Pre Op Diagnosis: contractions Patient Data Age: 29 Gender: F Height: 1.7 m Weight: 100 kg Last Vital Signs Pulse 82 03/26/25 23:01 BP 112/81 03/26/25 23:01 Pulse Ox 98 03/26/25 23:05 O2 Del Method Room Air 03/26/25 22:15 Allergies Allergy/AdvReac Type Severity Reaction Status Date / Time No Known Allergies Allergy Verified 03/26/25 22:35 Home Medications ?Medication ?Instructions ?Recorded ?Confirmed ?Type vitamins 30 30 mg iron-10 cap PO 08/14/24 03/25/25 History mg iron-folic acid 1 mg-om3 capsule ferrous sulfate 325 mg (65 mg 325 mg PO DAILY 09/17/24 03/26/25 History iron) tablet aspirin 81 mg tablet,delayed 81 mg PO DAILY 10/15/24 03/26/25 History release Held on 03/26/25. Instructions: Patient no longer taking famotidine 20 mg tablet (Pepcid) 20 mg PO DAILY #90 tabs 11/12/24 03/26/25 Rx ondansetron HCl 4 mg tablet 4 mg PO Q6H PRN nausea and 11/12/24 03/26/25 Rx vomiting #30 tabs sertraline 50 mg tablet 50 mg PO DAILY #90 tabs 12/10/24 03/26/25 Rx albuterol sulfate 90 mcg/actuation inhalation PRN shortness of breath 03/26/25 History aerosol inhaler or wheezing Laboratory Tests 03/26/25 21:24 WBC 9.5 K/mm3 (4.5-10.0) RBC 4.10 L M/mm3 (4.2-5.4) Hgb 8.4 L g/dL (12.0-15.0) Hct 27.7 L % (37.0-47.0) MCV 67.6 L fl (80-100) MCH 20.5 L pg (26-34) MCHC 30.3 L g/dl (32-36) RDW 14.5 % (11.5-14.5) Plt Count 282 k/mm3 (150-375) MPV 10.6 H fl (7.4-10.4) Immature Gran % (Auto) 0.9 H % (0-0.5) Neut % (Auto) 66.9 % (45.5-73.1) Lymph % (Auto) 25.3 % (18.3-44.2) [place] % (Auto) 6.3 % (2.6-8.5) Eos % (Auto) 0.1 % (0-4.4) Baso % (Auto) 0.5 % (0.2-1.2) Lymph # (Auto) 2.41 K/mm3 (0.9-3.2) [place] # (Auto) 0.6 K/mm3 (0.1-0.6) Eos # (Auto) 0.0 K/mm3 (0-0.3) Baso # (Auto) 0.1 K/mm3 (0.0-0.1) Abs Immat Gran (auto) 0.09 H K/mm3 (0.00-0.031) Absolute Neuts (auto) 6.4 K/mm3 (1.3-6.7) Absolute Nucleated RBC 0.000 K/mm3 (0.0-0.012) Band Neutrophils % Not Reportable Nucleated RBC % 0.0 % (0.0-0.2) Platelet Estimate Adequate (Adequate) Anisocytosis 1+ Microcytosis 1+ (NORMAL) Ovalocytes 1+ Schistocytes None seen Syphilis IgG/IgM Ab Non-reactive (Nonreactive) Blood Type O Positive Antibody Screen Negative : gestational age (, LEONID 04/11/25) Patient hx anesthesia problems: none Family hx anesthesia problems: none Results Review: All pre-operative results and documents have been reviewed as part of the pre-operative evaluation. PENDING SALE TO [facility] Past Medical History Medical History Missed x 6 PCOS (polycystic ovarian syndrome) Scoliosis Anxiety and depression No active medical problems Surgical History Surgical History History of appendectomy age 7 Family History Family History Mother Hypertension Other Diabetes mellitus maternal and paternal side Grandparent Cerebrovascular accident maternal grandfather Social History Social History Years smoked: 9 Smoking status: Current every day smoker Tobacco type: e-cigarettes/vaping Second hand tobacco smoke exposure: Yes Additional smoking assessment comments: Pt. states she quit cigarettes 2 years ago and switched to vaping. 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
[2025-03-27] VITALS (147 sets, daily range): BP systolic 80–136; BP diastolic 53–93; PULSE 56–187; RESP 14–18; TEMP 36.2–37.1; O2SAT 85–100
[2025-03-27] MEDS: LACTATED RINGERS 1,000 ML 125 ML IV CONT ×2 (00:15→03:45)
--- NOTE | 2025-03-27 01:02 | PM.IMHP ---
H&P: HPI History of Present Illness Date/Time: 03/27/25 01:02 Chief Complaint: Contractions Narrative: 29 y/o at 37 6/7 weeks here with contractions. She says she takes iron. She uses marijuana and an electronic cigarette daily. She says there were no other problems during this . She received an epidural for pain control. Afterward she had some fairly heavy vaginal bleeding. I was called by nursing to come and evaluate. Review of Systems Review of Systems: All systems reviewed & are unremarkable except as noted in HPI and below PMFSH Past Medical History Medical History Missed x 6 PCOS (polycystic ovarian syndrome) Scoliosis Anxiety and depression No active medical problems Surgical History Surgical History History of appendectomy age 7 Family History Family History Mother Hypertension Other Diabetes mellitus maternal and paternal side Grandparent Cerebrovascular accident maternal grandfather Social History Social History Years smoked: 9 Smoking status: Current every day smoker Tobacco type: e-cigarettes/vaping Second hand tobacco smoke exposure: Yes Additional smoking assessment comments: Pt. states she quit cigarettes 2 years ago and switched to vaping. 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 Instructions: Patient no longer taking famotidine 20 mg tablet (Pepcid) 20 mg PO DAILY #90 tabs 11/12/24 03/26/25 Rx ondansetron HCl 4 mg tablet 4 mg PO Q6H PRN nausea and 11/12/24 03/26/25 Rx vomiting #30 tabs sertraline 50 mg tablet 50 mg PO DAILY #90 tabs 12/10/24 03/26/25 Rx albuterol sulfate 90 mcg/actuation inhalation PRN shortness of breath 03/26/25 History aerosol inhaler or wheezing Allergies Allergy/AdvReac Type Severity Reaction Status Date / Time No Known Allergies Allergy Verified 03/26/25 22:35 Vital Signs Vital Signs - 24 hr 03/26/25 21:15 03/26/25 21:30 03/26/25 21:45 Pulse Rate 87 98 102 H Blood Pressure 113/80 107/86 109/86 Pulse Oximetry Oxygen Delivery 03/26/25 22:00 03/26/25 22:15 03/26/25 22:15 Pulse Rate 90 88 Blood Pressure 120/91 H 115/79 Pulse Oximetry Oxygen Delivery Room Air 03/26/25 22:30 03/26/25 22:45 03/26/25 23:01 Pulse Rate 75 78 82 Blood Pressure 111/78 111/78 112/81 Pulse Oximetry Oxygen Delivery 03/26/25 23:05 03/26/25 23:10 03/26/25 23:14 Pulse Rate 75 Blood Pressure 119/84 Pulse Oximetry 98 100 Oxygen Delivery 03/26/25 23:15 03/26/25 23:18 03/26/25 23:20 Pulse Rate 75 85 92 Blood Pressure 119/81 131/71 135/74 Pulse Oximetry 100 Oxygen Delivery 03/26/25 23:21 03/26/25 23:23 03/26/25 23:25 Pulse Rate 76 77 Blood Pressure 118/75 119/81 Pulse Oximetry 99 Oxygen Delivery 03/26/25 23:26 03/26/25 23:28 03/26/25 23:30 Pulse Rate 128 H 132 H Blood Pressure 105/76 104/66 Pulse Oximetry 100 Oxygen Delivery 03/26/25 23:31 03/26/25 23:34 03/26/25 23:35 Pulse Rate 114 H 105 H Blood Pressure 104/67 106/65 Pulse Oximetry 100 Oxygen Delivery 03/26/25 23:36 03/26/25 23:37 03/26/25 23:40 Pulse Rate 110 H 119 H Blood Pressure 109/83 116/75 Pulse Oximetry 100 Oxygen Delivery 03/26/25 23:41 03/26/25 23:43 03/26/25 23:45 Pulse Rate 121 H 89 Blood Pressure 109/80 118/72 Pulse Oximetry 100 Oxygen Delivery 03/26/25 23:46 03/26/25 23:48 03/26/25 23:50 Pulse Rate 106 H 117 H Blood Pressure 116/66 126/76 Pulse Oximetry 100 Oxygen Delivery 03/26/25 23:52 03/26/25 23:53 03/26/25 23:54 Pulse Rate 101 H 92 Blood Pressure 119/84 117/69 Pulse Oximetry 93 92 Oxygen Delivery 03/26/25 23:57 03/26/25 23:58 03/27/25 00:00 Pulse Rate 115 H 137 H Blood Pressure 105/77 83/57 L Pulse Oximetry 100 Oxygen Delivery 03/27/25 00:01 03/27/25 00:03 03/27/25 00:06 Pulse Rate 132 H 91 80 Blood Pressure 98/71 L 124/82 120/82 Pulse Oximetry 100 Oxygen Delivery 03/27/25 00:08 03/27/25 00:09 03/27/25 00:12 Pulse Rate 72 124 H Blood Pressure 113/76 113/68 Pulse Oximetry 100 Oxygen Delivery 03/27/25 00:13 03/27/25 00:15 03/27/25 00:18 Pulse Rate 178 H Blood Pressure 96/59 L Pulse Oximetry 100 98 Oxygen Delivery 03/27/25 00:20 03/27/25 00:31 03/27/25 00:36 Pulse Rate Blood Pressure 108/90 Pulse Oximetry 98 99 100 Oxygen Delivery 03/27/25 00:37 03/27/25 00:40 03/27/25 00:42 Pulse Rate 85 Blood Pressure 111/72 Pulse Oximetry 100 100 Oxygen Delivery 03/27/25 00:45 03/27/25 00:48 03/27/25 00:50 Pulse Rate 93 82 Blood Pressure 114/79 121/79 Pulse Oximetry 100 100 Oxygen Delivery 03/27/25 00:51 03/27/25 00:54 03/27/25 00:55 Pulse Rate 82 187 H Blood Pressure 116/82 123/89 Pulse Oximetry 100 Oxygen Delivery 03/27/25 00:58 03/27/25 01:00 Pulse Rate 168 H 78 Blood Pressure 104/53 L 107/70 Pulse Oximetry 100 Oxygen Delivery Exam Const: Other: Well-developed, well-nourished female in no acute distress. Neck: Other: Neck: Trachea midline, no thyromegaly or masses. Resp: Other: Lungs: Normal respiratory effort. Clear to auscultation bilaterally. Cardio: Other: Heart: Regular rate and rhythm with normal S1-S2. GI: Other: ABD: Soft, nontender, nondistended, gravid. No guarding or rebound tenderness. No hepatosplenomegaly. NST reactive. TOCO: contractions every 2 min. : Other: Cervix: 4-5 cm / 50 / -2. Vertex. AROM with bloody fluid. Skin: Other: Skin: No lesions, rashes or ulcers noted. Extrem: Other: Extremities: nontender with no edema Psych: Other: Mental status grossly normal, with normal mood and affect. H&P: Results Labs Labs: Short CBC 03/26/25 Range/Units 21:24 WBC 9.5 (4.5-10.0) K/mm3 Hgb 8.4 L (12.0-15.0) g/dL Hct 27.7 L (37.0-47.0) % Plt Count 282 (150-375) k/mm3 Assessment and Plan Assessment and plan (1) : Qualifiers: Weeks of gestation: 37 weeks Qualified Code(s): Z3A.37 - 37 weeks gestation of Code(s): Z34.90 - Encounter for supervision of normal , unspecified, unspecified trimester Status: Acute Assessment and Plan: A: IUP at term with labor. Vaginal bleeding, currently with reassuring maternal and wellbeing. P: AROM/IUPC, Epidural in place. Will watch closely. (2) Active labor at term: Status: Acute
--- NOTE | 2025-03-27 02:41 | PM.OBPNLAB ---
Pain Control Date/time seen: 03/27/25 02:41 Comments: Comfortable with epidural. Pelvic Exam Dilation (cm): 4 Effacement (%): 50 station: -2 Comments: Scant blood on pad. No active bleeding. Contractions Contraction frequency: 3 Contraction pattern: Regular Status status: Category l Assessment and Plan Comments: Reassuring NST. Continue labor.
[2025-03-27] MEDS: OXYTOCIN 30 UNITS/NS 500 ML 30 UNITS/500 ML BAG 999 UNITS IV CONT (07:56)
--- NOTE | 2025-03-27 08:14 | PM.OBPRVD ---
OB - Vaginal Delivery Note Procedure Delivery date: 03/27/25 Induction method: None Delivery monitor: External FHT and Internal Uterine Route of delivery: Episiotomy description: None Laceration Description: Periurethral Delivery repair: chromic Specimen: No Quantitative Blood Loss (ml): 300 Anesthesia type: Epidural Disposition: Floor Complications: No immediate complications Narrative: Patient prepped and draped in the usual manner for this procedure. Maternal expulsive effort delivered vertex, nuchal cord noted and reduced, rest of the baby delivered without difficulty. Placenta delivered spontaneously. Periurethral laceration was approximated using 2-0 chromic in a [id number] suture. Uterus well contracted, immediate postoperative condition of mother baby both excellent. [place] Baby Gestational Age by Date: 38 gender: Male presentation: vertex Placenta delivery description: Spontaneous Cord Vessel Description: 3 Vessels, Nuchal Cord and Reduced
[2025-03-27] MEDS: OXYTOCIN 30 UNITS/NS 500 ML 30 UNITS/500 ML BAG 125 UNITS IV CONT (08:29)
[2025-03-27] MEDS: ACETAMINOPHEN 325 MG TABLET 650 MG (10:30)
--- NOTE | 2025-03-27 11:05 | OBPPTRN ---
Patient transferred to post room #282 via WC. Support person present. Oriented to unit, room, information board, rooming in, admission packet and security measures. Patient verbalizes understanding. Pt legs numb from epidural. Pt instructed to call for assistance when needing to get out of bed. Call light within reach
[2025-03-27] MEDS: SERTRALINE HCL 50 MG TABLET PO (11:08)
[2025-03-27] MEDS: MULTIVIT/MIN/PREN/FOL AC/IRON TABLET 1 TAB PO (11:08)
[2025-03-27] MEDS: WITCH HAZEL 40 PADS 1 PAD TOPICAL (11:08)
[2025-03-27] MEDS: IBUPROFEN 600 MG TABLET (11:08)
[2025-03-27] MEDS: FAMOTIDINE 20 MG TABLET PO (11:08)
[2025-03-27] MEDS: BENZOCAINE 20% AER SPR (*SP) 56 GM CAN 1 SPRAY TOPICAL (11:08)
--- NOTE | 2025-03-27 12:00 | PC.NURSE ---
Mother attempted to breastfeed but he was sleepy. When I checked in with her, baby was swaddled and sleeping in the crib. Mom remembers that her first baby was very sleepy initially and we reviewed normal behavior. Patient is encouraged to watch for early feeding cues and initiate a feeding when seen. If baby is still sleeping soundly in a half hour, she should place him skin to skin and attempt to latch again. She is advised to call out for assistance as needed. Primary RN updated.
--- NOTE | 2025-03-27 13:30 | PC.NURSE ---
Patient called out because she is still struggling to wake baby to feed. He has also been spitting up some clear fluid. We were able to latch to the left breast in cradle hold and baby opens his mouth wide to latch. Baby would have bursts of eager sucking and then would stop and hold the nipple in his mouth without any more effort to eat. We stimulated him to suck and stay awake as much as possible. We worked for about 15 minutes, switching to the right breast at the end of the attempt without any success. Baby ate for a total of 5 minutes off and on with some good strong suckles. Patient is advised to continue watching for early feeding cues and to try feeding again within 1-2 hours.
--- NOTE | 2025-03-27 14:03 | PC.NURSE ---
1400- This RN assisted Pt up to restroom to void via Anitra steady. Pt tolerated well. Assisted pt back into bed. Will continue to monitor.
--- NOTE | 2025-03-27 14:59 | PC.NURSE ---
1459- This RN spoke with Dr. Macario- pt requesting nicotine patch as she is a vapor and smoker of cigarettes. Order given for Nicotine 7mg transdermal patch qd.
[2025-03-27] MEDS: NICOTINE (*PBKC) 7 MG PATCH 1 PATCH TRANSDERM (15:35)
--- NOTE | 2025-03-27 16:15 | PC.NURSE ---
Patient called out to say that baby is sleepy and not waking to feed. She has him swaddled and is trying to breastfeed under a blanket due to having visitors in the room. Patient states that baby latched and suckled a few times but then sleeps. She requests a bottle to supplement with formula. This is what she did with her first child. Parents are instructed on bottle feeding, appropriate volumes, and burping. Mom is educated that if she does not put baby to breast frequently, she should initiate pumping to support her milk supply. Patient knows a hospital pump is available to her if needed. Patient verbalizes understanding of this information. Primary RN updated.
[2025-03-27] MEDS: ACETAMINOPHEN 325 MG TABLET 650 MG PO (16:31)
[2025-03-27] MEDS: IBUPROFEN 600 MG TABLET PO (16:32)
[2025-03-28] MEDS: ACETAMINOPHEN 325 MG TABLET 650 MG PO ×2 (00:40→08:29)
[2025-03-28] MEDS: IBUPROFEN 600 MG TABLET PO ×2 (00:40→08:30)
[2025-03-28] MEDS: NICOTINE (*PBKC) 7 MG PATCH 1 PATCH TRANSDERM (00:40)
[2025-03-28 04:25] LABS: Hematocrit 24.0 % (37.0-47.0); Hemoglobin 7.2 g/dL (12.0-15.0)
[2025-03-28] MEDS: MULTIVIT/MIN/PREN/FOL AC/IRON TABLET 1 TAB PO (08:29)
[2025-03-28] MEDS: FAMOTIDINE 20 MG TABLET PO (08:29)
[2025-03-28] MEDS: DOCUSATE SODIUM 100 MG CAPSULE PO (08:29)
[2025-03-28] MEDS: SERTRALINE HCL 50 MG TABLET PO (08:29)
[2025-03-28 08:37] VITALS: BP 124/76; PULSE 77; RESP 18; TEMP 36.5; O2SAT 99
--- NOTE | 2025-03-28 09:45 | PC.NURSE ---
Consulted with patient to assess needs related to . Discussed with mother her successes, concerns and any questions she has. We reviewed working with the , supporting breast, protecting her nipples with an optimal deep latch, using the sandwich hold and latching infant deeper, good positioning, and good hand washing. Encouraged understanding the benefits of skin to skin, unwrapping to breastfeed, responding to feeding cues, frequencies of feeding 8-12 times in 24 hours (approximately 2-3 hours), duration of feedings, milk production, intake/output feeding sheet and signs of adequate intake encouraging swallowing at the breast. Reviewed positioning and alignment, supporting breast, off-centered (asymmetrical latch) and leading with the chin with big, open, wide gape. Infant latched optimally to the [right] breast in [cross cradle] position. Education given to the mother of how to visualize the suckling (with good rocking jaw motion) swallows (dropping of the lower jaw) and how to listen for drinking at the breast (the ka sound). The infant was [able] to maintain latch without discomfort to mother. Nipple care reviewed with optimal latch, good positioning and using clean hands when touching her breast. Resources used to facilitate learning were used from the [visual handouts/ tool/mom and baby guide]. Mother voiced understanding of the education shared, to call for assistance if the infant does not latch or if there is discomfort with . Reported to the Primary RN.
--- NOTE | 2025-03-28 11:31 | P.PNOB_ITS ---
OB - PN: Subj Subjective Date/time seen: 03/28/25 11:31 Narrative: Pain OK. Would like circumcision for son. Would like to go home. OB - PN: Obj Data Labs 03/28/25 03:41 Labs: Laboratory Results - last 24 hr 03/28/25 03:41 Hgb 7.2 L Hct 24.0 L OB - PN A/P Assessment and Plan (1) (normal spontaneous vaginal delivery): Code(s): O80 - Encounter for full-term uncomplicated delivery Status: Acute (2) Smoker: Code(s): F17.200 - Nicotine dependence, unspecified, uncomplicated Status: Acute (3) Marijuana use: Code(s): F12.90 - Cannabis use, unspecified, uncomplicated Status: Acute Plan day: 1 Comments: A: PPD#1, doing well. P: Reviewed circumcision in detail. Also, I reviewed and encouraged cessation of cigarette smoking / vaping and marijuana use. Home to f/u 6 weeks. Exam 2 Psych: Other: AVSS ABD soft, nontender, fundus firm EXT nontender
--- NOTE | 2025-03-28 11:36 | PM.OBDSVD ---
DS: Admitting Diagnosis Discharge Date 03/28/25 Admitting Diagnosis IUP at term Labor DS: Discharge Diagnosis Discharge Diagnosis (1) (normal spontaneous vaginal delivery): Code(s): O80 - Encounter for full-term uncomplicated delivery Status: Acute OB - DS: Summary OB Procedures : NST OB Procedures Intrapartum: Spontaneous Vag Delivery OB Procedures: : None Peripartum Data Laceration Description: Periurethral Episiotomy description: None Time Spent with Patient Time attestation: Total time spent providing and/or coordinating discharge services: DS: Data Data Completed and Pending Labs on day of discharge: Labs from last 24 hours 03/28/25 03:41 Hgb 7.2 L Hct 24.0 L Discharge Plan Discharge Attending physician on discharge: Raghu Sheridan Discharging Clinician: Ky Macario Patient Disposition: Home Activity: pelvic rest Diet: regular Discharge Instructions: Call or return if temperature above 100.4? F, increased abdominal pain, increased vaginal bleeding or any new problems. Patient Language: South African Stand Alone Forms: General Discharge Information Follow-up/Referrals: Raghu Sheridan MD [Physician, INNOVATION ANALYST] - Call for Appointment Discharge Medications: New ibuprofen 600 mg tablet 600 mg PO Q6H PRN (Reason: cramps) Qty: 30 0RF Continued PNV 65-cazc-oghgf hyym-wyuxq-4 30 mg iron-10 mg iron-1 mg capsule PO ferrous sulfate 325 mg (65 mg iron) tablet 325 mg PO DAILY famotidine [Pepcid] 20 mg tablet 20 mg PO DAILY Qty: 90 2RF albuterol sulfate 90 mcg/actuation HFA aerosol inhaler INHALATION PRN (Reason: shortness of breath or wheezing) Discontinued aspirin 81 mg tablet,delayed release (DR/EC) 81 mg PO DAILY ondansetron HCl 4 mg tablet 4 mg PO Q6H PRN (Reason: nausea and vomiting) Qty: 30 1RF sertraline 50 mg tablet 50 mg PO DAILY Qty: 90 3RF Date of admission: 03/26/25 20:49 Primary Care Provider: Trisha,Mitch Reinoso Admitting Provider: Raghu Sheridan Attending physician on admission: Raghu Sheridan Condition: Stable
[2025-03-28] MEDS: TETANUS,DIPHTHERIA,AC PERTUSSIS ADULT (0.5 ML) BOOSTRIX IM (16:20)
== END 2025-03-28 18:06 | disposition home or self-care (01) | DRG 560 ==
LOC: ANHLDR 03-27 07:41 → ANHOB2 03-28 11:35 → ANHLDR 03-31 10:45
PROVIDERS: Obstetrics & Gynecology; Admitting Provider Obstetrics & Gynecology; PCP Internal Medicine; Visit Provider Obstetrics & Gynecology
DX: O69.81X0 Labor and delivery complicated by cord around neck, without compression, not applicable or unspecified (principal); Z37.0 Single live birth; Z3A.37 37 weeks gestation of pregnancy; O71.82 Other specified trauma to perineum and vulva; O99.334 Smoking (tobacco) complicating childbirth; F17.290 Nicotine dependence, other tobacco product, uncomplicated; F12.90 Cannabis use, unspecified, uncomplicated; O99.324 Drug use complicating childbirth
CPT/HCPCS: 36415; 85014; 85018; 85025; 86593; 86850; 86900; 86901; 90715; A9270; J2590; J2795; J7120

== ENCOUNTER 2025-05-27 14:45 | Outpatient (CLI) | payer OTHER, SELFPAY ==
[2025-05-27 16:24] LABS: Beta HCG Quantitative < 2.39 mIU/ML
--- OUTSIDE RECORDS SUMMARY | 2025-05-27 19:40 | XMS_ITS | Data Portability ---
Author Organization [facility] [place] Address [address] [place] [address] [place] [address] Assessment No assessment recorded. Plan of Treatment Reminders Order Date Submit Date Provider Last Modified By Organization Details Last Modified Time Details Appointments None recorded. Lab test, urine 2023 [address], [address], [place], [address], 13:08:48 Referral None recorded. Procedures None recorded. Surgeries None recorded. Imaging US, obstetric, transvagina l [address], [address], [address], [place], [address], 4 23:33:04 US, obstetric, 1st trimester [address], [facility] [address], [place], [address], 21:14:04 Medication Orders Cytotec 200 mcg tablet 2023 024 [facility] [address] [place], [address], 4 12:50:32 promethazin e 25 mg tablet 2023 024 [facility] [address] [place], [address], 12:50:42 Patient TargetsNo targets recorded. Patient InstructionsNo instructions recorded. Reason for Referral None Reported. Results Created Date Observation Date Name Description Value Unit Range Abnormal Flag Note LastModifiedBy Organization Detail LastModifiedTime 01/31/20 24 01/31/2024 CT/GC AND TRICH OMONA S VAGIN DIXON (RRNA ), URINE chlamydia trachomatis, PCR Negati ve negati ve Not Available [facility] (Lab) [address], [place], [address], 02/01/2024 12:53:19 01/31/20 24 01/31/2024 CT/GC AND TRICH OMONA S VAGIN DIXON (RRNA ), URINE neisseria gonorrhoeae, PCR Negati ve negati ve Not Available [facility] (Lab) [address], [place], [address], 02/01/2024 12:53:19 01/31/20 24 01/31/2024 CT/GC AND TRICH OMONA S VAGIN DIXON (RRNA ), URINE trichomonas vaginalis ribosomal RNA (rrna) Negati ve negati ve Not Available [facility] (Lab) [address], [place], [address], 02/01/2024 12:53:19 03/10/20 24 03/10/2024 BHCG, QUANT [...] Weeks 8,099 - 58,17 6 Not Available [facility] (Lab) [address], [place], [address], 03/11/2024 07:48:22 03/10/20 24 03/10/2024 LEAD, BLOOD (ADUL T/PED IATRI C) lead, whole blood <1.0 mcg/d L <3.5 See Note 1 James sis was perfo rmed by Yazan Leonard ed Plasm a Mass Spect romet ry (ICPM S) Note 1 This test was devel oped and its james tical perfo rmanc e roseanna cteri stics have been deter mined by [email or web address] [facility]. It has not been clear ed or appro mary kay by the FDA. This assay has been valid ated pursu ant to the CLIA regul ation s and is used for clini riya purpo ses. Ethni city: [facility] onian Perfo rming Organ izati on Infor fadijil n: Site ID: CB Name: [employer] ostic s-Lorenzosean Juarez Addre ss: [address] [place] [address] Direc tor: Donna Alfaro s Not Available [facility] (Lab) [address], [place], [address], 03/12/2024 10:05:19 03/18/20 24 03/18/2024 BHCG, QUANT [...] Weeks 8,099 - 58,17 6 Not Available [facility] (Lab) [address], [place], [address], 03/19/2024 05:47:33 03/18/20 24 03/18/2024 pregn chelly test, urine HCG positi ve Not Available [facility] [address], [place], [address], 03/18/2024 13:04:46 03/25/20 24 03/25/2024 BHCG, QUANT [...] Weeks 8,099 - 58,17 6 Not Available [facility] (Lab) [address], [place], [address], 03/26/2024 14:43:06 01/31/20 24 01/31/2024 US, obste tric, 1st trime ster No observ ation record ed. [facility] [address], [place], [address], 01/31/2024 18:06:17 01/31/20 24 01/31/2024 US, obste tric, follo w-up No observ ation record ed. [email or web address] [address], [place], [address], 02/01/2024 14:53:55 02/22/20 24 02/25/2024 US, obste tric, trans vagin al No observ ation record ed. [email or web address] [place] [address], [place], [address], 02/25/2024 11:46:34 02/22/20 24 02/22/2024 US, obste tric, trans vagin al No observ ation record ed. CHRISTIN Aleshia [address], [place], [address], 02/25/2024 12:03:50 Result Notes None recorded. Problems Name Problem SNOMED Code Status Onset Date Resolution Date Notes Provider Name and Address Organization Details Recorded Time Asthma 928914222 Completed very mild Dorysmary jo dobson [place] - [facility] 3 22:58:48 Asperger's disorder 08053999 Completed [facility] 3 22:58:48 growth abnormality 490398242 Completed 4% on 04/10 [facility] 3 22:58:48 89675901 Completed 202109/06/2022 [facility] 3 22:58:54 Problem Notes None recorded. Procedures Surgical History Date Name Laterality Status Provider Name and Address Organization Details Recorded Time 09/15/19 23 Date of Last Pap Smear completed [facility] 05/24/2023 10:42:30 06/18/19 05 Appendectomy completed [facility] 03/11/2022 10:33:48 Imaging Results None recorded. [...] Updated DateTime 01/31/2024 170.18 cm 34.8 kg/m2 155387.51 g 101/69 mm[Hg] Maribel Vazquez [facility] 01/31/2024 12:11:04 Date Recorded Body height Body mass index (BMI) Body weight Body height Body mass index (BMI) Body weight Systolic And Diastolic Systolic And Diastolic Provider Name and Address Organization Details Last Updated DateTime 170.18 cm 34.1 kg/m2 01382.1 4 g 170.18 cm 34.1 kg/m2 07865.1 4 g 123/78 mm[Hg] 123/78 mm[Hg] Nadia Kaiser [facility] 17:28:20 Date Recorded Body height Body mass index (BMI) Body weight Systolic And Diastolic Provider Name and Address Organization Details Last Updated DateTime 03/18/2024 170.18 cm 34 kg/m2 36816.98 g 106/84 mm[Hg] Lucie Slater [facility] 03/18/2024 12:50:08 Social History Question Answer Notes LastModified by Organizat ion Details LastModified Time Tobacco Smoking Status Never Smoker [facility] 03/11/2022 12:22:10 If You Are , [...] not available 03/11/2022 Are you able to walk independently without assistance or assistive devices? YESWOREST Information not available 03/11/2022 Are you able to care for yourself independently? Yes Information not available 03/11/2022 Do you have difficulty dressing, bathing, grooming, or toileting? No Information not available 03/11/2022 Do you or have you ever used e-cigarettes or vape? Current user of electronic cigarettes Information not available 03/11/2022 Mental Status None recorded. Family History Relationship Description Onset Age of this Age Resolved Age Notes LastModified by Organization Details LastModified Time Mother Asthma Not available 03/11/2022 13:07:52 Mother Malignant neoplasm of breast Not available 2021 13:08:04 Mother Heart disease Not available 2021 13:08:31 Mother Hyperlipidem ia [email or web address] Not available 2023 10:47:22 Mother Hypertensive disorder Not available 2021 13:09:06 Mother Malignant neoplasm of ovary Not available 2021 13:09:18 Mother Cyst of ovary [email or web address] Not available 2023 10:47:22 Brother Asthma Not available 03/11/2022 13:07:52 Maternal Grandmother Heart disease Not available 2021 13:08:31 Maternal Grandfather Heart disease Not available 2021 13:08:31 Maternal Grandfather Hyperlipidem ia [email or web address] Not available 2023 10:47:22 Maternal Grandfather Hypertensive disorder Not available 2021 13:09:06 Father Seizure disorder [email or web address] Not available 2023 10:47:22 Medical History Condition Response Anxiety Disorder Y Other Y Polycystic ovary syndrome Y Asthma Y Depression/ depression Y Gynecological [...] Diagnosis SNOMED-CT Code Diagnosis ICD10 Code Diagnosis IMO Codes Diagnosis Note [id number] Jose Wheeler MD [facility] [address] [address] 03/09/2022 11:00:19 03/09/2022 12:42:00 screening for malformation 889748131 Z36.3 [id number] MD Lester Espinal [address] [address] 03/11/2022 11:56:07 03/13/2022 15:33:14 Routine care 959306477 Z34.82 [id number] MD Lester Espinal [address] [address] 03/31/2022 10:57:44 03/31/2022 11:44:48 Routine care 722137548 Z34.82 [id number] MD Lester Espinal [address],[place] [address] 04/14/2022 11:00:57 04/14/2022 12:20:56 Nausea and vomiting 77683274 R11.2 [id number] MD Lester Espinal [address],[place] [address] 05/23/2022 11:16:08 05/23/2022 12:05:34 Vaginitis 78102973 N76.0 Routine an tenatal care 961440860 Z34.82 [id number] MD Lester Espinal [address] [address] 06/01/2022 15:15:04 06/01/2022 16:52:51 Routine care 326839966 Z34.82 [id number] Jose Wheeler MD [place] [address] [address] 07/07/2022 14:40:23 07/07/2022 16:19:52 care 609554875 Z39.2 patient is 26-year-ol d female who is 4 weeks from a vaginal . Is doing well. She stopped bleeding. Her mood is good. Her baby is good. She does not want any contracept ion at this time. She is bottle feeding. She has not had sex. She will follow-up in 2 months for well-woman exam. [id number] Jose Wheeler MD [facility] [address] [address] 09/14/2022 15:47:01 09/14/2022 16:50:46 Gynecologic examination 70974796 Z01.419 Annual gynecologi riya exam performed. Patient [...] - orderedx Pap - today depression 58 211903 F53.0 [id number] ADRIANA Vela [place] [address] [address] 11/30/2022 12:19:29 11/30/2022 15:48:19 Vulval irritation 528855000 N90.89 Reviewed vulvar care guidelines - free [...] plan of care. Venereal d isease screening 774663708 Z11.3 Contact dermatitis 38423 004 L25.9 [id number] Jose Wheeler MD [facility] [address] [address] 01/31/2024 10:47:11 01/31/2024 11:53:42 Uterine size for dates discrepancy 270560564 O26.841 Z3A.01 [id number] Jose Wheeler MD [facility] [address] [address] 01/31/2024 10:47:37 01/31/2024 12:52:11 Nausea and vomiting 50305177 R11.2 Amenorrhea 56919833 N91. 2 this patient is a 28-year-ol [...] her next visit. Previous growth restrictio n [id number] Jose Wheeler MD [facility] [address] [address] 02/22/2024 17:01:45 02/25/2024 08:29:13 Missed miscarriage 69849900 O02.1 Z3A.00 [id number] Jose Wheeler MD [facility] [address],[place] [address] 02/22/2024 17:27:19 02/26/2024 02:59:46 Missed miscarriage 23233878 O02.1 Z3A.00 This patient is a 28 [...] over 30 minutes on this patient's care. [id number] Jose Wheeler MD [facility] [address] [address] 03/18/2024 12:41:38 03/18/2024 13:16:30 Missed miscarriage 98826668 O02.1 Z3A.00 this patient is a 28-year-ol [...] Member ID Guarantor Name 04/10/2024 1 [place] [facility] Luana Guevara [id number] Luana Woods Tellor 04/18/2024 1 [facility] (MEDICAID HMO) [id number] Luana Tellor [id number] Luana Woods Tellor Notes Date Note Type [...] She was given recommendations on exercise, diet, kspl-adz-pnqhmat medications. We reviewed her obstetric history. We reviewed her medical history. We reviewed her social history. She will begin routine care at her next visit. Previous growth restriction Jose Wheeler MD [address], [place], [address], [facility] 01/31/2024 12:51:20 02/22/2024 text/html This patient [...] care. Jose Wheeler MD [address], [place], [address], [facility] 02/24/2024 22:20:48 03/18/2024 text/html this [...] instructions. Jose Wheeler MD [address], [place], [address], [facility] 03/18/2024 13:09:19 OBGyn Episode Ob Episode Information Episode Created Date Number of Fetuses Patient Bloodtype Patient rh Status Prepregnancy Weight lbs Domestic Partner Domestic Partner Phone Father Name Vineyardist Status 03/11/20 22 1 CLOSED Fetus Data First Name Last Name Admitted to NICU Weight (g) Sex Living Outcome Pediatric Complications Fetus ID Race Codes Race Delivery Type , Spontane ous [id number] Santana Calculation Initial Santana Date Initial Exam [...] Domestic Partner Domestic Partner Phone Father Name Vineyardist Status 03/11/20 22 1 CLOSED Fetus Data First Name Last Name Admitted to NICU Weight (g) Sex Living Outcome Pediatric Complications Fetus ID Race Codes Race Delivery Type , Spontane ous 14562 Santana Calculation Initial Santana Date Initial Exam [...] Domestic Partner Domestic Partner Phone Father Name Vineyardist Status 03/11/20 22 1 CLOSED Fetus Data First Name Last Name Admitted to NICU Weight (g) Sex Living Outcome Pediatric Complications Fetus ID Race Codes Race Delivery Type , Spontane ous 82525 Santana Calculation Initial Santana Date Initial Exam [...] Domestic Partner Domestic Partner Phone Father Name Vineyardist Status 03/11/20 22 1 O Positive CLOSED Fetus Data First Name Last Name Admitted to NICU Weight (g) Sex Living Outcome Pediatric Complications Fetus ID Race Codes Race Delivery Type true Full Term [id number] Vaginal Delivery Problems Problem Notes Per VIVIANA Desouza 05/19 - Pt is s cheduled weekly for BPP every Sunday until 06/05, will ONLY add on NST if growth drops below 5%, if above, NST is not warranted. VIVIANA HARTLEYNext appt: 05/29 u/s only 145PCMV NEGGBS NEG Problem Name Start Date End Date Resolution Snomed Code Not e Asthma 688632595 very mild growth abnormality 48166 4007 4% on 04/10 Asperger's disorder 77110837 Santana Calculation Initial Santana Date Initial Exam [...] Weight in lbs Pre/Post Dialysis Refused Weight 226.054543244881 BP Diastolic BP Location Tested BP Systolic [...] Weight in lbs Pre/Post Dialysis Refused Weight 229.951970551038 BP Diastolic BP Location Tested BP Systolic [...] Weight in lbs Pre/Post Dialysis Refused Weight 227.295373657191 BP Diastolic BP Location Tested BP Systolic [...] Weight in lbs Pre/Post Dialysis Refused Weight 223.700117793467 BP Diastolic BP Location Tested BP Systolic [...] Weight in lbs Pre/Post Dialysis Refused Weight 224.414797350307 BP Diastolic BP Location Tested BP Systolic BP Type 74 R arm 110 sitting Fetus Heart Rate Present A 145 Fetus Movement Comments increased lower back and pel mina pain/pressure. Flowsheet Date 07/07/2022 Romero Score Blood Edema Fundus Height Fundus Units Glucose Ketones Leukocytes Nitrite Labor Signs Protein Cervic Dilation Cervic Effacement Cervic Station Type Weight in lbs Pre/Post Dialysis Refused Weight 220.303867655017 BP Diastolic BP Location Tested BP Systolic [...] Estim ated Date of Delivery false Thalassemia (Namibian, Setswana, Mediterranean, Or Background): MCV < 80 false Neural Tube Defect (Meningomyelocele, Spina Bifi da, Or Anencephaly) false Congenital Heart Defect false Down Syndrome false Patricio-Sachs (eg, Worship, Cajun, Greek-East Timorese) f alse Carlos Disease false Sickle Cell [...] d Regional-Ep idural 39 false Svetlana Medrano [facility] Discharge Information Feeding Method Contraceptive Method Maternal HG B and HCT Levels Ob Episode Information Episode Created Date Number of Fetuses Patient Bloodtype Patient rh Status Prepregnancy Weight lbs Domestic Partner Domestic Partner Phone Father Name Vineyardist Status 03/26/20 24 1 CLOSED Fetus Data First Name Last Name Admitted to NICU Weight (g) Sex Living Outcome Pediatric Complications Fetus ID Race Codes Race Delivery Type , Spontane ous 15152 Santana Calculation Initial Santana Date Initial Exam [...] Domestic Partner Domestic Partner Phone Father Name Vineyardist Status 03/26/20 24 1 CLOSED Fetus Data First Name Last Name Admitted to NICU Weight (g) Sex Living Outcome Pediatric Complications Fetus ID Race Codes Race Delivery Type , Spontane ous 63580 Santana Calculation Initial Santana Date Initial Exam [...]
--- OUTSIDE RECORDS SUMMARY | 2025-05-27 19:41 | XMS_ITS | Clinical Summary ---
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 Name Role Phone Provider, None Primary Care [...] Health Maintenance Due Date Last Done Comments Varicella Immunization (1 of 2 - 13+ 2-dose series) 2010 Hepatitis B Immunization (1 of 3 - 19+ 3-dose series) 2016 Pap Smear 2018 Influenza Immunization (#1) 2025 SARS-COV-2 Immunization (2024- season) 2025 Respiratory Syncytial Virus (RSV) Immunization (Adult) (1 - 1-dose 75+ series) 2072 DTaP/Tdap/Td Immunization Discontinued 10/30/2020 TdaP Immunization Completed 10/30/2020 Hepatitis C Virus (HCV) Screening Completed 022 Human Papillomavirus (HPV) Immunization (No Doses Required) Completed Meningococcal Immunization (ACWY) Aged Out No longer eligible based on patient's age to complete this topic Pneumococcal Immunization Combined Aged Out No longer eligible based on patient's age to complete this topic Rotavirus Immunization Aged Out No lo nger eligible based on patient's age to complete this topic Insurance [place]ICAID [place] Care Teams Mechanical Systems Design Engineer Relationship Specialty Start Date End Date Provider, None [place] PCP - General 02/05/24
--- OUTSIDE RECORDS SUMMARY | 2025-05-27 19:41 | XMS_ITS | Clinical Summary ---
Author Organization [facility] Address [address] [place] [address] Care Team Providers Care Customer Records Division Supervisor Name Role Phone Unavailable Primary Care Provider Unavailabl e Source Comments [facility],non-owned Affiliates and Associated Physician Practices is amultiple site organization consisting of ambulatory clinics and hospital sitesin [place], [place], [place] and [place]. This disclosure is being madepursuant to the Care Everywhere program and may not contain all information available regarding this patient. Last updated 18.[facility] Allergies No known active allergies Medications * [...] on file Legal Sex Female 5:38 AM CONFERENCE COORDINATOR Gender Identity Not on file Sexual Orientation Not on file Last Filed Vital Signs Vital Sign Reading Time Taken Comments Blood Pressure 112/66 05/01/2022 3:49 PM CONFERENCE COORDINATOR Pulse 75 05/01/2022 3:49 PM CONFERENCE COORDINATOR Temperature - - Respiratory Rate - - Oxygen Saturation - - Inhaled Oxygen Concentration - - Weight 88 kg (193 lb 14.4 oz) 08/27/2014 11:23 A M CDT Height 169.1 cm (5' 6.58) 08/27/2014 11:23 AM C DT Body Mass Index 30.76 08/27/2014 11:23 AM CDT Plan of Treatment Health Maintenance Due Date Last Done Comments HIV SCREENING 2012 HEPATITIS C SCREENING 08/30/2015 DTAP/TDAP/TD VACCINES (1 - Tdap) 2016 HEPATITIS B VACCINE (1 of 3 - 19+ 3-dose series) 2016 PAP SMEAR 2018 DEPRESSION SCREENING 06/18/2024 HPV VACCINE (1 - 3-dose SCDM series) 2024 COVID-19 VACCINE (1 - 2024-2 6 season) 2025 INFLUENZA VACCINE (#1) 2025 ZOSTER VACCINE (1 of 2) 09/04/2047 HIB VACCINE Aged Out No longer eligi [...] age to complete this topic Insurance [facility] [place]
== END 2025-05-27 14:46 | disposition home or self-care (01) ==
LOC: ANHLAB 14:47
PROVIDERS: PCP Internal Medicine; Visit Provider Student in an Organized Health Care Education/Training Program
DX: N92.6 Irregular menstruation, unspecified (principal)
CPT/HCPCS: 36415; 84702